=== PATIENT | male | born 1960 | race Caucasian/White ===

== ENCOUNTER → 2016-07-30 | Day surgery (SDC) | payer BC ==
[~2016-07-30] MED LIST: ACETAMINOPHEN TAB 325 MG TAB PO PRN; ALPRAZolam 0.25 MG TAB PO PRN; ALPRAZolam 0.5 MG TAB PO PRN; ASPIRIN 325 MG TAB PO STA; ATORVASTATIN 80 MG TAB PO STA; HEPARIN SODIUM 1,000 UNIT/ML VIAL ONE; HYDROmorphone 2 MG/ML 1 ML SYRINGE IV ONE; HYDROmorphone 2 MG/ML 1 ML SYRINGE ONE; IOHEXOL 350 MG/ML 125ML BOTTLE INJ ONE; LIDOCAINE 2% INJ 20 MG/ML (20 ML MDV) ONE; LIDOCAINE 2% INJ 20 MG/ML SQ ONE; MIDAZOLAM 2 MG/2 ML VIAL IV ONE; MIDAZOLAM 2 MG/2 ML VIAL ONE; NITROGLYCERIN SL TABS 0.4 MG TAB SUBLINGUAL PRN; RX INFO: IV CONTRAST WAS GIVEN 1 EACH MISC MISCELLANE PRN; SODIUM CHLORIDE 0.9% 1,000 ML IV ONE; SODIUM CHLORIDE 0.9% 1,000 ML IV SCH; SODIUM CHLORIDE 0.9% 1,000 ML in EMPTY BAG 1 BAG IV ONE; VERAPAMIL 2.5 MG/ML 2 ML AMP ONE; diphenhydrAMINE 50 MG/ML 1 ML VIAL IVP ONE; diphenhydrAMINE 50 MG/ML 1 ML VIAL ONE
[2016-07-30 08:09] VITALS: RESP 16; TEMP 98.6
[2016-07-30 08:21] LABS: Glucose,Whole Blood 160 mg/dL (75-99)
[2016-07-30 08:37] LABS: Basophils # (A) 0.1 k/uL (0-0.2); Basophils % (A) 1 %; CH 31.4; CHCM 33.9; Eosinophils # (A) 0.5 k/uL (0-0.7); Eosinophils % (A) 4 %; HCT 44.9 % (39.0-53.0); HDW 2.56; HGB 14.9 gm/dL (13.0-17.5); Luc # (Auto) 0.33; Luc % (Auto) 3; Lymphocytes # (A) 3.5 k/uL (1.0-4.8); Lymphocytes % (A) 29 %; MCH 30.9 pg (25.0-35.0); MCHC 33.2 g/dL (31.0-37.0); MCV 93.2 fL (80.0-100.0); Mean Platelet Volume 6.6; Monocytes # (A) 0.9 k/uL (0-1.0); Monocytes % (A) 7 %; Neutrophils # (A) 6.8 k/uL (1.3-7.7); Neutrophils % (A) 56 %; RBC 4.82 m/uL (4.30-5.90); RDW 13.6 % (11.5-15.5); WBC 12.1 k/uL (3.8-10.6); WBC (Perox) 12.15
[2016-07-30 08:51] LABS: Anion Gap 9 mmol/L; Blood Urea Nitrogen 16 mg/dL (9-20); Calcium 9.3 mg/dL (8.4-10.2); Carbon Dioxide 26 mmol/L (22-30); Chloride 108 mmol/L (98-107); Glucose 163 mg/dL (74-99); Non-African American GFR(MDRD) >60 (>60 ml/min/1.73 sqM); Potassium 4.4 mmol/L (3.5-5.1); Sodium 143 mmol/L (137-145)
[2016-07-30] MEDS: VERAPAMIL SYRINGE (5 MG/10 ML) INTRAARTER ONE ×2 (09:18→09:29)
[2016-07-30 10:13] LABS: Glucose,Whole Blood 168 mg/dL (75-99)
[2016-07-30 14:02] VITALS: BP 141/80; PULSE 74
--- NOTE | 2016-07-30 22:46 | CC ---
DATE OF SERVICE: 07/30/2016 Performing physician: Yobany Brownlee M.D. store sales manager. PROCEDURE PERFORMED: 1. Selective right and left coronary angiogram. 2. Left heart catheterization. INDICATION: This is a pleasant 55-year-old gentleman with known diabetes, hypertension, dyslipidemia who was going to have shoulder surgery and underwent stress test, showed ischemia inferiorly. He was brought today to undergo a heart catheterization. Approach: Right radial artery. COMPLICATIONS: None. Level of sedation: Moderate with sedation length of about 30 minutes. PROCEDURE DESCRIPTION: After obtaining an informed consent, the patient was brought to the cardiac shift lab technician. Right radial artery was cannulated using micropuncture technique. The micropuncture wire passed easily, then I placed 6 Kinyarwanda sheath in the right radial artery. Subsequently, I gave the patient 2 mg of verapamil IA and 3000 units of heparin IV. After that, I did selective right and left coronary angiogram using JR4 and JL 3.5 catheters. The procedure was completed without any complication. SELECTIVE CORONARY ANGIOGRAM: 1. The right coronary artery is a large-caliber vessel and it is a dominant vessel. The RCA is angiographically normal. It bifurcates distally into PDA and PLV branches; both are angiographically normal. 2. The left main is angiographically normal. It bifurcates into the left circumflex and left anterior descending artery. 3. The left circumflex is a large-caliber vessel and it is a nondominant vessel. The proximal left circumflex is angiographically normally. The mid circumflex is angiographically normal and gives rise to the first and second obtuse marginal branches; both are angiographically normal and the left circumflex continues after that ended in the AV groove. 4. Left anterior descending artery: The proximal LAD is angiographically normal and gives rise to the large first diagonal branch, which seems to be angiographically normal. The mid LAD and distal LAD are angiographically normal. HEMODYNAMICS: The left ventricular end-diastolic pressure appeared to be 18 mmHg and no gradient was identified across the aortic valve. CONCLUSION: 1. Normal coronary angiogram. 2. Normal left ventricular end-diastolic pressure. POSTPROCEDURE MANAGEMENT: 1. Medical treatment. 2. Follow up with the patient.
--- NOTE | 2016-07-30 22:48 | LTR ---
July 30, 2016 RE: Nathaniel Alberto Dear Rajinder: Mr. Nathaniel Rodriguez underwent a heart catheterization and that showed normal coronary angiogram. I want to thank you for allowing me to participate in his care. Please do not hesitate to call if you have any question or concerns. Sincerely, REG MATTHEWS MD
== END ==
LOC: CATHCVL 07:44
PROVIDERS: ATTEND Internal Medicine Interventional Cardiology
DX: R94.39 Abnormal result of other cardiovascular function study (principal); I25.110 Atherosclerotic heart disease of native coronary artery with unstable angina pectoris; E78.00 Pure hypercholesterolemia, unspecified; M25.512 Pain in left shoulder; I45.10 Unspecified right bundle-branch block; E11.65 Type 2 diabetes mellitus with hyperglycemia; E78.5 Hyperlipidemia, unspecified; Z68.37 Body mass index [BMI] 37.0-37.9, adult; E66.9 Obesity, unspecified; I10 Essential (primary) hypertension; F17.210 Nicotine dependence, cigarettes, uncomplicated; Z82.49 Family history of ischemic heart disease and other diseases of the circulatory system; Z79.84 Long term (current) use of oral hypoglycemic drugs; Z79.4 Long term (current) use of insulin; Z79.899 Other long term (current) drug therapy; Z88.0 Allergy status to penicillin
CPT/HCPCS: 93454; 80048; 85025; 99152; C1894; J2001; J2250; J1170; J1200; J1644; Q9967

== ENCOUNTER 2018-04-17 11:56 | Emergency (ER) | payer BC ==
[2018-04-17 12:03] VITALS: RESP 18
--- NOTE | 2018-04-17 12:19 | ED ---
General Adult HPI - General Chief complaint: Abdominal Pain Stated complaint: abd pain Time Seen by Provider: 04/17/18 12:05 Source: patient Mode of arrival: ambulatory Limitations: no limitations - History of Present Illness Initial comments: Dictation was produced using [place] dictation software. please excuse any grammatical, word or spelling errors. Chief Complaint: 57-year-old male presents with chief complaint of left-sided abdominal pain. History of Present Illness: Patient's 57-year-old male. He presents with left- sided abdominal pain. Patient states he was recently started on doxycycline. He is approximately understood a doxycycline. He received antibiotics from [facility] treating sinusitis. Patient states she's been having watery diarrhea cramping intermittently that is localized to his epigastric and left side of his abdomen. He states that he's been having watery diarrhea without any blood or mucus. He has nausea but no vomiting. Patient denies any fever, chills or night sweats. No history of abdominal surgery. Denies any burning sensation or postprandial symptoms. The ROS documented in this emergency department record has been reviewed and confirmed by me. Those systems with pertinent positive or negative responses have been documented in the HPI. All other systems are other negative and/or noncontributory. PHYSICAL EXAM: General Impression: Alert and oriented x3, not in acute distress HEENT: Normocephalic atraumatic, extra-ocular movements intact, pupils equal and reactive to light bilaterally, mucous membranes moist. Cardiovascular: Heart regular rate and rhythm, S1&S2 audible, no murmurs, rubs or gallops Chest: Lungs clear to auscultation bilaterally, no rhonchi, no wheeze, no rales Abdomen: Bowel sounds present, abdomen soft, mild tenderness to the entire left abdomen, non-distended, no organomegaly Musculoskeletal: Pulses present and equal in all extremities, no peripheral edema Motor: Power 5/5 bilaterally, no focal deficits noted Neurological: CN II-XII grossly intact, no focal motor or sensory deficits noted Skin: Intact with no visualized rashes Psych: Normal affect and mood ED course: 57-year-old male with chief complaint of nausea, diarrhea after starting doxycycline. All signs upon arrival shows heart rate 105, rest of vital signs within acceptable limits.Laboratory evaluation obtained. CBC shows mild leukocytosis of 12.1 likely secondary to stress. Metabolic panel is unremarkable. Glucose 200. Urinalysis negative. Cardiac enzymes negative. Abdominal x-ray shows air-fluid levels likely secondary to diarrhea. Patient tolerating by mouth at bedside. He appears well. Patient's doxycycline is switched to Levaquin to treat sinusitis. symptoms consistent with medication reaction. EKG interpretation: Ventricular rate 99, normal sinus rhythm, right bundle branch block, TN interval 164, QRS 120, QTC 495. No TN prolongation, no QTC prolongation, no ST or T-wave changes noted. Overall, this EKG is unremarkable - Related Data Home Medications Medication Instructions Recorded Confirmed Citalopram Hydrobromide 20 mg PO 07/30/16 [Citalopram HBr] Insulin Glargine [Lantus] 30 SQ HS 07/30/16 Losartan [Cozaar] 100 mg PO DAILY 07/30/16 07/30/16 Lovastatin [Mevacor] 40 mg PO HS 07/30/16 07/30/16 glipiZIDE [-] 10 mg PO 07/30/16 Previous Rx's Medication Instructions Recorded Levofloxacin [Levaquin] 500 mg PO BID 7 Days #14 tab 04/17/18 Loperamide HCl [Loperamide] 2 mg PO TID #12 capsule 04/17/18 Allergies Allergy/AdvReac Type Severity Reaction Status Date / Time lisinopril Allergy Anaphylaxis Verified 04/17/18 11:58 Penicillins Allergy Rash/Hives Verified 04/17/18 11:58 Review of Systems ROS Statement: Those systems with pertinent positive or pertinent negative responses have been documented in the HPI. ROS Other: All systems not noted in ROS Statement are negative. Past Medical History Past Medical History: Diabetes Mellitus, Hypertension History of Any Multi-Drug Resistant Organisms: None Reported Additional Past Surgical History / Comment(s): carpal tunnel Past Psychological History: No Psychological Hx Reported Smoking Status: Current every day smoker Past Alcohol Use History: Rare Past Drug Use History: None Reported General Exam Limitations: no limitations Course Vital Signs 04/17/18 11:58 Temperature 98.4 F Pulse Rate 105 H Respiratory 18 Rate Blood Pressure 137/85 O2 Sat by Pulse 97 Oximetry Medical Decision Making - Lab Data Result diagrams: 04/17/18 12:46 04/17/18 12:46 Lab Results 04/17/18 04/17/18 04/17/18 Range/Units 12:46 12:46 12:46 WBC 12.1 H (3.8-10.6) k/uL RBC 5.28 (4.30-5.90) m/uL Hgb 16.1 (13.0-17.5) gm/dL Hct 48.8 (39.0-53.0) % MCV 92.5 (80.0-100.0) fL MCH 30.5 (25.0-35.0) pg MCHC 32.9 (31.0-37.0) g/dL RDW 13.7 (11.5-15.5) % Plt Count 231 (150-450) k/uL Neutrophils % 65 % Lymphocytes % 22 % Monocytes % 7 % Eosinophils % 2 % Basophils % 1 % Neutrophils # 7.9 H (1.3-7.7) k/uL Lymphocytes # 2.7 (1.0-4.8) k/uL Monocytes # 0.9 (0-1.0) k/uL Eosinophils # 0.3 (0-0.7) k/uL Basophils # 0.1 (0-0.2) k/uL Sodium 139 (137-145) mmol/L Potassium 4.4 (3.5-5.1) mmol/L Chloride 107 (98-107) mmol/L Carbon Dioxide 25 (22-30) mmol/L Anion Gap 7 mmol/L BUN 16 (9-20) mg/dL Creatinine 0.63 L (0.66-1.25) mg/dL Est GFR (CKD-EPI)AfAm >90 (>60 ml/min/1.73 sqM) Est GFR (CKD-EPI)NonAf >90 (>60 ml/min/1.73 sqM) Glucose 200 H (74-99) mg/dL Calcium 9.3 (8.4-10.2) mg/dL Total Bilirubin 0.5 (0.2-1.3) mg/dL AST 32 (17-59) U/L ALT 45 (21-72) U/L Alkaline Phosphatase 96 (38-126) U/L Total Creatine Kinase 133 (55-170) U/L CK-MB (CK-2) 1.3 (0.0-2.4) ng/mL CK-MB (CK-2) Rel Index 1.0 Troponin I <0.012 (0.000-0.034) ng/mL Total Protein 7.3 (6.3-8.2) g/dL Albumin 3.9 (3.5-5.0) g/dL Lipase 125 (23-300) U/L Urine Color Urine Appearance (Clear) Urine pH (5.0-8.0) Ur Specific [place] (1.001-1.035) Urine Protein (Negative) Urine Glucose (UA) (Negative) Urine Ketones (Negative) Urine Blood (Negative) Urine Nitrite (Negative) Urine Bilirubin (Negative) Urine Urobilinogen (<2.0) mg/dL Ur Leukocyte Esterase (Negative) Urine WBC (0-5) /hpf Ur Squamous Epith Cells (0-4) /hpf Urine Mucus (None) /hpf 04/17/18 Range/Units 12:46 WBC (3.8-10.6) k/uL RBC (4.30-5.90) m/uL Hgb (13.0-17.5) gm/dL Hct (39.0-53.0) % MCV (80.0-100.0) fL MCH (25.0-35.0) pg MCHC (31.0-37.0) g/dL RDW (11.5-15.5) % Plt Count (150-450) k/uL Neutrophils % % Lymphocytes % % Monocytes % % Eosinophils % % Basophils % % Neutrophils # (1.3-7.7) k/uL Lymphocytes # (1.0-4.8) k/uL Monocytes # (0-1.0) k/uL Eosinophils # (0-0.7) k/uL Basophils # (0-0.2) k/uL Sodium (137-145) mmol/L Potassium (3.5-5.1) mmol/L Chloride (98-107) mmol/L Carbon Dioxide (22-30) mmol/L Anion Gap mmol/L BUN (9-20) mg/dL Creatinine (0.66-1.25) mg/dL Est GFR (CKD-EPI)AfAm (>60 ml/min/1.73 sqM) Est GFR (CKD-EPI)NonAf (>60 ml/min/1.73 sqM) Glucose (74-99) mg/dL Calcium (8.4-10.2) mg/dL Total Bilirubin (0.2-1.3) mg/dL AST (17-59) U/L ALT (21-72) U/L Alkaline Phosphatase (38-126) U/L Total Creatine Kinase (55-170) U/L CK-MB (CK-2) (0.0-2.4) ng/mL CK-MB (CK-2) Rel Index Troponin I (0.000-0.034) ng/mL Total Protein (6.3-8.2) g/dL Albumin (3.5-5.0) g/dL Lipase (23-300) U/L Urine Color Yellow Urine Appearance Clear (Clear) Urine pH 5.5 (5.0-8.0) Ur Specific [place] 1.030 (1.001-1.035) Urine Protein 2+ H (Negative) Urine Glucose (UA) Trace H (Negative) Urine Ketones Trace H (Negative) Urine Blood Negative (Negative) Urine Nitrite Negative (Negative) Urine Bilirubin Negative (Negative) Urine Urobilinogen 2.0 (<2.0) mg/dL Ur Leukocyte Esterase Negative (Negative) Urine WBC 2 (0-5) /hpf Ur Squamous Epith Cells <1 (0-4) /hpf Urine Mucus Moderate H (None) /hpf Disposition Clinical Impression: Diarrhea Disposition: HOME SELF-CARE Condition: Good Instructions (If sedation given, give patient instructions): Loperamide (By mouth) Prescriptions: Levofloxacin [Levaquin] 500 mg PO BID 7 Days #14 tab Loperamide HCl [Loperamide] 2 mg PO TID #12 capsule Is patient prescribed a controlled substance at d/c from ED?: No Referrals: Nav Adams DO [Primary Care Provider] - 1-2 days Time of Disposition: 13:40
[2018-04-17] MEDS ORDERED: SODIUM CHLORIDE 0.9% 500 ML IV STA (12:20)
[2018-04-17 13:00] LABS: Basophils # (A) 0.1 k/uL (0-0.2); Basophils % (A) 1 %; Eosinophils # (A) 0.3 k/uL (0-0.7); Eosinophils % (A) 2 %; HCT 48.8 % (39.0-53.0); HGB 16.1 gm/dL (13.0-17.5); Lymphocytes # (A) 2.7 k/uL (1.0-4.8); Lymphocytes % (A) 22 %; MCH 30.5 pg (25.0-35.0); MCHC 32.9 g/dL (31.0-37.0); MCV 92.5 fL (80.0-100.0); Mean Platelet Volume 6.2; Monocytes # (A) 0.9 k/uL (0-1.0); Monocytes % (A) 7 %; Neutrophils # (A) 7.9 k/uL (1.3-7.7); Neutrophils % (A) 65 %; Platelet Count 231 k/uL (150-450); RBC 5.28 m/uL (4.30-5.90); RDW 13.7 % (11.5-15.5); WBC 12.1 k/uL (3.8-10.6)
[2018-04-17 13:02] LABS: Appearance,Urine Clear (Clear); Bilirubin,Urine Negative (Negative); Blood,Urine Negative (Negative); Color,Urine Yellow; Glucose,Urine (UA) Trace (Negative); Ketones,Urine Trace (Negative); Leukocyte Esterase,Urine Negative (Negative); Mucus,Urine Moderate /hpf; Nitrite,Urine Negative (Negative); PH, Urine 5.5 (5.0-8.0); Protein,Urine 2+ (Negative); Squamous Epithelial Cell,Urine <1 /hpf (0-4); WBC,Urine 2 /hpf (0-5)
--- NOTE | 2018-04-17 13:10 | XR ---
EXAMINATION TYPE: XR KUB DATE OF EXAM: 04/17/2018 COMPARISON: NONE HISTORY: 57-year-old male with abdominal pain TECHNIQUE: 2 views FINDINGS: Scattered small air-fluid levels. No dilated bowel loops. Air-fluid level seen to involve central sma ll bowel and splenic flexure. No significant stool burden. No suspicious calcifications seen. No free intraperitoneal air identified. IMPRESSION: Scattered small air-fluid levels appear to be within both small bowel and colon. Correlate for ileus or arthritis. Overall nonobstructive bowel gas pattern. No free air.
[2018-04-17 13:11] LABS: ALT 45 U/L (21-72); AST 32 U/L (17-59); Albumin 3.9 g/dL (3.5-5.0); Alkaline Phosphatase 96 U/L (38-126); Anion Gap 7 mmol/L; Blood Urea Nitrogen 16 mg/dL (9-20); Calcium 9.3 mg/dL (8.4-10.2); Carbon Dioxide 25 mmol/L (22-30); Chloride 107 mmol/L (98-107); Glucose 200 mg/dL (74-99); Lipase 125 U/L (23-300); Potassium 4.4 mmol/L (3.5-5.1); Sodium 139 mmol/L (137-145); Total Bilirubin 0.5 mg/dL (0.2-1.3); Total Protein 7.3 g/dL (6.3-8.2)
[2018-04-17 13:22] LABS: Creatine Kinase 133 U/L (55-170)
[2018-04-17 13:35] LABS: Creatine Kinase MB 1.3 ng/mL (0.0-2.4); Troponin I <0.012 ng/mL (0.000-0.034)
[2018-04-17 14:07] VITALS: BP 134/79; PULSE 92; TEMP 97.6
== END 2018-04-17 14:07 | disposition home or self-care (01) ==
LOC: EC 11:56
DX: R19.7 Diarrhea, unspecified (principal); R11.0 Nausea; D72.829 Elevated white blood cell count, unspecified; E11.65 Type 2 diabetes mellitus with hyperglycemia; I10 Essential (primary) hypertension; F17.200 Nicotine dependence, unspecified, uncomplicated; Z79.4 Long term (current) use of insulin; Z79.899 Other long term (current) drug therapy; Z88.8 Allergy status to other drugs, medicaments and biological substances; Z88.5 Allergy status to narcotic agent
CPT/HCPCS: 36415; 74018; 80053; 81001; 82550; 82553; 83690; 84484; 85025; 93005; 96360; 99284

== ENCOUNTER 2018-07-07 08:32 | Day surgery (SDC) | payer BC ==
[2018-07-04 09:30] VITALS: BMI 33.7
[~2018-07-07 08:32] MED LIST changes: -ACETAMINOPHEN TAB 325 MG TAB PO PRN; -ALPRAZolam 0.25 MG TAB PO PRN; -ALPRAZolam 0.5 MG TAB PO PRN; -ASPIRIN 325 MG TAB PO STA; -ATORVASTATIN 80 MG TAB PO STA; -HEPARIN SODIUM 1,000 UNIT/ML VIAL ONE; -HYDROmorphone 2 MG/ML 1 ML SYRINGE IV ONE; -HYDROmorphone 2 MG/ML 1 ML SYRINGE ONE; -IOHEXOL 350 MG/ML 125ML BOTTLE INJ ONE; +LACTATED RINGERS 1,000 ML IV SCH; +LIDOCAINE 1% 20 ML VIAL (10MG/ML) FOR IV START INTRADERMA PRN; -LIDOCAINE 2% INJ 20 MG/ML (20 ML MDV) ONE; -LIDOCAINE 2% INJ 20 MG/ML SQ ONE; -MIDAZOLAM 2 MG/2 ML VIAL IV ONE; -MIDAZOLAM 2 MG/2 ML VIAL ONE; -NITROGLYCERIN SL TABS 0.4 MG TAB SUBLINGUAL PRN; -RX INFO: IV CONTRAST WAS GIVEN 1 EACH MISC MISCELLANE PRN; -SODIUM CHLORIDE 0.9% 1,000 ML IV ONE; -SODIUM CHLORIDE 0.9% 1,000 ML IV SCH; -SODIUM CHLORIDE 0.9% 1,000 ML in EMPTY BAG 1 BAG IV ONE; -VERAPAMIL 2.5 MG/ML 2 ML AMP ONE; -diphenhydrAMINE 50 MG/ML 1 ML VIAL IVP ONE; -diphenhydrAMINE 50 MG/ML 1 ML VIAL ONE
[2018-07-07 09:06] VITALS: TEMP 99.2
[2018-07-07] MEDS ORDERED: LIDOCAINE 1% 20 ML VIAL (10MG/ML) FOR IV START INTRADERMA ONE (09:08)
[2018-07-07 09:10] LABS: Glucose,Whole Blood 178 mg/dL (75-99)
[2018-07-07] MEDS ORDERED: PROPOFOL 10 MG/ML 20 ML VIAL IV ONE (09:10)
--- NOTE | 2018-07-07 10:04 | P.PCN ---
Date of Procedure: 07/07/18 Procedure(s) Performed: Procedure: Colonoscopy and polypectomy. Preoperative diagnosis: Screening for neoplasia, patient has history of polyps. Postoperative diagnosis: 1. Sigmoid diverticulosis with no evidence of acute diverticulitis or strictures. 2. Few small polyps snared but no large polyps or cancer. Preparation: HalfLytely prep. Sedation: Was provided by anesthesia. Brief clinical history: The patient is a 57-year-old male who is scheduled for this evaluation for screening for neoplasia because of history of polyps in addition to age as the risk factor. His last colonoscopy was in 2015. The patient has no abdominal complaints, bleeding or anemia. Procedure: With the patient on his left lateral decubitus position and after informed consent and adequate sedation, the perianal area was inspected and it did not show any fissures or fistulas. There were no masses felt on digital rec edward examination. The Olympus CFH 190L video colonoscope was then inserted in the rectum in the usual fashion and advanced to the cecum. There were 2 small polyps in the proximal descending colon which were snared and retrieved by suction. A small polyp was seen in the rectum close to the rectosigmoid junction which was snared and retrieved by suction as well. Multiple diverticular orifices were seen scattered in the sigmoid with no evidence of acute diverticulitis or strictures. The mucosa appeared healthy. I retroflexed the endoscope in the rectum before the endoscope was withdrawn. Low-grade residual noted with no evidence of bleeding. The patient tolerated the procedure well. Plan: The patient was reassured. Discussed dietary measures. He will follow up with you as planned and I recommended repeat exam in 5 years.
[2018-07-07 10:28] VITALS: BP 154/97; PULSE 67; RESP 18
== END 2018-07-07 11:00 | disposition home or self-care (01) ==
LOC: ORWHC2ENDO 08:32
DX: Z12.11 Encounter for screening for malignant neoplasm of colon (principal); D12.4 Benign neoplasm of descending colon; D12.8 Benign neoplasm of rectum; K57.30 Diverticulosis of large intestine without perforation or abscess without bleeding; Z86.010 Personal history of colon polyps; E11.9 Type 2 diabetes mellitus without complications; I10 Essential (primary) hypertension; G47.33 Obstructive sleep apnea (adult) (pediatric); F41.9 Anxiety disorder, unspecified; F17.210 Nicotine dependence, cigarettes, uncomplicated; Z88.0 Allergy status to penicillin; Z88.8 Allergy status to other drugs, medicaments and biological substances; Z79.4 Long term (current) use of insulin; Z79.899 Other long term (current) drug therapy
CPT/HCPCS: 88305; 45385; J2704

== ENCOUNTER 2020-03-14 11:47 | Emergency (ER) | payer BC ==
[2020-03-14 11:57] VITALS: BP 156/85; PULSE 87; RESP 18; TEMP 97.6
[2020-03-14] MEDS ORDERED: ONDANSETRON 4 MG/2 ML VIAL IVP STA (12:17)
[2020-03-14] MEDS ORDERED: MORPHINE SULFATE 4 MG/ML SYRINGE IV STA (12:17)
[2020-03-14] MEDS ORDERED: SODIUM CHLORIDE 0.9% 1,000 ML IV STA (12:17)
--- NOTE | 2020-03-14 12:32 | ED ---
General Adult HPI - General Chief complaint: Abdominal Pain Stated complaint: Abd Pain Time Seen by Provider: 03/14/20 12:14 Source: patient, RN notes reviewed Mode of arrival: ambulatory Limitations: no limitations - History of Present Illness Initial comments: Patient is a 59-year-old male presented to the emergency room today with chief complaint of right-sided abdominal pain and back pain. Patient does admit that he woke up feeling a little achy. He states that a few hours later he began having some discomfort in the right side of the back that seems to go straight through to the front. She describes it as sharp pain. Currently rates it an 8/10. Patient states never had similar pains in the past. He denies any other complaints or symptoms currently. Patient denies any recent fever, chills, shortness of breath, chest pain, headaches or visual changes, or any other complaints. - Related Data Home Medications Medication Instructions Recorded Confirmed Losartan [Cozaar] 100 mg PO DAILY 07/30/16 03/14/20 Lovastatin [Mevacor] 40 mg PO HS 07/30/16 03/14/20 Dulaglutide [Trulicity] 1.5 mg SQ WE 04/17/18 03/14/20 metFORMIN HCL [Glucophage] 1,000 mg PO BID 04/17/18 03/14/20 ALPRAZolam [Xanax] 0.25 mg PO TID PRN 03/14/20 03/14/20 Insulin Glargine,Hum.rec.anlog 40 unit SQ HS 03/14/20 03/14/20 [Lantus Solostar] Lovastatin [Mevacor] 40 mg PO HS 03/14/20 03/14/20 fluvoxaMINE MALEATE [Fluvoxamine 100 mg PO BID 03/14/20 03/14/20 Maleate] glipiZIDE XL [Glucotrol Xl] 10 mg PO DAILY 03/14/20 03/14/20 Previous Rx's Medication Instructions Recorded HYDROcodone/APAP 5-325MG [[place] 5] 1 each PO Q6HR PRN #12 tab 03/14/20 Ibuprofen [Motrin] 800 mg PO Q6HR #30 tab 03/14/20 Ondansetron [Zofran] 4 mg PO Q8HR PRN #15 tab 03/14/20 Tamsulosin [Flomax] 0.4 mg PO DAILY #10 cap 03/14/20 Allergies Allergy/AdvReac Type Severity Reaction Status Date / Time lisinopril Allergy Anaphylaxis Verified 03/14/20 13:26 Penicillins Allergy Rash/Hives Verified 03/14/20 13:26 Review of Systems ROS Statement: Those systems with pertinent positive or pertinent negative responses have been documented in the HPI. ROS Other: All systems not noted in ROS Statement are negative. Past Medical History Past Medical History: Diabetes Mellitus, Hypertension, Sleep Apnea/CPAP/BIPAP History of Any Multi-Drug Resistant Organisms: None Reported Past Surgical History: Heart Catheterization Additional Past Surgical History / Comment(s): carpal tunnel, COLONOSCOPY , RIGHT AND LEFT SHOULDER MANIPULATION Past Anesthesia/Blood Transfusion Reactions: No Reported Reaction Past Psychological History: Anxiety Smoking Status: Current every day smoker Past Alcohol Use History: Rare Past Drug Use History: None Reported - Past Family History Mother Family Medical History: Deep Vein Thrombosis (DVT) Brother(s) Family Medical History: Cancer General Exam - General Exam Comments Initial Comments: General: The patient is awake and alert, in no distress, and does not appear acutely ill. Eye: extra-ocular movements are intact. No nystagmus. There is normal conjunctiva bilaterally. No signs of icterus. Ears, nose, mouth and throat: There are moist mucous membranes and no oral lesions. Neck: The neck is supple, there is no tenderness or JVD. Cardiovascular: There is a regular rate and rhythm. No murmur, rub or gallop is appreciated. Respiratory: Lungs are clear to auscultation, respirations are non-labored, breath sounds are equal. No wheezes, stridor, rales, or rhonchi. Gastrointestinal: Admits soft on palpation. Patient does have tenderness in the right lower quadrant. Mild tenderness to the right flank. No rebound, guarding. Musculoskeletal: Normal ROM, no tenderness. Strength 5/5. Sensation intact. Neurological: A&O x 3. CN II-XII intact, There are no obvious motor or sensory deficits. Coordination appears grossly intact. Speech is normal. Skin: Skin is warm and dry and no rashes or lesions are noted. Psychiatric: Cooperative, appropriate mood & affect, normal judgment. Limitations: no limitations Course Vital Signs 03/14/20 11:54 Temperature 97.6 F Pulse Rate 87 Respiratory 18 Rate Blood Pressure 156/85 O2 Sat by Pulse 98 Oximetry Medical Decision Making - Medical Decision Making Patient's CT of the end pelvis is reviewed and does show 2 mm stone in the proximal right ureter. Patient's labs been reviewed. Urinalysis does show red cells no sign of infection. Patient given pain medication here in emergency room. Will be discharged home on Flomax, pain medication, Zofran. Advised foll ow-up with urology over the next 2 days returning if any symptoms increase or worsen or for any other concerns. Patient states understanding and is in agreement. - Lab Data Result diagrams: 03/14/20 12:25 03/14/20 12:25 Lab Results 03/14/20 03/14/20 03/14/20 Range/Units 12:25 12:25 12:25 WBC 12.5 H (3.8-10.6) k/uL RBC 5.21 (4.30-5.90) m/uL Hgb 16.3 (13.0-17.5) gm/dL Hct 48.1 (39.0-53.0) % MCV 92.2 (80.0-100.0) fL MCH 31.3 (25.0-35.0) pg MCHC 33.9 (31.0-37.0) g/dL RDW 12.8 (11.5-15.5) % Plt Count 224 (150-450) k/uL MPV 7.1 Neutrophils % 56 % Lymphocytes % 31 % Monocytes % 5 % Eosinophils % 5 % Basophils % 1 % Neutrophils # 6.9 (1.3-7.7) k/uL Lymphocytes # 3.8 (1.0-4.8) k/uL Monocytes # 0.7 (0-1.0) k/uL Eosinophils # 0.6 (0-0.7) k/uL Basophils # 0.1 (0-0.2) k/uL Sodium 138 (137-145) mmol/L Potassium 4.2 (3.5-5.1) mmol/L Chloride 102 (98-107) mmol/L Carbon Dioxide 26 (22-30) mmol/L Anion Gap 10 mmol/L BUN 15 (9-20) mg/dL Creatinine 0.72 (0.66-1.25) mg/dL Est GFR (CKD-EPI)AfAm >90 (>60 ml/min/1.73 sqM) Est GFR (CKD-EPI)NonAf >90 (>60 ml/min/1.73 sqM) Glucose 401 H (74-99) mg/dL Calcium 9.5 (8.4-10.2) mg/dL Total Bilirubin 0.4 (0.2-1.3) mg/dL AST 37 (17-59) U/L ALT 48 (4-49) U/L Alkaline Phosphatase 96 (38-126) U/L Total Protein 7.8 (6.3-8.2) g/dL Albumin 4.3 (3.5-5.0) g/dL Amylase 69 (30-110) U/L Lipase 146 (23-300) U/L Urine Color Yellow Urine Appearance Clear (Clear) Urine pH 5.5 (5.0-8.0) Ur Specific [place] 1.034 (1.001-1.035) Urine Protein 1+ H (Negative) Urine Glucose (UA) 4+ H (Negative) Urine Ketones Negative (Negative) Urine Blood Large H (Negative) Urine Nitrite Negative (Negative) Urine Bilirubin Negative (Negative) Urine Urobilinogen <2.0 (<2.0) mg/dL Ur Leukocyte Esterase Negative (Negative) Urine RBC >182 H (0-5) /hpf Urine WBC 1 (0-5) /hpf Disposition Clinical Impression: Kidney stone Disposition: HOME SELF-CARE Condition: Good Instructions (If sedation given, give patient instructions): Kidney Stones (ED) Additional Instructions: Please use medication as discussed. Please follow-up with family doctor/urology in the next 2 days. Please return to emergency room if the symptoms increase or worsen or for any other concerns. Prescriptions: Tamsulosin [Flomax] 0.4 mg PO DAILY #10 cap Ibuprofen [Motrin] 800 mg PO Q6HR #30 tab HYDROcodone/APAP 5-325MG [[place] 5] 1 each PO Q6HR PRN #12 tab PRN Reason: Pain Ondansetron [Zofran] 4 mg PO Q8HR PRN #15 tab PRN Reason: Nausea Is patient prescribed a controlled substance at d/c from ED?: No Referrals: Nav Adams DO [Primary Care Provider] - 1-2 days Adin Schumacher MD [STAFF PHYSICIAN] - 1-2 days Time of Disposition: 14:47
[2020-03-14 12:45] LABS: Basophils # (A) 0.1 k/uL (0-0.2); Basophils % (A) 1 %; Eosinophils # (A) 0.6 k/uL (0-0.7); Eosinophils % (A) 5 %; HCT 48.1 % (39.0-53.0); HGB 16.3 gm/dL (13.0-17.5); Lymphocytes # (A) 3.8 k/uL (1.0-4.8); Lymphocytes % (A) 31 %; MCH 31.3 pg (25.0-35.0); MCHC 33.9 g/dL (31.0-37.0); MCV 92.2 fL (80.0-100.0); Mean Platelet Volume 7.1; Monocytes # (A) 0.7 k/uL (0-1.0); Monocytes % (A) 5 %; Neutrophils # (A) 6.9 k/uL (1.3-7.7); Neutrophils % (A) 56 %; Platelet Count 224 k/uL (150-450); RBC 5.21 m/uL (4.30-5.90); RDW 12.8 % (11.5-15.5); WBC 12.5 k/uL (3.8-10.6)
[2020-03-14 12:56] LABS: Appearance,Urine Clear (Clear); Bilirubin,Urine Negative (Negative); Blood,Urine Large (Negative); Color,Urine Yellow; Glucose,Urine (UA) 4+ (Negative); Ketones,Urine Negative (Negative); Leukocyte Esterase,Urine Negative (Negative); Nitrite,Urine Negative (Negative); PH, Urine 5.5 (5.0-8.0); Protein,Urine 1+ (Negative); RBC,Urine >182 /hpf (0-5); Specific Gravity,Urine 1.034 (1.001-1.035); Urobilinogen,Urine <2.0 mg/dL (<2.0); WBC,Urine 1 /hpf (0-5)
[2020-03-14 13:15] LABS: ALT 48 U/L (4-49); AST 37 U/L (17-59); African American GFR (CKD) >90 (>60 ml/min/1.73 sqM); Albumin 4.3 g/dL (3.5-5.0); Alkaline Phosphatase 96 U/L (38-126); Amylase 69 U/L (30-110); Anion Gap 10 mmol/L; Blood Urea Nitrogen 15 mg/dL (9-20); Calcium 9.5 mg/dL (8.4-10.2); Carbon Dioxide 26 mmol/L (22-30); Chloride 102 mmol/L (98-107); Glucose 401 mg/dL (74-99); Lipase 146 U/L (23-300); Non-African American GFR(CKD) >90 (>60 ml/min/1.73 sqM); Potassium 4.2 mmol/L (3.5-5.1); Sodium 138 mmol/L (137-145); Total Bilirubin 0.4 mg/dL (0.2-1.3); Total Protein 7.8 g/dL (6.3-8.2)
[2020-03-14] MEDS ORDERED: HYDROmorphone 0.5 MG/0.5 ML SYRINGE IVP STA ×2 (13:37→14:39)
--- NOTE | 2020-03-14 14:33 | CT ---
EXAMINATION TYPE: CT abdomen pelvis w con DATE OF EXAM: 03/14/2020 COMPARISON: None. HISTORY: Abd pain in particular right lower quadrant pain with history of diverticular disease CT DLP: 1781.1 mGycm, Automated Exposure Control for Dose Reduction was Utilized. CONTRAST: CT scan of the abdomen and pelvis is performed without oral but with IV Contrast, patient injected wi th 100 mL of Isovue 300. FINDINGS: LUNG BASES: No significant abnormality is appreciated. LIVER/GB: Visualized liver is heterogeneously hypodense suggesting diffuse fatty infiltration. PANCREAS: No significant abnormality is seen. SPLEEN: No significant abnormality is seen. ADRENALS: No significant abnormality is seen. KIDNEYS: Symmetric cortical medullary uptake but delayed excretion from right kidney. There is 2 to 3 mm nonobstructing lower pole left renal calculus coronal image 62. Measurement uptake and excretion left kidney is seen without hydronephrosis. No right-sided renal cortical calculi. There is 2 mm calc ulus in the proximal right ureter coronal image 56 causing mild right-sided hydronephrosis. No distal hydroureter or second calculus. There is exophytic 3.8 cm low dense lesion anteriorly from the upper to midpole level right kidney axial image 39, Hounsfield units average 28. Suspect proteinaceous cys t. Advise nonemergent ultrasound confirmation to exclude solid mass which is unlikely in lesion with Hounsfield units less than 30. BOWEL: Redundant sigmoid colon. Scattered diverticula throughout the sigmoid colon. [id number] wall thickening in the right pelvis mid sigmoid colon without surrounding inflammatory change. PROSTATE: Enlarged prostate gland consistent with BPH. Adjacent scattered bilateral pelvic phlebolith s. LYMPH NODES: No greater than 1cm abdominal or pelvic lymph nodes are appreciated. OSSEOUS STRUCTURES: Moderate multilevel spurring in the thoracic spine. OTHER: No significant additional abnormality is seen. IMPRESSION: There is 2 mm calculus in the proximal right ureter causing mild hydronephrosis and delay ed excretion.
[2020-03-14] MEDS ORDERED: KETOROLAC 15 MG/ML 1 ML VIAL IVP STA (14:39)
[2020-03-14 14:58] LABS: Glucose,Whole Blood 332 mg/dL (75-99)
[2020-03-14] MEDS ORDERED: INSULIN ASPART (NovoLOG) 100 UNIT/ML VIAL SQ ONE (15:01)
== END 2020-03-14 15:38 | disposition home or self-care (01) ==
LOC: EC 11:47
DX: N13.2 Hydronephrosis with renal and ureteral calculous obstruction (principal); E11.9 Type 2 diabetes mellitus without complications; I10 Essential (primary) hypertension; G47.30 Sleep apnea, unspecified; F17.200 Nicotine dependence, unspecified, uncomplicated; F41.9 Anxiety disorder, unspecified; Z79.899 Other long term (current) drug therapy; Z79.4 Long term (current) use of insulin; Z88.8 Allergy status to other drugs, medicaments and biological substances; Z88.0 Allergy status to penicillin; Z99.89 Dependence on other enabling machines and devices; Z95.5 Presence of coronary angioplasty implant and graft
CPT/HCPCS: 99284; 96374; 96375 ×3; 96376; 96361; 36415; 80053; 82150; 83690; 85025; 81001; 74177; J2270; J2405; J1885; J1170; Q9967

== ENCOUNTER → 2020-12-26 | Outpatient (CLI) | payer BC ==
--- NOTE | 2020-12-26 09:32 | NM ---
EXAMINATION TYPE: NM hepatobiliary w EF DATE OF EXAM: 12/26/2020 COMPARISON: CT 03/14/2020 HISTORY: R 14.0 TECHNIQUE: After the intravenous administration of 4.9 mCi Tc 99m Mebrofenin hepatobiliary scintigrap hy is performed. Immediate images post injection. FINDINGS: There is satisfactory initial accumulation of tracer by the liver. The gallbladder is visualized wit hin 4 minutes. The small bowel activity is noted within 8 minutes. At one hour 8 ounces of oral ens ure plus is given to mimic CCK and gallbladder ejection fraction is calculated at 8 %, below the lowe r limit of the normal range. Therefore there is no scintigraphic evidence of cystic or common bile d uct obstruction to suggest acute cholecystitis or gallbladder dyskinesia. IMPRESSION: Abnormal low gallbladder ejection fraction.
== END | disposition home or self-care (01) ==
LOC: RADNMMAIN 06:48
PROVIDERS: ATTEND Family Medicine
DX: K82.8 Other specified diseases of gallbladder (principal)
CPT/HCPCS: 78226; A9537

== ENCOUNTER → 2021-01-16 | Outpatient (CLI) | payer BC ==
--- NOTE | 2021-01-16 13:19 | US ---
EXAMINATION TYPE: US abdomen comp/pelvis limited DATE OF EXAM: 01/16/2021 COMPARISON: Correlation CT 03/14/2020 CLINICAL HISTORY: 60-year-old male R14.0 ABDOMINAL DISTENSION. Patient states he feels gaseous. TECHNIQUE: Multiple sonographic images of the abdomen and bladder are obtained. FINDINGS: EXAM MEASUREMENTS: Liver Length: 16.2 cm Gallbladder Wall: 0.2 cm CBD: 0.5 cm Spleen: 10.0 cm Right Kidney: 12.8 x 6.4 x 7.6 cm Left Kidney: 12.2 x 5.1 x 7.3 cm Pancreas: Suboptimal visualization of the pancreatic tail due to shadowing from bowel gas. Liver: Grossly heterogenous and course in appearance with increased echogenicity. No focal lesion id entified. Gallbladder: wnl as visualized CBD: wnl Spleen: wnl Kidney: No hydronephrosis. Upper IVC: wnl Abd Aorta: No AAA visualized Bladder: Under distention limits its evaluation. Bilateral Jets not seen IMPRESSION: 1. Very heterogeneous liver parenchyma suggests underlying hepatocellular disease or fatty infiltrati on. Further evaluation recommended. 2. No gallstones or biliary ductal dilatation. 3. Underdistention of the bladder limits its evaluation.
== END | disposition home or self-care (01) ==
LOC: RADUSWWP 08:46
PROVIDERS: ATTEND Family Medicine
DX: K76.89 Other specified diseases of liver (principal)
CPT/HCPCS: 76700; 76857

== ENCOUNTER 2021-06-30 09:21 | Day surgery (SDC) | payer BC ==
[2021-06-28 13:23] VITALS: BMI 34.4
[~2021-06-30 09:21] MED LIST changes: -LIDOCAINE 1% 20 ML VIAL (10MG/ML) FOR IV START INTRADERMA PRN
[2021-06-30 09:53] VITALS: BP 170/87; RESP 16; TEMP 97.5
[2021-06-30 10:01] LABS: Glucose,Whole Blood 112 mg/dL (75-99)
[2021-06-30] MEDS ORDERED: PROPOFOL 10 MG/ML 20 ML VIAL IV ONE (11:00)
[2021-06-30] MEDS ORDERED: LIDOCAINE 2% INJ 20 MG/ML (2 ML VIAL) ONE (11:00)
--- NOTE | 2021-06-30 11:30 | P.PCN ---
Date of Procedure: 06/30/21 Procedure(s) Performed: BRIEF HISTORY: Patient is a 60-year-old pleasant white male scheduled for an elective colonoscopy as a part of evaluation of prior history of colon polyps. Last colonoscopy was 3 years ago. PROCEDURE PERFORMED: Colonoscopy. PREOPERATIVE DIAGNOSIS: History of colon polyps. IV sedation per Anesthesia. PROCEDURE: After informed consent was obtained, the patient, was brought into the endoscopy unit. IV sedation was administered by Anesthesia under continuous monitoring. Digital rectal examination was normal. Initially the Olympus CF-160 flexible video colonoscope was then inserted in the rectum, gradually advanced into the cecum without any difficulty. Careful examination was performed as the scope was gradually being withdrawn. Ileocecal valve and the appendiceal orifice were visualized and appeared normal. Prep was poor and several areas of the colon. Thorough irrigation was performed. Mucosa of the cecum, ascending colon, transverse colon, descending colon, sigmoid colon, and rectum appeared normal. At her sigmoid diverticulosis seen. Retroflexion was performed in the rectum and in grade 2 ternal hemorrhoid were seen. The patient tolerated the procedure well. IMPRESSION: Normal-appearing colon from rectum to cecum with no evidence of colorectal calvin plasia Poor prep in several areas of the colon Scattered sigmoid diverticulosis Grade 2 internal hemorrhoids RECOMMENDATIONS: Findings of this examination were discussed with the patient as well as his family. He was advised to have a repeat colonoscopy in 5 years from now because of the prior history of colon polyps
[2021-06-30 11:39] VITALS: PULSE 90
== END 2021-06-30 12:06 | disposition home or self-care (01) ==
LOC: ORWHC2ENDO 09:21
PROVIDERS: ATTEND Internal Medicine Gastroenterology
DX: K57.30 Diverticulosis of large intestine without perforation or abscess without bleeding (principal); K64.1 Second degree hemorrhoids; I10 Essential (primary) hypertension; E78.5 Hyperlipidemia, unspecified; G47.33 Obstructive sleep apnea (adult) (pediatric); E11.9 Type 2 diabetes mellitus without complications; K21.9 Gastro-esophageal reflux disease without esophagitis; Z79.84 Long term (current) use of oral hypoglycemic drugs; Z79.4 Long term (current) use of insulin; Z79.899 Other long term (current) drug therapy; Z88.0 Allergy status to penicillin; Z88.8 Allergy status to other drugs, medicaments and biological substances; Z86.010 Personal history of colon polyps
CPT/HCPCS: 45378; J2704; J2001

== ENCOUNTER 2023-03-27 13:22 | Inpatient (IN) | payer BC ==
--- NOTE | 2023-03-27 13:53 | ED ---
Arrhythmia/Palpitations HPI - General Chief Complaint: Arrhythmia/Palpitations Stated Complaint: AFIB Time Seen by Provider: 03/27/23 13:35 Source: patient Mode of arrival: ambulatory - History of Present Illness Initial Comments: 62-year-old male presents to the emergency department from his doctor's office. States he went in there for a normal routine follow-up visit. He has been having some palpitations which started this morning. Primary care found the patient to be in a flutter. He has no history of this. He is supposed to go on Saturday to have an echo of his heart because of an EKG finding. He admits to mild shortness of breath. Mild chest pain. No history of coronary disease. Denies any thyroid issues. No other alleviating, precipitating or modifying factors - Related Data Home Medications Medication Instructions Recorded Confirmed Dulaglutide [Trulicity] 1.5 mg SQ WE 04/17/18 03/31/23 metFORMIN HCL [Glucophage] 1,000 mg PO BID 04/17/18 03/31/23 Insulin Glargine,Hum.rec.anlog 60 unit SQ HS 03/14/20 03/31/23 [Lantus Solostar Pen] Lovastatin [Mevacor] 40 mg PO HS 03/14/20 03/31/23 ARIPiprazole [Abilify] 2 mg PO DAILY 06/28/21 03/31/23 ALPRAZolam [Xanax] 1 mg PO BID PRN 03/27/23 03/31/23 Empagliflozin [Jardiance] 25 mg PO DAILY 03/27/23 03/31/23 Insulin Aspart [NovoLOG Flexpen] See Protocol SQ ACHS PRN 03/27/23 03/31/23 Pioglitazone [Actos] 30 mg PO DAILY 03/27/23 03/31/23 Protriptyline HCl [Vivactil] 10 mg PO BID 03/27/23 03/31/23 Previous Rx's Medication Instructions Recorded Apixaban [Eliquis] 5 mg PO BID #90 tab 03/29/23 Losartan [Cozaar] 50 mg PO DAILY 30 Days #30 tab 04/01/23 Metoprolol Tartrate [Lopressor] 100 mg PO BID 30 Days #60 tablet 04/01/23 Allergies Allergy/AdvReac Type Severity Reaction Status Date / Time adhesive tape Allergy Rash/Hives Verified 03/31/23 13:03 lisinopril Allergy Anaphylaxis Verified 03/27/23 15:11 Penicillins Allergy Rash/Hives Verified 03/27/23 15:11 Review of Systems ROS Statement: Those systems with pertinent positive or pertinent negative responses have been documented in the HPI. ROS Other: All systems not noted in ROS Statement are negative. Past Medical History Past Medical History: Diabetes Mellitus, GERD/Reflux, Hyperlipidemia, Hypertension, Sleep Apnea/CPAP/BIPAP Additional Past Medical History / Comment(s): SLEEP APNEA-NO CPAP History of Any Multi-Drug Resistant Organisms: None Reported Past Surgical History: Heart Catheterization Additional Past Surgical History / Comment(s): carpal tunnel, COLONOSCOPY , RI GHT AND LEFT SHOULDER MANIPULATION , Past Anesthesia/Blood Transfusion Reactions: No Reported Reaction Past Psychological History: Anxiety Smoking Status: Current every day smoker - Past Family History Mother Family Medical History: Deep Vein Thrombosis (DVT) Brother(s) Family Medical History: Cancer Additional Family Medical History / Comment(s): 2 BROTHERS WITH CANCER General Exam General appearance: alert, in no apparent distress Head exam: Present: atraumatic, normocephalic, normal inspection Eye exam: Present: normal appearance, PERRL, EOMI. Absent: scleral icterus, conjunctival injection, periorbital swelling ENT exam: Present: normal exam, mucous membranes moist Neck exam: Present: normal inspection. Absent: tenderness, meningismus, lymphadenopathy Respiratory exam: Present: normal lung sounds bilaterally. Absent: respiratory distress, wheezes, rales, rhonchi, stridor Cardiovascular Exam: Present: normal rhythm, tachycardia, normal heart sounds. Absent: systolic murmur, diastolic murmur, rubs, gallop, clicks GI/Abdominal exam: Present: soft, normal bowel sounds. Absent: distended, tenderness, guarding, rebound, rigid Extremities exam: Present: normal inspection, full ROM, normal capillary refill. Absent: tenderness, pedal edema, joint swelling, calf tenderness Back exam: Present: normal inspection Neurological exam: Present: alert, oriented X3, CN II-XII intact Psychiatric exam: Present: normal affect, normal mood Skin exam: Present: warm, dry, intact, normal color. Absent: rash Course Vital Signs 03/27/23 03/27/23 03/27/23 13:31 13:32 13:37 Temperature 97.9 F Pulse Rate 147 H 146 H Pulse Rate [ 147 H Paste Worker ] Respiratory 18 18 Rate Blood Pressure 146/101 O2 Sat by Pulse 93 L 98 Oximetry 03/27/23 03/27/23 03/27/23 13:45 14:00 14:15 Temperature Pulse Rate 144 H 146 H 147 H Pulse Rate [ Paste Worker ] Respiratory 18 16 16 Rate Blood Pressure 147/93 154/87 139/94 O2 Sat by Pulse 98 97 99 Oximetry 03/27/23 03/27/23 03/27/23 14:19 14:30 14:45 Temperature Pulse Rate 146 H 146 H 146 H Pulse Rate [ Paste Worker ] Respiratory 18 18 16 Rate Blood Pressure 139/92 132/89 123/84 O2 Sat by Pulse 98 99 97 Oximetry 03/27/23 03/27/23 03/27/23 15:00 15:15 15:30 Temperature Pulse Rate 137 H 140 H 133 H Pulse Rate [ Paste Worker ] Respiratory 18 18 16 Rate Blood Pressure 127/92 134/97 119/90 O2 Sat by Pulse Oximetry 03/27/23 03/27/23 03/27/23 15:45 16:00 16:15 Temperature Pulse Rate 129 H 140 H 118 H Pulse Rate [ Paste Worker ] Respiratory 18 16 16 Rate Blood Pressure 131/86 107/79 120/81 O2 Sat by Pulse 97 Oximetry 03/27/23 03/27/23 03/27/23 16:30 16:45 17:00 Temperature Pulse Rate 112 H 128 H 122 H Pulse Rate [ Paste Worker ] Respiratory 16 18 16 Rate Blood Pressure 122/90 104/73 127/87 O2 Sat by Pulse 97 97 98 Oximetry 03/27/23 03/27/23 03/27/23 17:15 17:30 17:45 Temperature Pulse Rate 129 H 137 H 118 H Pulse Rate [ Paste Worker ] Respiratory 18 16 18 Rate Blood Pressure 135/66 109/83 120/76 O2 Sat by Pulse 98 96 96 Oximetry 03/27/23 03/27/23 03/27/23 18:00 18:15 19:28 Temperature Pulse Rate 124 H 149 H 103 H Pulse Rate [ Paste Worker ] Respiratory 18 Rate Blood Pressure 116/77 125/87 127/77 O2 Sat by Pulse 90 L Oximetry 03/27/23 03/27/23 03/27/23 20:00 21:00 22:00 Temperature Pulse Rate 94 95 91 Pulse Rate [ Paste Worker ] Respiratory 18 19 19 Rate Blood Pressure 117/86 129/68 105/69 O2 Sat by Pulse 93 L 93 L 92 L Oximetry 03/27/23 03/28/23 03/28/23 23:00 00:00 01:00 Temperature 97.6 F Pulse Rate 101 H 96 94 Pulse Rate [ Paste Worker ] Respiratory 18 18 17 Rate Blood Pressure 108/75 143/94 131/79 O2 Sat by Pulse 92 L 97 95 Oximetry 03/28/23 03/28/23 03/28/23 02:30 04:30 06:40 Temperature 97.6 F Pulse Rate 90 92 87 Pulse Rate [ Paste Worker ] Respiratory 18 17 18 Rate Blood Pressure 130/98 132/87 144/93 O2 Sat by Pulse 95 96 97 Oximetry 03/28/23 03/28/23 10:10 13:21 Temperature Pulse Rate 95 90 Pulse Rate [ Paste Worker ] Respiratory 18 18 Rate Blood Pressure 145/91 146/87 O2 Sat by Pulse 98 Oximetry - Reevaluation(s) Reevaluation #1: Family requesting sound 03/27/23 16:51 Medical Decision Making - Medical Decision Making Was pt. sent in by a medical professional or institution (, PA, DAY CARE ASSISTANT, urgent care, hospital, or intermediate...) When possible be specific @ -Primary care office Did you speak to anyone other than the patient for history (EMS, parent, family, police, friend...)? What history was obtained from this source @ -No Did you review nursing and triage notes (agree or disagree)? Why? @ -I reviewed and agree with nursing and triage notes Were old charts reviewed (outside hosp., previous admission, EMS record, old EKG, old radiological studies, urgent care reports/EKG's, intermediate records)? Report findings @ -No old charts were reviewed Differential Diagnosis (chest pain, altered mental status, abdominal pain women, abdominal pain men, vaginal bleeding, weakness, fever, dyspnea, syncope, headache, dizziness, GI bleed, back pain, seizure, CVA, palpatations, mental h ealth, musculoskeletal)? @ -Differential Palpitations Ventricular arrhythmias, atrial arrhythmias, myocardial infarction, anemia, thyrotoxicosis, electrolyte imbalance, hypokalemia, pulmonary embolism, pulmonary disease, drugs, alcohol, anxiety, stress.... This is not meant to be an all-inclusive list. EKG interpreted by me (3pts min.). @ -Yes and demonstrates atrial fluttertachycardia with a rate of 150. QRS 124. QTc of 398. Right bundle branch block. No acute ST segment elevations Repeat EKG done at 7 PM continues to demonstrate a flutter with a rate of 115. QRS 132. QTc of 419. No acute ST segment elevations or depressions X-rays interpreted by me (1pt min.). @ -Yes and demonstrates no acute process CT interpreted by me (1pt min.). @ -None done U/S interpreted by me (1pt. min.). @ -None done What testing was considered but not performed or refused? (CT, X-rays, U/S, la bs)? Why? @ -None What meds were considered but not given or refused? Why? @ -None Did you discuss the management of the patient with other professionals (professionals i.e. , PA, DAY CARE ASSISTANT, lab, RT, psych nurse, social worker assistant, porcelain enameler, teacher, security flex utility officer, caser in)? Give summary @ -Spoke with Dr. Huff for admission Was smoking cessation discussed for >3mins.? @ -No Was critical care preformed (if so, how long)? @ -Yes, 40 minutes for new onset A-fib management Were there social determinants of health that impacted care today? How? (Homelessness, low income, unemployed, alcoholism, drug addiction, transportation, low edu. Level, literacy, decrease access to med. care, [facility], rehab)? @ -No Was there de-escalation of care discussed even if they declined (Discuss DNR or withdrawal of care, Hospice)? DNR status @ -No What co-morbidities impacted this encounter? (DM, HTN, Smoking, COPD, CAD, Cancer, CVA, ARF, Chemo, Hep., AIDS, mental health diagnosis, sleep apnea, morbid obesity)? @ -None Was patient admitted / discharged? Hospital course, mention meds given and route, prescriptions, significant lab abnormalities, going to OR and other pertinent info. @ -[hospi upon arrival patient was placed into room 17. Thorough history and physical exam was performed. Patient placed on continuous pulse ox and cardiac monitoring. Twelve-lead EKG is obtained which demonstrates onset a flutter. Laboratory studies are conducted. Chest x-ray was performed. Patient is initiated on Cardizem and heparin. His heart rate does improve. Patient will be admitted to Dr. huff who accepted the admission Undiagnosed new problem with uncertain prognosis? @ -yes Drug Therapy requiring intensive monitoring for toxicity (Heparin, Nitro, Insulin, Cardizem)? @ -Heparin, Cardizem Were any procedures done? @ -No Diagnosis/symptom? @ -New onset a flutter Acute, or Chronic, or Acute on Chronic? @ -Acute Uncomplicated (without systemic symptoms) or Complicated (systemic symptoms)? @ -Complicated Side effects of treatment? @ -No Exacerbation, Progression, or Severe Exacerbation? @ -No Poses a threat to life or bodily function? How? (Chest pain, [place], [place], pneumonia, PE, COPD, DKA, ARF, appy, cholecystitis, CVA, Diverticulitis, Homicidal, Suicidal, threat to staff... and all critical care pts) @ -Yes patient has rapid heart rate - Lab Data Result diagrams: 03/28/23 06:30 03/28/23 06:30 Lab Results 03/27/23 03/27/23 03/27/23 Range/Units 13:56 13:56 13:56 WBC 11.4 H (3.8-10.6) k/uL RBC 5.38 (4.30-5.90) m/uL Hgb 16.3 (13.0-17.5) gm/dL Hct 49.8 (39.0-53.0) % MCV 92.6 (80.0-100.0) fL MCH 30.2 (25.0-35.0) pg MCHC 32.6 (31.0-37.0) g/dL RDW 14.0 (11.5-15.5) % Plt Count 253 (150-450) k/uL MPV 7.3 Neutrophils % 59 % Lymphocytes % 26 % Monocytes % 7 % Eosinophils % 5 % Basophils % 1 % Neutrophils # 6.7 (1.3-7.7) k/uL Lymphocytes # 3.0 (1.0-4.8) k/uL Monocytes # 0.8 (0-1.0) k/uL Eosinophils # 0.5 (0-0.7) k/uL Basophils # 0.1 (0-0.2) k/uL PT 10.7 (10.0-12.5) sec INR 1.0 (<1.2) APTT 23.6 (22.0-30.0) sec D-Dimer 0.58 (<0.60) mg/L FEU Sodium 141 (137-145) mmol/L Potassium 4.6 (3.5-5.1) mmol/L Chloride 111 H (98-107) mmol/L Carbon Dioxide 22 (22-30) mmol/L Anion Gap 8 mmol/L BUN 16 (9-20) mg/dL Creatinine 0.84 (0.66-1.25) mg/dL Est GFR (CKD-EPI)AfAm >90 (>60 ml/min/1.73 sqM) Est GFR (CKD-EPI)NonAf >90 (>60 ml/min/1.73 sqM) Glucose 194 H (74-99) mg/dL Calcium 9.4 (8.4-10.2) mg/dL Magnesium 1.7 (1.6-2.3) mg/dL Total Bilirubin 0.6 (0.2-1.3) mg/dL AST 26 (17-59) U/L ALT 24 (4-49) U/L Alkaline Phosphatase 94 (38-126) U/L Troponin I (0.000-0.034) ng/mL Total Protein 7.9 (6.3-8.2) g/dL Albumin 4.1 (3.5-5.0) g/dL TSH 2.340 (0.465-4.680) mIU/L 03/27/23 Range/Units 13:56 WBC (3.8-10.6) k/uL RBC (4.30-5.90) m/uL Hgb (13.0-17.5) gm/dL Hct (39.0-53.0) % MCV (80.0-100.0) fL MCH (25.0-35.0) pg MCHC (31.0-37.0) g/dL RDW (11.5-15.5) % Plt Count (150-450) k/uL MPV Neutrophils % % Lymphocytes % % Monocytes % % Eosinophils % % Basophils % % Neutrophils # (1.3-7.7) k/uL Lymphocytes # (1.0-4.8) k/uL Monocytes # (0-1.0) k/uL Eosinophils # (0-0.7) k/uL Basophils # (0-0.2) k/uL PT (10.0-12.5) sec INR (<1.2) APTT (22.0-30.0) sec D-Dimer (<0.60) mg/L FEU Sodium (137-145) mmol/L Potassium (3.5-5.1) mmol/L Chloride (98-107) mmol/L Carbon Dioxide (22-30) mmol/L Anion Gap mmol/L BUN (9-20) mg/dL Creatinine (0.66-1.25) mg/dL Est GFR (CKD-EPI)AfAm (>60 ml/min/1.73 sqM) Est GFR (CKD-EPI)NonAf (>60 ml/min/1.73 sqM) Glucose (74-99) mg/dL Calcium (8.4-10.2) mg/dL Magnesium (1.6-2.3) mg/dL Total Bilirubin (0.2-1.3) mg/dL AST (17-59) U/L ALT (4-49) U/L Alkaline Phosphatase (38-126) U/L Troponin I <0.012 (0.000-0.034) ng/mL Total Protein (6.3-8.2) g/dL Albumin (3.5-5.0) g/dL TSH (0.465-4.680) mIU/L Disposition Clinical Impression: Atrial flutter, Palpitations Disposition: ADMITTED IP TO THIS HOSP Condition: Stable Is patient prescribed a controlled substance at d/c from ED?: No Time of Disposition: 16:51 Decision to Admit Reason: Admit from EC Decision Date: 03/27/23 Decision Time: 16:51
[2023-03-27] MEDS: SODIUM CHLORIDE 0.9% 500 ML 500 ML IV ONE (13:59)
[2023-03-27 14:03] LABS: Basophils # (A) 0.1 k/uL (0-0.2); Basophils % (A) 1 %; Eosinophils # (A) 0.5 k/uL (0-0.7); Eosinophils % (A) 5 %; HCT 49.8 % (39.0-53.0); HGB 16.3 gm/dL (13.0-17.5); Lymphocytes % (A) 26 %; MCH 30.2 pg (25.0-35.0); MCHC 32.6 g/dL (31.0-37.0); MCV 92.6 fL (80.0-100.0); Mean Platelet Volume 7.3; Monocytes # (A) 0.8 k/uL (0-1.0); Monocytes % (A) 7 %; Neutrophils # (A) 6.7 k/uL (1.3-7.7); Neutrophils % (A) 59 %; Platelet Count 253 k/uL (150-450); RBC 5.38 m/uL (4.30-5.90); WBC 11.4 k/uL (3.8-10.6)
[2023-03-27 14:18] LABS: ALT 24 U/L (4-49); AST 26 U/L (17-59); African American GFR (CKD) >90 (>60 ml/min/1.73 sqM); Albumin 4.1 g/dL (3.5-5.0); Alkaline Phosphatase 94 U/L (38-126); Anion Gap 8 mmol/L; Blood Urea Nitrogen 16 mg/dL (9-20); Calcium 9.4 mg/dL (8.4-10.2); Carbon Dioxide 22 mmol/L (22-30); Chloride 111 mmol/L (98-107); Glucose 194 mg/dL (74-99); Magnesium 1.7 mg/dL (1.6-2.3); Non-African American GFR(CKD) >90 (>60 ml/min/1.73 sqM); Potassium 4.6 mmol/L (3.5-5.1); Sodium 141 mmol/L (137-145); Total Bilirubin 0.6 mg/dL (0.2-1.3); Total Protein 7.9 g/dL (6.3-8.2)
[2023-03-27 14:22] LABS: Partial Thromboplastin Time 23.6 sec (22.0-30.0); Prothrombin Time 10.7 sec (10.0-12.5)
--- NOTE | 2023-03-27 14:32 | XR ---
EXAMINATION TYPE: XR chest 2V DATE OF EXAM: 03/27/2023 COMPARISON: NONE HISTORY: Shortness of breath TECHNIQUE: Frontal and lateral views of the chest are obtained. FINDINGS: Scattered senescent parenchymal changes noted. Hyperinflation compatible with COPD. Mild increased density right medial lung base could reflect developing infiltrate. Correlate clinical ly. Heart size is stable. Mediastinal structures are stable and grossly unremarkable. No evidence for hilar prominence. Degenerative changes dorsal spine. IMPRESSION: 1. Mild increased density right medial lung base could reflect developing infiltrate. Correlate clini tera.
[2023-03-27] MEDS: DILTIAZEM DRIP BOLUS FROM BAG 1 MG SOLN IV ONE ×2 (14:50→16:03)
[2023-03-27] MEDS: DILTIAZEM 125 MG in SODIUM CHLORIDE 0.9% 100 ML IV SCH (14:50)
[2023-03-27] MEDS: ACETAMINOPHEN TAB 500 MG TAB PO STA (15:00)
[2023-03-27] MEDS ORDERED: NALOXONE 0.4 MG/ML 1 ML VIAL IV PRN (16:54)
[2023-03-27] MEDS: MAGNESIUM SULFATE-D5W PMX 1 GM in DEXTROSE/WATER 1 100ML.BAG IVPB SCH (17:53)
[2023-03-27] MEDS: HEPARIN SOD,PORK IN 0.45% NACL 25,000 UNIT in 0.45% NACL 1 250ML.BAG IV SCH (17:58)
[2023-03-27] MEDS: HEPARIN SODIUM 1,000 UN/ML (10ML VL) IV ONE (17:59)
[2023-03-27] MEDS ORDERED: CALCIUM CARBONATE 500 MG CHEWABLE PO PRN (18:09)
[2023-03-27] MEDS ORDERED: MELATONIN 3 MG TABLET PO PRN (18:09)
[2023-03-27] MEDS ORDERED: ONDANSETRON 4 MG/2 ML VIAL IVP PRN (18:09)
[2023-03-27] MEDS: METOPROLOL TARTRATE 12.5 MG TAB PO STA (18:19)
[2023-03-27] MEDS ORDERED: DEXTROSE 50% SYRINGE 50 ML IVP PRN ×2 (18:21)
--- NOTE | 2023-03-27 18:30 | P.HPIM ---
History of Present Illness H&P Date: 03/27/23 Patient is a 62-year-old male with insulin-dependent diabetes mellitus type 2, hypertension, dyslipidemia, and GERD who presented from his primary care physician's office after being found to have tachycardia. On arrival to the ER his vital signs showed a heart rate of 147 and a blood pressure of 146/101. Laboratory analysis included CBC, PT/PTT, D-dimer, CMP, troponin, and TSH which were remarkable for white blood cell count of 11.4, glucose of 194. Troponin and TSH were normal. Magnesium was marginally low at 1.7. Initial EKG showed atrial flutter with rapid ventricular response. Chest x-ray demonstrated right midlung density. He was started on a Cardizem drip which was uptitrated to 10 mg. Arrangements were made for admission. Patient seen and examined at bedside. He was going to his family provider today due to to elevating blood pressures at home. He had been on a water pill previously but then started on Jardiance and was having increased urination and was recently taken off of his water pill. He also reports that last month he had knee arthroscopic surgery for a meniscal repair on his right knee. He states that today he could feel a butterfly or fluttering sensation in his chest. He does have a little bit of shortness of breath and chest discomfort th at started earlier today. Other than that he was asymptomatic. He states that recently when at physical therapy he had an episode of sweating and overall not feeling well. He checked his blood sugar and it was normal. He has otherwise been in his typical state of health. He denies any recent cough, cold, fever, flu, nausea, vomiting, or diarrhea. He sees Dr. Garcia for cardiology and was due to have an echocardiogram early next week. Vital signs reviewed General: nontoxic, no distress, appears at stated age, obese Derm: warm, dry Eyes: EOMI, no lid lag, anicteric sclera, pupils equal round reactive to light ENT: Nose and ears atraumatic Cardiovascular: S1S2 irreg, no murmur, trace edema right ankle Lungs: clear to auscultation bilateral, no rhonchi, no rales, no wheeze, no accessory muscle use Abdominal: soft, nontender to palpation, no guarding Ext: no gross muscle atrophy, no contractures Neuro: CN II-XII grossly intact, No focal neuro deficits Psych: Alert, oriented, appropriate affect Assessment/Plan: Atrial flutter with rapid ventricular response -Continue with Cardizem drip at 10 mg/h -Heparin drip -Add metoprolol 12.5 mg twice daily -Consult cardiology -Telemetry -Echocardiogram in a.m. Insulin-dependent diabetes mellitus -Hold metformin in case patient needs procedure with contrast dye -Levemir 50 units tonight -Farxiga 10 mg daily -Hold Actos in case patient needs n.p.o. status -Sliding scale insulin -Patient states last A1c was 7.2 Hypomagnesemia - Magnesium sulfate 2 grams IVPB - repeat Mg in AM Hypertension, accelerated on arrival -Continue to follow blood pressures. May decrease with use of metoprolol and Cardizem. Therefore we will hold losartan at this time. Dyslipidemia -Continue with lovastatin on discharge. Patients PCP is Dr. Adams, family has requested us to admit this patient. Imaging: As per HPI Data Review: As per HPI The patient is admitted with an anticipated greater than 2 midnight stay for evaluation of atrial flutter with rapid ventricular response Surrogate decision-maker: DVT prophylaxis: Heparin drip Anticipated discharge date: 24 to [address]: Home This dictation was prepared using [employer] voice recognition software. Though every attempt is made to correct errors during dictation some may still exist. Past Medical History Past Medical History: Diabetes Mellitus, GERD/Reflux, Hyperlipidemia, Hypertension, Sleep Apnea/CPAP/BIPAP Additional Past Medical History / Comment(s): SLEEP APNEA-NO CPAP, diabetic gastroparesis History of Any Multi-Drug Resistant Organisms: None Reported Past Surgical History: Heart Catheterization Additional Past Surgical History / Comment(s): carpal tunnel, COLONOSCOPY , RIGHT AND LEFT SHOULDER MANIPULATION , Past Anesthesia/Blood Transfusion Reactions: No Reported Reaction Past Psychological History: Anxiety Smoking Status: Former smoker Past Alcohol Use History: None Reported Past Drug Use History: None Reported - Past Family History Mother Family Medical History: Deep Vein Thrombosis (DVT) Brother(s) Family Medical History: Cancer Additional Family Medical History / Comment(s): 2 BROTHERS WITH CANCER Medications and Allergies Home Medications Medication Instructions Recorded Confirmed Type Dulaglutide [Trulicity] 1.5 mg SQ WE 04/17/18 03/27/23 History metFORMIN HCL [Glucophage] 1,000 mg PO BID 04/17/18 03/27/23 History Insulin Glargine,Hum.rec.anlog 60 unit SQ HS 03/14/20 03/27/23 History [Lantus Solostar] Lovastatin [Mevacor] 40 mg PO HS 03/14/20 03/27/23 History ARIPiprazole [Abilify] 2 mg PO DAILY 06/28/21 03/27/23 History ALPRAZolam [Xanax] 1 mg PO BID PRN 03/27/23 03/27/23 History Empagliflozin [Jardiance] 25 mg PO DAILY 03/27/23 03/27/23 History Insulin Aspart [NovoLOG Flexpen] See Protocol SQ ACHS PRN 03/27/23 03/27/23 History Losartan Potassium 100 mg PO DAILY 03/27/23 03/27/23 History Pioglitazone [Actos] 30 mg PO DAILY 03/27/23 03/27/23 History Protriptyline HCl [Vivactil] 10 mg PO BID 03/27/23 03/27/23 History Allergies Allergy/AdvReac Type Severity Reaction Status Date / Time lisinopril Allergy Anaphylaxis Verified 03/27/23 15:11 Penicillins Allergy Rash/Hives Verified 03/27/23 15:11 Physical Exam Osteopathic Statement: *. No significant issues noted on an osteopathic structural exam other than those noted in the History and Physical/Consult. Vitals: Vital Signs Temp Pulse Pulse Resp BP Pulse Ox 03/27/23 18:15 149 H 125/87 03/27/23 18:00 124 H 116/77 03/27/23 17:45 118 H 18 120/76 96 03/27/23 17:30 137 H 16 109/83 96 03/27/23 17:15 129 H 18 135/66 98 03/27/23 17:00 122 H 16 127/87 98 03/27/23 16:45 128 H 18 104/73 97 03/27/23 16:30 112 H 16 122/90 97 03/27/23 16:15 118 H 16 120/81 03/27/23 16:00 140 H 16 107/79 97 03/27/23 15:45 129 H 18 131/86 03/27/23 15:30 133 H 16 119/90 03/27/23 15:15 140 H 18 134/97 03/27/23 15:00 137 H 18 127/92 03/27/23 14:45 146 H 16 123/84 97 03/27/23 14:30 146 H 18 132/89 99 03/27/23 14:19 146 H 18 139/92 98 03/27/23 14:15 147 H 16 139/94 99 03/27/23 14:00 146 H 16 154/87 97 03/27/23 13:45 144 H 18 147/93 98 03/27/23 13:37 147 H 03/27/23 13:32 146 H 18 98 03/27/23 13:31 97.9 F 147 H 18 146/101 93 L Intake and Output 03/27/23 03/27/23 03/27/23 06:59 14:59 22:59 Intake Total 6 Balance 6 Intake: Intake, IV Titration 6 Amount Diltiazem 125 mg In 6 Sodium Chloride 0.9% 100 ml @ 5 MG/HR 5 mls/hr IV .Q24H [facility] Rx#:[id number] Other: Weight 122.47 kg Results CBC & Chem 7: 03/27/23 13:56 03/27/23 13:56 Labs: Abnormal Lab Results - Last 24 Hours (Table) 03/27/23 03/27/23 Range/Units 13:56 13:56 WBC 11.4 H (3.8-10.6) k/uL Chloride 111 H (98-107) mmol/L Glucose 194 H (74-99) mg/dL
[2023-03-27 19:44] LABS: Glucose,Whole Blood 197 mg/dL (70-110)
[2023-03-27] MEDS ORDERED: INSULIN DETEMIR (LEVEMIR) 100 UNIT/ML SYR SQ SCH (21:00)
[2023-03-27] MEDS ORDERED: metFORMIN 500 MG TAB PO SCH (21:00)
[2023-03-27] MEDS: ATORVASTATIN 10 MG TAB PO SCH (21:35)
[2023-03-27] MEDS: INSULIN ASPART (NovoLOG) 100 UNIT/ML VIAL SQ SCH (21:36)
[2023-03-27] MEDS: PROTRIPTYLINE HCL 5 MG PO SCH (21:37)
[2023-03-27] MEDS: INSULIN DETEMIR (LEVEMIR) 100 UNIT/ML SYR SQ SCH (23:23)
[2023-03-27] MEDS: ALPRAZolam 1 MG TAB PO PRN (23:30)
[2023-03-28] MEDS: ACETAMINOPHEN TAB 325 MG TAB PO PRN (06:37)
[2023-03-28 07:29] LABS: African American GFR (CKD) >90 (>60 ml/min/1.73 sqM); Anion Gap 8 mmol/L; Blood Urea Nitrogen 13 mg/dL (9-20); Calcium 8.9 mg/dL (8.4-10.2); Carbon Dioxide 22 mmol/L (22-30); Chloride 110 mmol/L (98-107); Glucose 102 mg/dL (74-99); Magnesium 1.8 mg/dL (1.6-2.3); Non-African American GFR(CKD) >90 (>60 ml/min/1.73 sqM); Potassium 3.9 mmol/L (3.5-5.1); Sodium 140 mmol/L (137-145)
[2023-03-28 07:37] LABS: Basophils # (A) 0.1 k/uL (0-0.2); Basophils % (A) 1 %; Eosinophils # (A) 0.5 k/uL (0-0.7); Eosinophils % (A) 5 %; HCT 47.5 % (39.0-53.0); HGB 15.8 gm/dL (13.0-17.5); Lymphocytes # (A) 2.9 k/uL (1.0-4.8); Lymphocytes % (A) 30 %; MCH 31.1 pg (25.0-35.0); MCHC 33.2 g/dL (31.0-37.0); MCV 93.6 fL (80.0-100.0); Mean Platelet Volume 7.6; Monocytes # (A) 0.7 k/uL (0-1.0); Monocytes % (A) 7 %; Neutrophils # (A) 5.4 k/uL (1.3-7.7); Neutrophils % (A) 55 %; Platelet Count 243 k/uL (150-450); RBC 5.08 m/uL (4.30-5.90); RDW 13.9 % (11.5-15.5)
[2023-03-28 07:39] LABS: WBC 9.8 k/uL (3.8-10.6)
[2023-03-28 07:43] LABS: INR 1.1 (<1.2); Prothrombin Time 11.7 sec (10.0-12.5)
[2023-03-28] MEDS: METOPROLOL TARTRATE 12.5 MG TAB PO SCH (08:22)
[2023-03-28] MEDS: HEPARIN SODIUM 1,000 UN/ML (10ML VL) IV PRN (08:28)
[2023-03-28] MEDS: ARIPiprazole 2 MG TAB PO SCH (08:57)
[2023-03-28] MEDS: DAPAGLIFLOZIN PROPANEDIOL 10 MG TABLET PO SCH (08:58)
[2023-03-28] MEDS ORDERED: PIOGLITAZONE 30 MG TAB PO SCH (09:00)
--- NOTE | 2023-03-28 11:53 | CA ---
Transthoracic Echo Report Name: Nathaniel Alberto Age: 62 Gender: M : 1960 Exam Date: 03/28/2023 10:20 Exam Location: [facility] Ht (in): 72 Wt (lb): 270 Ordering Physician: Gabriella Friedman DO Attending/Referring Phys: Suresh Garcia MD ([id number]) Shank Rander Isaak Pascual RD Procedure CPT: Indications: a fib Cardiac Hx: Technical Quality: Technically difficult study Contrast 1: Definity Total Dose (mL): 2 Contrast 2: Total Dose (mL): MEASUREMENTS (Male / Female) Normal Values 2D ECHO LV Diastolic Diameter PLAX 5.0 cm 4.2 - 5.9 / 3.9 - 5.3 cm LV Systolic Diameter PLAX 3.6 cm IVS Diastolic Thickness 1.1 cm 0.6 - 1.0 / 0.6 - 0.9 cm LVPW Diastolic Thickness 1.1 cm 0.6 - 1.0 / 0.6 - 0.9 cm LV Relative Wall Thickness 0.4 RV Internal Dim ED PLAX 2.7 cm LVOT Diameter 1.9 cm Aortic Root Diameter 2.9 cm LA Systolic Diameter LX 1.8 cm 3.0 - 4.0 / 2.7 - 3.8 cm LV Diastolic Volume MOD BP 41.1 cm??? 67 - 155 / 56 - 104 cm??? LV Systolic Volume MOD BP 16.5 cm??? 22 - 58 / 19 - 49 cm??? LV Ejection Fraction MOD BP 59.8 % >= 55 % LV Cardiac Index MOD BP 938.9 cm???/min???m??? LV Diastolic Volume MOD 4C 51.0 cm??? LV Systolic Volume MOD 4C 21.1 cm??? LV Ejection Fraction MOD 4C 58.6 % LV Cardiac Index MOD 4C 1142.1 cm???/min???m??? LV Diastolic Length 4C 7.7 cm LV Systolic Length 4C 7.3 cm LV Diastolic Volume MOD 2C 33.0 cm??? LV Systolic Volume MOD 2C 12.7 cm??? LV Ejection Fraction MOD 2C 61.5 % LV Cardiac Index MOD 2C 776.0 cm???/min???m??? LV Diastolic Length 2C 7.7 cm LV Systolic Length 2C 7.1 cm LA Volume 41.8 cm??? 18 - 58 / 22 - 52 cm??? LA Volume Index 16.5 cm???/m??? 16 - 28 cm???/m??? DOPPLER AV Peak Velocity 171.3 cm/s AV Peak Gradient 11.7 mmHg AV Mean Velocity 128.3 cm/s AV Mean Gradient 7.3 mmHg AV Velocity Time Integral 31.1 cm LVOT Peak Velocity 101.4 cm/s LVOT Peak Gradient 4.1 mmHg LVOT Velocity Time Integral 18.7 cm LVOT Stroke Volume 51.2 cm??? LVOT Stroke Volume Index 21.2 ml/m??? LVOT Cardiac Index 1957.0 cm???/min???m??? AV Area Cont Eq vti 1.6 cm??? AV Area Cont Eq pk 1.6 cm??? MV Peak Velocity 115.0 cm/s MV Peak Gradient 5.3 mmHg MV Mean Velocity 46.1 cm/s MV Mean Gradient 1.2 mmHg MV Velocity Time Integral 28.4 cm PV Peak Velocity 77.5 cm/s PV Peak Gradient 2.4 mmHg FINDINGS Left Ventricle Normal LV size and wall thickness. Left ventricular ejection fraction is estimated at 55-60 %. Right Ventricle Normal right ventricular size. Right Atrium Normal right atrial size. Left Atrium Normal left atrial size. Mitral Valve Structurally normal mitral valve. No mitral stenosis. Mild mitral regurgitation. Aortic Valve Aortic valve not well visualized. No aortic stenosis. No aortic regurgitation. Tricuspid Valve Tricuspid valve not well visualized. No tricuspid regurgitation. Pulmonic Valve Pulmonic valve not well visualized. No pulmonic regurgitation. Pericardium Normal pericardium. Aorta Normal size aortic root. CONCLUSIONS Technically difficult study. Poor quality study with limited views LVEF estimated at 55%. No obvious regional wall motion abnormality, however the sensitivity is limited Mild MR Dilated IVC less than 50% respiratory collapse Previewed by: Dr Suresh Garcia (Electronically Signed) Final Date: 28 March 2023 11:53
[2023-03-28] MEDS: HYDROcodone/APAP 5-325MG 1 EACH TAB PO PRN (11:58)
--- NOTE | 2023-03-28 14:35 | P.PN ---
Subjective Progress Note Date: 03/28/23 Hospital Course: 62-year-old male with history of insulin-dependent diabetes, hypertension, dyslipidemia, GERD presenting with tachycardia. On arrival to the ER his vital signs showed a heart rate of 147 and a blood pressure of 146/101. Laboratory analysis included CBC, PT/PTT, D-dimer, CMP, troponin, and TSH which were remarkable for white blood cell count of 11.4, glucose of 194. Troponin and TSH were normal. Magnesium was marginally low at 1.7. Initial EKG showed atrial flutter with rapid ventricular response. Chest x-ray demonstrated right midlung density. He was started on a Cardizem drip which was uptitrated to 10 mg. Arrangements were made for admission. Cardiology consulted. Subjective: Patient seen and examined at bedside. Denies any respiratory complaints. Denies any palpitations. Still has some lightheadedness when getting out of the bed. However denies any chest pain, nausea, vomiting, urinary or bowel complaints. Pertinent positives and negatives as discussed above, a complete review of systems was performed and all other systems are negative. Vitals Signs Reviewed. General: Nontoxic, no distress, appears at stated age Derm: Warm, dry Head: Atraumatic, normocephalic, symmetric Eyes: EOMI, no lid lag, anicteric sclera Mouth: No lip lesion, mucus membranes moist Cardiovascular: S1S2 irregular, no murmur Lungs: CTA bilateral, no rhonchi, no rales, no accessory muscle use Abdominal: Soft, nontender to palpation, no guarding, no appreciable organomegal y Ext: No gross muscle atrophy, no edema, no contractures Neuro: CN II-XI grossly intact, no focal neuro deficits Psych: Alert, oriented, appropriate affect Data Reviewed Today: Pertinent Labs: WBC 9.8, hemoglobin 15.8, potassium 3.9, creatinine 0.77, magnesium 1.8, A1c 7.2 Imaging: EKG independently interpreted from this morning, shows atrial fibrillation, rate controlled, right bundle branch block. Echocardiogram report reviewed, shows LVEF of 55% Assessment and Plan: Atrial flutter/fibrillation with rapid ventricular response, now rate controlled -Continue with Cardizem drip at 10 mg/h -Heparin drip, monitor APTT, monitor for bleeding -Patient was started on metoprolol 12.5 twice daily -Cardiology consulted, pending recommendations -Telemetry Insulin-dependent diabetes mellitus, A1c 7.2 -Hold metformin and Actos -Levemir 50 units nightly -Farxiga 10 mg daily -Sliding scale insulin, monitor for hypoglycemia Hypomagnesemia, resolved Hypertension -Restarted losartan 100 mg daily Dyslipidemia -Continue with lovastatin on discharge. Psychiatric disorder, continue home medications DVT ppx: Heparin drip Code status: Full code Anticipated discharge place: Pending clinical course Anticipated discharge time: Pending clinical course Objective - Vital Signs Vital signs: Vital Signs Temp 97.6 F 03/28/23 04:30 Pulse 90 03/28/23 13:21 Resp 18 03/28/23 13:21 BP 146/87 03/28/23 13:21 Pulse Ox 98 03/28/23 10:10 FiO2 Intake & Output 03/27/23 03/28/23 03/28/23 18:59 06:59 18:59 Intake Total 6 116.5 241.087 Balance 6 116.5 241.087 Weight 122.47 kg Intake: Intake, IV Titration 6 116.5 241.087 Amount Diltiazem 125 mg In 6 116.5 96.5 Sodium Chloride 0.9% 100 ml @ 5 MG/HR 5 mls/hr IV .Q24H [facility] Rx#:[id number] Heparin Sod,Pork in 0.45% 144.587 NaCl 25,000 unit In 0.45 % NaCl 1 250ml.bag @ 8.17 UNITS/KG/HR 10.006 mls/ hr IV .Q24H [facility] Rx#: [id number] - Labs CBC & Chem 7: 03/28/23 06:30 03/28/23 06:30 Labs: Abnormal Lab Results - Last 24 Hours (Table) 03/27/23 03/27/23 03/28/23 Range/Units 19:42 20:08 06:30 APTT 30.7 H (22.0-30.0) sec Chloride (98-107) mmol/L Glucose (74-99) mg/dL POC Glucose (mg/dL) 197 H (70-110) mg/dL Hemoglobin A1c 7.2 H (<=6.0) % 03/28/23 Range/Units 06:30 APTT (22.0-30.0) sec Chloride 110 H (98-107) mmol/L Glucose 102 H (74-99) mg/dL POC Glucose (mg/dL) (70-110) mg/dL Hemoglobin A1c (<=6.0) %
--- NOTE | 2023-03-28 14:42 | P.CRDCN ---
History of Present Illness Consult date: 03/28/23 Consult reason: atrial fibrillation, shortness of breath Chief complaint: dizziness, palpitations, sob History of present illness: History of present illness: Patient is a pleasant 62-year-old male with significant past medical history of diabetes type 2, hypertension, hyperlipidemia, obstructive sleep apnea unable to tolerate CPAP in the past, and GERD who presented to the emergency department after being found to be in A-fib at his PCP office. He does follow with Dr. Garcia in the office. He reports that he was at his PCPs office for blood pressure management when he was noted to have a fast heart rate, EKG done showed atrial fibrillation and he was referred to the emergency room. He did report feeling a fluttering sensation and some slight chest pain. He also had some shortness of breath and dizziness. He was started on a Cardizem drip as well as a heparin drip. He remains in A-fib however heart rates are better controlled in the 90s this morning. Echocardiogram today shows EF 55-60%, poor quality with limited views, mild mitral regurgitation. EKG shows atrial fibrillation with right bundle branch block, 90 bpm. Troponin was negative x 3, TSH normal, A1c 7.7, creatinine 0.77. He denies any history of VA, stroke, stents, or blood clots. He did have a prior heart cath in 2017 that showed normal coronary arteries. He did have recent knee surgery in January 2023 for which he had cardiac clearance by Dr. Garcia. He is still feeling shortness of breath and dizziness with very slight chest pain today. He denies any history of stroke, VA, blood clots. REVIEW OF SYSTEMS: No fever or chills. No cough or expectoration. No diaphoresis. Patient denies headache, blurred vision, double vision. Patient denies any stomach discomfort. No nausea, vomiting. No hematochezia. No hematemesis. Denies any black stools or blood in his stools. Denies dysuria or hematuria. No muscle weakness or numbness. No chest pain or pressure. Reports shortness of breath, palpitations, dizziness. PHYSICAL EXAMINATION: This is a 62-year-old male in no apparent distress at the time of my examination. HEENT: Head is atraumatic, normocephalic. Pupils are equal, round. Sclerae anicteric. Conjunctivae are clear. Mucous membranes of the mouth are moist. Neck is supple. There is no jugular venous distention. No carotid bruit is heard. CHEST EXAMINATION: Lungs are clear to auscultation. No chest wall tenderness is noted on palpation or with deep breathing. HEART EXAMINATION: Heart irregularly irregular. S1, S2 heard. No murmurs, gallops or rub. ABDOMEN: Soft, nontender. Bowel sounds are heard. EXTREMITIES: 2+ peripheral pulses with no evidence of peripheral edema and no calf tenderness noted. NEUROLOGIC EXAMINATION: Patient is awake, alert and oriented x3. IMPRESSION AND PLAN: New onset atrial fibrillation, paroxysmal Hypertension Hyperlipidemia Diabetes type 2 Dyspnea Dizziness PLAN: Echocardiogram shows preserved EF, TSH is normal. Heart rates are better controlled however he remains in A-fib and appears to be fairly symptomatic with shortness of breath and dizziness. [id number] score is 2 (HTN and DM), recommend anticoagulation for stroke prevention. Continue heparin drip for now and plan to transition to NOAC tomorrow. Patient did eat lunch today. Discussed option for cardioversion tomorrow morning, patient is agreeable. Will start flecainide 50 mg twice daily and transition to Cardizem 60 mg 3 times daily. N.p.o. after midnight for cardioversion. Will follow. I am dictating on behalf of Dr. John Bhandari's history/physical and assessment/plan. Past Medical History Past Medical History: Diabetes Mellitus, GERD/Reflux, Hyperlipidemia, Hypertension, Sleep Apnea/CPAP/BIPAP Additional Past Medical History / Comment(s): SLEEP APNEA-NO CPAP, diabetic gastroparesis History of Any Multi-Drug Resistant Organisms: None Reported Past Surgical History: Heart Catheterization Additional Past Surgical History / Comment(s): carpal tunnel, COLONOSCOPY , RIGHT AND LEFT SHOULDER MANIPULATION , Past Anesthesia/Blood Transfusion Reactions: No Reported Reaction Past Psychological History: Anxiety Smoking Status: Former smoker Past Alcohol Use History: None Reported Past Drug Use History: None Reported - Past Family History Mother Family Medical History: Deep Vein Thrombosis (DVT) Brother(s) Family Medical History: Cancer Additional Family Medical History / Comment(s): 2 BROTHERS WITH CANCER Medications and Allergies Home Medications Medication Instructions Recorded Confirmed Type Dulaglutide [Trulicity] 1.5 mg SQ WE 04/17/18 03/27/23 History metFORMIN HCL [Glucophage] 1,000 mg PO BID 04/17/18 03/27/23 History Insulin Glargine,Hum.rec.anlog 60 unit SQ HS 03/14/20 03/27/23 History [Lantus Solostar] Lovastatin [Mevacor] 40 mg PO HS 03/14/20 03/27/23 History ARIPiprazole [Abilify] 2 mg PO DAILY 06/28/21 03/27/23 History ALPRAZolam [Xanax] 1 mg PO BID PRN 03/27/23 03/27/23 History Empagliflozin [Jardiance] 25 mg PO DAILY 03/27/23 03/27/23 History Insulin Aspart [NovoLOG Flexpen] See Protocol SQ ACHS PRN 03/27/23 03/27/23 History Losartan Potassium 100 mg PO DAILY 03/27/23 03/27/23 History Pioglitazone [Actos] 30 mg PO DAILY 03/27/23 03/27/23 History Protriptyline HCl [Vivactil] 10 mg PO BID 03/27/23 03/27/23 History Allergies Allergy/AdvReac Type Severity Reaction Status Date / Time lisinopril Allergy Anaphylaxis Verified 03/27/23 15:11 Penicillins Allergy Rash/Hives Verified 03/27/23 15:11 Physical Exam Vitals: Vital Signs Temp Pulse Resp BP Pulse Ox 03/28/23 13:21 90 18 146/87 03/28/23 10:10 95 18 145/91 98 03/28/23 06:40 87 18 144/93 97 03/28/23 04:30 97.6 F 92 17 132/87 96 03/28/23 02:30 90 18 130/98 95 03/28/23 01:00 94 17 131/79 95 03/28/23 00:00 97.6 F 96 18 143/94 97 03/27/23 23:00 101 H 18 108/75 92 L 03/27/23 22:00 91 19 105/69 92 L 03/27/23 21:00 95 19 129/68 93 L 03/27/23 20:00 94 18 117/86 93 L 03/27/23 19:28 103 H 18 127/77 90 L 03/27/23 18:15 149 H 125/87 03/27/23 18:00 124 H 116/77 03/27/23 17:45 118 H 18 120/76 96 03/27/23 17:30 137 H 16 109/83 96 03/27/23 17:15 129 H 18 135/66 98 03/27/23 17:00 122 H 16 127/87 98 03/27/23 16:45 128 H 18 104/73 97 03/27/23 16:30 112 H 16 122/90 97 03/27/23 16:15 118 H 16 120/81 03/27/23 16:00 140 H 16 107/79 97 03/27/23 15:45 129 H 18 131/86 03/27/23 15:30 133 H 16 119/90 03/27/23 15:15 140 H 18 134/97 03/27/23 15:00 137 H 18 127/92 03/27/23 14:45 146 H 16 123/84 97 03/27/23 14:30 146 H 18 132/89 99 03/27/23 14:19 146 H 18 139/92 98 03/27/23 14:15 147 H 16 139/94 99 03/27/23 14:00 146 H 16 154/87 97 Intake and Output 03/27/23 03/28/23 03/28/23 22:59 06:59 14:59 Intake Total 6 116.5 241.087 Balance 6 116.5 241.087 Intake: Intake, IV Titration 6 116.5 241.087 Amount Diltiazem 125 mg In 6 116.5 96.5 Sodium Chloride 0.9% 100 ml @ 5 MG/HR 5 mls/hr IV .Q24H [facility] Rx#:[id number] Heparin Sod,Pork in 0.45% 144.587 NaCl 25,000 unit In 0.45 % NaCl 1 250ml.bag @ 8.17 UNITS/KG/HR 10.006 mls/ hr IV .Q24H [facility] Rx#: [id number] Results 03/28/23 06:30 03/28/23 06:30 Cardiac Enzymes 03/27/23 03/27/23 03/27/23 Range/Units 13:56 13:56 19:27 AST 26 (17-59) U/L Troponin I <0.012 <0.012 (0.000-0.034) ng/mL 03/27/23 Range/Units 20:08 AST (17-59) U/L Troponin I <0.012 (0.000-0.034) ng/mL Coagulation 03/27/23 03/27/23 03/28/23 Range/Units 13:56 20:08 06:30 PT 10.7 11.7 (10.0-12.5) sec APTT 23.6 30.7 H (22.0-30.0) sec 03/28/23 Range/Units 06:30 PT (10.0-12.5) sec APTT 28.6 (22.0-30.0) sec CBC 03/27/23 03/28/23 Range/Units 13:56 06:30 WBC 11.4 H 9.8 (3.8-10.6) k/uL RBC 5.38 5.08 (4.30-5.90) m/uL Hgb 16.3 15.8 (13.0-17.5) gm/dL Hct 49.8 47.5 (39.0-53.0) % Plt Count 253 243 (150-450) k/uL Comprehensive Metabolic Panel 03/27/23 03/28/23 Range/Units 13:56 06:30 Sodium 141 140 (137-145) mmol/L Potassium 4.6 3.9 (3.5-5.1) mmol/L Chloride 111 H 110 H (98-107) mmol/L Carbon Dioxide 22 22 (22-30) mmol/L BUN 16 13 (9-20) mg/dL Creatinine 0.84 0.77 (0.66-1.25) mg/dL Glucose 194 H 102 H (74-99) mg/dL Calcium 9.4 8.9 (8.4-10.2) mg/dL AST 26 (17-59) U/L ALT 24 (4-49) U/L Alkaline Phosphatase 94 (38-126) U/L Total Protein 7.9 (6.3-8.2) g/dL Albumin 4.1 (3.5-5.0) g/dL Current Medications Generic Name Dose Route Start Last Admin Trade Name Freq PRN Reason Stop Dose Admin Acetaminophen 650 mg 03/27/23 18:09 03/28/23 06:37 Acetaminophen Tab 325 Mg Tab PO 650 mg Q6HR PRN Administration Mild Pain or Fever > 100.5 Hydrocodone Bitart/Acetaminophen 1 each 03/27/23 18:09 03/28/23 11:58 Hydrocodone/Apap 5-325mg 1 Each Tab PO 1 each Q4HR PRN Administration Moderate Pain (Scale 4 to 6) Alprazolam 1 mg 03/27/23 16:57 03/27/23 23:30 Alprazolam 1 Mg Tab PO 1 mg BID PRN Administration Anxiety Aripiprazole 2 mg 03/28/23 09:00 03/28/23 08:57 Aripiprazole 2 Mg Tab PO 2 mg DAILY [facility] Administration Atorvastatin Calcium 10 mg 03/27/23 21:00 03/27/23 21:35 Atorvastatin 10 Mg Tab PO 10 mg HS [facility] Administration Calcium Carbonate/Glycine 1,000 mg 03/27/23 18:09 Calcium Carbonate 500 Mg Chewable PO Q4HR PRN Dyspepsia Dapagliflozin 10 mg 03/28/23 09:00 03/28/23 08:58 Dapagliflozin Propanediol 10 Mg Tablet PO 10 mg DAILY [facility] Administration Dextrose/Water 25 ml 03/27/23 18:21 Dextrose 50% Syringe 50 Ml IVP PER PROTOCOL PRN Hypoglycemia Protocol Dextrose/Water 50 ml 03/27/23 18:21 Dextrose 50% Syringe 50 Ml IVP PER PROTOCOL PRN Hypoglycemia Protocol Heparin Sodium (Porcine) 0 unit 03/27/23 17:07 03/28/23 08:28 Heparin Sodium 1,000 Un/Ml (10ml Vl) IV 4,000 unit PER PROTOCOL PRN Administration Low PTT Protocol Diltiazem HCl 125 mg/ Sodium 125 mls @ 10 mls/hr 03/27/23 14:45 03/28/23 13:20 Chloride IV 10 mg/hr .[id number] [facility] 10 mls/hr Administration 10 MG/HR Heparin Sodium/Sodium Chloride 250 mls @ 10.006 mls/hr 03/27/23 17:15 03/28/23 08:25 25,000 unit/ Sodium Chloride IV 11.17 units/kg/hr .Q24H [facility] 13.68 mls/hr Titration Protocol 8.17 UNITS/KG/HR Insulin Aspart 0 unit 03/27/23 21:00 03/28/23 11:54 Insulin Aspart (Novolog) 100 Unit/Ml Vial SQ Not Given ACHS [facility] Protocol Insulin Detemir 50 unit 03/27/23 21:00 03/27/23 23:23 Insulin Detemir (Levemir) 100 Unit/Ml Syr SQ 50 unit HS [facility] Administration Melatonin 3 mg 03/27/23 18:09 Melatonin 3 Mg Tablet PO HS PRN Insomnia Metoprolol Tartrate 12.5 mg 03/28/23 09:00 03/28/23 08:22 Metoprolol Tartrate 12.5 Mg Tab PO 12.5 mg BID [facility] Administration Naloxone HCl 0.2 mg 03/27/23 16:54 Naloxone 0.4 Mg/Ml 1 Ml Vial IV Q2M PRN Opioid Reversal Protriptyline Hcl [ 10 mg 03/27/23 21:00 03/28/23 08:22 Vivactil] 5 Mg PO 10 mg Tablet BID [facility] Administration Ondansetron HCl 4 mg 03/27/23 18:09 Ondansetron 4 Mg/2 Ml Vial IVP Q8HR PRN Nausea And Vomiting Intake and Output 03/27/23 03/28/23 03/28/23 22:59 06:59 14:59 Intake Total 6 116.5 241.087 Balance 6 116.5 241.087 Intake: Intake, IV Titration 6 116.5 241.087 Amount Diltiazem 125 mg In 6 116.5 96.5 Sodium Chloride 0.9% 100 ml @ 5 MG/HR 5 mls/hr IV .Q24H [facility] Rx#:[id number] Heparin Sod,Pork in 0.45% 144.587 NaCl 25,000 unit In 0.45 % NaCl 1 250ml.bag @ 8.17 UNITS/KG/HR 10.006 mls/ hr IV .Q24H [facility] Rx#: [id number] 03/28/23 06:30 03/28/23 06:30
[2023-03-28] MEDS: DILTIAZEM ORAL 60 MG TAB PO SCH (16:17)
[2023-03-28] MEDS: FLECAINIDE 50 MG TAB PO SCH (16:17)
[2023-03-28 16:38] LABS: Glucose,Whole Blood 108 mg/dL (70-110)
[2023-03-28 20:09] LABS: Glucose,Whole Blood 98 mg/dL (70-110)
[2023-03-29 06:12] LABS: Glucose,Whole Blood 89 mg/dL (70-110)
[2023-03-29] MEDS: PROTRIPTYLINE HCL 5 MG PO SCH (08:46)
[2023-03-29] MEDS: LOSARTAN 50 MG TAB PO SCH (08:52)
[2023-03-29 08:59] LABS: Glucose,Whole Blood 77 mg/dL (70-110)
[2023-03-29 11:19] LABS: Glucose,Whole Blood 82 mg/dL (70-110)
--- NOTE | 2023-03-29 12:24 | P.PN ---
Subjective Progress Note Date: 03/29/23 Hospital Course: 62-year-old male with history of insulin-dependent diabetes, hypertension, dyslipidemia, GERD presenting with tachycardia. On arrival to the ER his vital signs showed a heart rate of 147 and a blood pressure of 146/101. Laboratory analysis included CBC, PT/PTT, D-dimer, CMP, troponin, and TSH which were remarkable for white blood cell count of 11.4, glucose of 194. Troponin and TSH were normal. Magnesium was marginally low at 1.7. Initial EKG showed atrial flutter with rapid ventricular response. Chest x-ray demonstrated right midlung density. He was started on a Cardizem drip which was uptitrated to 10 mg. Arrangements were made for admission. Cardiology consulted. Subjective: Patient seen and examined at bedside. Denies any respiratory complaints. Denies any palpitations. Still has some lightheadedness. However denies any chest pain, nausea, vomiting, urinary or bowel complaints. Pertinent positives and negatives as discussed above, a complete review of sy stems was performed and all other systems are negative. Vitals Signs Reviewed. General: Nontoxic, no distress, appears at stated age Derm: Warm, dry Head: Atraumatic, normocephalic, symmetric Eyes: EOMI, no lid lag, anicteric sclera Mouth: No lip lesion, mucus membranes moist Cardiovascular: S1S2 irregular, no murmur Lungs: CTA bilateral, no rhonchi, no rales, no accessory muscle use Abdominal: Soft, nontender to palpation, no guarding, no appreciable organomegaly Ext: No gross muscle atrophy, no edema, no contractures Neuro: CN II-XI grossly intact, no focal neuro deficits Psych: Alert, oriented, appropriate affect Data Reviewed Today: Pertinent Labs: APTT 48.3, glucose range between 77-89 Imaging: Echocardiogram report reviewed, shows LVEF of 55%. Assessment and Plan: Atrial flutter/fibrillation with rapid ventricular response, now rate controlled -Patient now on oral Cardizem 60 mg 3 times daily, flecainide 50 mg twice daily -Heparin drip, monitor APTT, monitor for bleeding, will likely convert to Eliquis subsequently after cardioversion -Cardiology consulted, patient likely to get CASSIDY with cardioversion today -Telemetry continue Insulin-dependent diabetes mellitus, A1c 7.2 -Hold metformin and Actos -Levemir 50 units nightly -Farxiga 10 mg daily -Sliding scale insulin, monitor for hypoglycemia Hypomagnesemia, resolved Hypertension -Continue losartan 100 mg daily Dyslipidemia -Continu atorvastatin 10 Psychiatric disorder, continue home medications DVT ppx: Heparin drip Code status: Full code Anticipated discharge place: Pending clinical course Anticipated discharge time: Pending clinical course Objective - Vital Signs Vital signs: Vital Signs Temp 97.9 F 03/29/23 12:13 Pulse 99 03/29/23 12:13 Resp 18 03/29/23 12:13 BP 161/92 03/29/23 12:13 Pulse Ox 93 L 03/29/23 12:13 FiO2 Intake & Output 03/28/23 03/29/23 03/29/23 18:59 06:59 18:59 Intake Total 463.967 215.591 30 Balance 463.967 215.591 30 Weight 122.47 kg Intake: IV 30 Invasive Line 1 10 Invasive Line 2 10 Invasive Line 3 10 Intake, IV Titration 345.967 215.591 Amount Diltiazem 125 mg In 96.5 Sodium Chloride 0.9% 100 ml @ 5 MG/HR 5 mls/hr IV .Q24H [facility] Rx#:[id number] Heparin Sod,Pork in 0.45% 249.467 215.591 NaCl 25,000 unit In 0.45 % NaCl 1 250ml.bag @ 8.17 UNITS/KG/HR 10.006 mls/ hr IV .Q24H [facility] Rx#: [id number] Oral 118 Other: Voiding Method Toilet - Labs CBC & Chem 7: 03/28/23 06:30 03/28/23 06:30 Labs: Abnormal Lab Results - Last 24 Hours (Table) 03/28/23 03/29/23 03/29/23 Range/Units 15:10 01:01 09:10 APTT 39.6 H 46.4 H 48.3 H (22.0-30.0) sec
[2023-03-29 12:41] VITALS: TEMP 97.9
[2023-03-29] MEDS: LACTATED RINGERS 1,000 ML IV ONE (13:08)
[2023-03-29] MEDS ORDERED: PROPOFOL 10 MG/ML 20 ML VIAL IV ONE (13:11)
[2023-03-29] MEDS ORDERED: LIDOCAINE 1% INJ 10MG/ML (20 ML MDV) ONE (13:11)
[2023-03-29 14:08] LABS: Glucose,Whole Blood 74 mg/dL (70-110)
[2023-03-29] MEDS: APIXABAN 5 MG TAB PO SCH (14:26)
[2023-03-29] MEDS: FUROSEMIDE 10 MG/ML 4 ML VIAL IV STA (14:26)
--- NOTE | 2023-03-29 15:03 | P.PN ---
Subjective Progress Note Date: 03/29/23 Consult reason: atrial fibrillation, shortness of breath Chief complaint: dizziness, palpitations, sob History of present illness: History of present illness: Patient is a pleasant 62-year-old male with significant past medical history of diabetes type 2, hypertension, hyperlipidemia, obstructive sleep apnea unable to tolerate CPAP in the past, and GERD who presented to the emergency department after being found to be in A-fib at his PCP office. He does follow with Dr. Garcia in the office. He reports that he was at his PCPs office for blood pressure management when he was noted to have a fast heart rate, EKG done showed atrial fibrillation and he was referred to the emergency room. He did report feeling a fluttering sensation and some slight chest pain. He also had some shortness of breath and dizziness. He was started on a Cardizem drip as well as a heparin drip. He remains in A-fib however heart rates are better controlled in the 90s this morning. Echocardiogram today shows EF 55-60%, poor quality with limited views, mild mitral regurgitation. EKG shows atrial fibrillation with right bundle branch block, 90 bpm. Troponin was negative x 3, TSH normal, A1c 7.7, creatinine 0.77. He denies any history of MS, stroke, stents, or blood clots. He did have a prior heart cath in 2016 that showed normal coronary arteries. He did have recent knee surgery in January 2023 for which he had cardiac clearance by Dr. Garcia. He is still feeling shortness of breath and dizziness with very slight chest pain today. He denies any history of stroke, MS, blood clots. 2/2 Patient states that he feels worse today from yesterday. He has been started on flecainide and Cardizem CD and also maintained on Eliquis. Heart rate is in the 80s, blood pressure 143/75, pulse ox 91% on room air. *Patient underwent CASSIDY and cardioversion successfully with Dr. Garcia today. He has started the patient on Eliquis, Cardizem and Lasix for 4 days. PHYSICAL EXAMINATION: This is a 62-year-old male in no apparent distress at the time of my examination. HEENT: Head is atraumatic, normocephalic. Pupils are equal, round. Sclerae anicteric. Conjunctivae are clear. Mucous membranes of the mouth are moist. Neck is supple. There is no jugular venous distention. No carotid bruit is heard. CHEST EXAMINATION: Lungs are clear to auscultation. No chest wall tenderness is noted on palpation or with deep breathing. HEART EXAMINATION: Heart irregularly irregular. S1, S2 heard. No murmurs, gallops or rub. ABDOMEN: Soft, nontender. Bowel sounds are heard. EXTREMITIES: 2+ peripheral pulses with no evidence of peripheral edema and no calf tenderness noted. NEUROLOGIC EXAMINATION: Patient is awake, alert and oriented x3. IMPRESSION AND PLAN: New onset atrial fibrillation, paroxysmal, status post cardioversion Hypertension Hyperlipidemia Diabetes type 2 Dyspnea Dizziness PLAN: Patient to be maintained on Eliquis 5 mg twice daily, Cardizem CD 120 mg daily, Lasix 40 mg daily for 4 days Discontinue Flecainide. Plan for outpatient sleep referral Patient to follow-up with Dr. Garcia in 1 to 2 weeks. Patient is cleared for discharge. I am dictating on behalf of Dr. John Bhandari's history/physical and assessment/plan. Objective - Vital Signs Vital signs: Vital Signs Temp 97.6 F 03/29/23 07:31 Pulse 88 03/29/23 07:31 Resp 18 03/29/23 07:31 BP 124/75 03/29/23 07:31 Pulse Ox 95 03/29/23 07:31 FiO2 Intake & Output 03/28/23 03/29/23 03/29/23 18:59 06:59 18:59 Intake Total 463.967 215.591 30 Balance 463.967 215.591 30 Weight 122.47 kg Intake: IV 30 Invasive Line 1 10 Invasive Line 2 10 Invasive Line 3 10 Intake, IV Titration 345.967 215.591 Amount Diltiazem 125 mg In 96.5 Sodium Chloride 0.9% 100 ml @ 5 MG/HR 5 mls/hr IV .Q24H [facility] Rx#:[id number] Heparin Sod,Pork in 0.45% 249.467 215.591 NaCl 25,000 unit In 0.45 % NaCl 1 250ml.bag @ 8.17 UNITS/KG/HR 10.006 mls/ hr IV .Q24H [facility] Rx#: [id number] Oral 118 Other: Voiding Method Toilet - Labs CBC & Chem 7: 03/28/23 06:30 03/28/23 06:30 Labs: Abnormal Lab Results - Last 24 Hours (Table) 03/28/23 03/29/23 03/29/23 Range/Units 15:10 01:01 09:10 APTT 39.6 H 46.4 H 48.3 H (22.0-30.0) sec
[2023-03-29 16:04] LABS: Glucose,Whole Blood 177 mg/dL (70-110)
--- NOTE | 2023-03-29 16:11 | P.DS ---
Providers Date of admission: 03/27/23 16:55 Expected date of discharge: 03/29/23 Attending physician: Gabriella Friedman DO Consults: 03/27/23 16:54 Consult Physician Urgent Consulting Provider: [facility] Consult Reason/Comments: new onset aflutter Do you want consulting provider notified?: Yes Primary care physician: [facility] Course: Discharge Diagnosis: New onset paroxysmal atrial fibrillation Insulin-dependent diabetes mellitus, A1c 7.2 Hypomagnesemia Hypertension Dyslipidemia Hospital Course: 62-year-old male with history of insulin-dependent diabetes, hypertension, dyslipidemia, GERD presenting with tachycardia. On arrival to the ER his vital signs showed a heart rate of 147 and a blood pressure of 146/101. Laboratory analysis included CBC, PT/PTT, D-dimer, CMP, troponin, and TSH which were remarkable for white blood cell count of 11.4, glucose of 194. Troponin and TSH were normal. Magnesium was marginally low at 1.7. Initial EKG showed atrial flutter with rapid ventricular response. Chest x-ray demonstrated right midlung density. He was started on a Cardizem drip which was uptitrated to 10 mg. Arrangements were made for admission. Cardiology consulted. He was subsequently started on flecainide and oral Cardizem. IV Cardizem was discontinued. Echocardiogram showed LVEF 55%, mild MR, dilated IVC rate was controlled. He underwent successful CASSIDY with cardioversion. Transitioned from heparin drip to Eliquis, patient to follow-up with cardiology outpatient. Also recommending sleep study referral. Patient seen and examined at bedside. Vital signs reviewed and stable. General: Nontoxic, no distress, appears at stated age Derm: Warm, dry Head: Atraumatic, normocephalic, symmetric Eyes: EOMI, no lid lag, anicteric sclera Mouth: No lip lesion, mucus membranes moist Cardiovascular: S1S2 reg, no murmur Lungs: CTA bilateral, no rhonchi, no rales, no accessory muscle use Abdominal: Soft, nontender to palpation, no guarding, no appreciable organomegaly Ext: No gross muscle atrophy, no edema, no contractures Neuro: CN II-XI grossly intact, no focal neuro deficits Psych: Alert, oriented, appropriate affect A total of 33 minutes of time were spent preparing this complex discharge summary. Patient was discharged on 03/29/2023 at 1607. Patient Condition at Discharge: Stable Plan - Discharge Summary Discharge Rx Participant: Yes New Discharge Prescriptions: New Diltiazem Oral [Cardizem*] 60 mg PO TID #120 tab Apixaban [Eliquis] 5 mg PO BID #90 tab Furosemide [Lasix] 40 mg PO DAILY #4 tablet Continue Dulaglutide [Trulicity] 1.5 mg SQ WE metFORMIN HCL [Glucophage] 1,000 mg PO BID Lovastatin [Mevacor] 40 mg PO HS Insulin Glargine,Hum.rec.anlog [Lantus Solostar Pen] 60 unit SQ HS ARIPiprazole [Abilify] 2 mg PO DAILY Protriptyline HCl [Vivactil] 10 mg PO BID Pioglitazone [Actos] 30 mg PO DAILY Losartan Potassium 100 mg PO DAILY ALPRAZolam [Xanax] 1 mg PO BID PRN PRN Reason: Anxiety Insulin Aspart [NovoLOG Flexpen] See Protocol SQ ACHS PRN PRN Reason: HIGH BLOOD SUGAR Empagliflozin [Jardiance] 25 mg PO DAILY Discharge Medication List Dulaglutide [Trulicity] 1.5 mg SQ WE 04/17/18 [History] metFORMIN HCL [Glucophage] 1,000 mg PO BID 04/17/18 [History] Insulin Glargine,Hum.rec.anlog [Lantus Solostar Pen] 60 unit SQ HS 03/14/20 [History] Lovastatin [Mevacor] 40 mg PO HS 03/14/20 [History] ARIPiprazole [Abilify] 2 mg PO DAILY 06/28/21 [History] ALPRAZolam [Xanax] 1 mg PO BID PRN 03/27/23 [History] Empagliflozin [Jardiance] 25 mg PO DAILY 03/27/23 [History] Insulin Aspart [NovoLOG Flexpen] See Protocol SQ ACHS PRN 03/27/23 [History] Losartan Potassium 100 mg PO DAILY 03/27/23 [History] Pioglitazone [Actos] 30 mg PO DAILY 03/27/23 [History] Protriptyline HCl [Vivactil] 10 mg PO BID 03/27/23 [History] Apixaban [Eliquis] 5 mg PO BID #90 tab 03/29/23 [Rx] Diltiazem Oral [Cardizem*] 60 mg PO TID #120 tab 03/29/23 [Rx] Furosemide [Lasix] 40 mg PO DAILY #4 tablet 03/29/23 [Rx] Follow up Appointment(s)/Referral(s): Suresh Garcia MD [Medical Doctor] - 1 Week Nav Adams DO [Primary Care Provider] - 1-2 days Patient Instructions/Handouts: Atrial Flutter (DC) Activity/Diet/Wound Care/Special Instructions: Please see PCP and also cardiology. You will also need a sleep study. Discharge Disposition: HOME SELF-CARE
[2023-03-29 16:32] VITALS: BP 148/88; PULSE 96; RESP 14
--- NOTE | 2023-03-29 19:32 | P.TEE ---
Date of Procedure: 03/29/23 Description of Procedure(s): Procedure performed: 1. Transesophageal Echocardiogram. 2. Synchronized Cardioversion. 3. Bubble study Indications: Persistent atrial fibrillation Patient was following up with his primary care physician when he noticed that he was in a regular pause. His ECG showed atrial fibrillation with RVR 40s she was sent to the hospital. Patient has been noticing on and off palpitation and chest pressure-like sensation which we attribute to his persistent A-fib. Consent: I have discussed the risks, benefits and alternative therapies for the above-mentioned procedure. The patient has indicated understanding and acceptance of the risks of the procedure. Signed consent was obtained and was placed in the paper chart. Moderate conscious sedation: Moderate conscious sedation was administered by anesthesia, see separate report. Procedural Steps: Timeout was performed in usual fashion. Patient's heart rate, blood pressure, oxygen saturation and ECG were monitored. After achieving appropriate moderate conscious sedation, CASSIDY CASSIDY probe was advanced without difficulty and without any immediate complications to the esophagus. CASSIDY study was performed with color flow doppler, pulsed wave doppler and continuous wave doppler. Agitated saline bubbles were injected to assess for any intra-atrial shunt. The probe was then removed. SYNCHRONIZED CARDIOVERSION After making sure that there is no evidence of intracardiac thrombus, pacer pads were placed and secured on patients chest and back. Synchronized cardioversion was perfromed using [150] J. [1] attempt. Sinus rhythm was confirmed with a 12 lead EKG. Patient tolerated the procedure well. Patient was transferred to the post procedure area in stable and satisfactory condition. Complications: none Blood loss: none FINDINGS Left Atrium: Normal Left atrial size. No evidence of mass or thrombus seen Left Atrial Appendage: No evidence of thrombus or mass seen in RUBY Inter atrial septum: Intact inter-atrial septum. No evidence of atrial septal defect or patent foramen ovale on color doppler. Left Ventricle: Normal global LV size and systolic function Right Atrium: Mild RA dilatation Right Ventricle: Normal global RV size and systolic function Aortic Valve: Structurally normal Trileaflet, no significant calcification. No significant stenosis or regurgitation on color doppler assessment. Mitral Valve: Struturally normal. Trace functional mitral regurgitation Pulmonic Valve: Significant stenosis or regurgitation on color Doppler. Tricuspid Valve: Mild TR Ascending aorta, Aortic root and Aortic arch: Mild intimal thickening. No evidence of large atheroma or bulky calcification Descending aorta: Mild intimal thickening. No evidence of large atheroma or bulky calcification CONCLUSION: No evidence of thrombus in left atrium or left atrial appendage Evidence of right to left intracardiac shunting on bubble study Trace mitral regurgitation, mild tricuspid regurgitation Mild RA dilatation No other significant valvular dysfunction Successful cardioversion, 1 attempt, 200 J. Postop ECG shows normal sinus rh [facility] Plan Okay to be discharged from cardiovascular standpoint. Continue Eliquis 5 mg twice daily without interruption. Continue Cardizem 120 mg daily to go home with. Start Lasix 40 mg p.o. daily for next 4 days Outpatient follow-up in next [address] Garcia Findings were discussed with family and plan was explained to them. Suresh Garcia MD, RPVI, FACC Thank you for allowing [facility] to participate in this patient's care. Feel free to reach out in case of any followup questions. Please cc report to Dr. Nav Adams, DO
== END 2023-03-29 17:42 | disposition home or self-care (01) | DRG 310 ==
LOC: EC 13:22 → 3SCARD 16:55
PROVIDERS: ADMIT Internal Medicine; ATTEND Internal Medicine
PROC: 5A2204Z Restoration of Cardiac Rhythm, Single (ICD-10-PCS; principal; 2023-03-29 07:30)
PROC: B24BZZ4 Ultrasonography of Heart with Aorta, Transesophageal (ICD-10-PCS; principal; 2023-03-29 07:30)
DX: I48.0 Paroxysmal atrial fibrillation (principal); E11.43 Type 2 diabetes mellitus with diabetic autonomic (poly)neuropathy; K31.84 Gastroparesis; Z79.4 Long term (current) use of insulin; I34.0 Nonrheumatic mitral (valve) insufficiency; Z79.84 Long term (current) use of oral hypoglycemic drugs; E83.42 Hypomagnesemia; I45.10 Unspecified right bundle-branch block; I10 Essential (primary) hypertension; E78.5 Hyperlipidemia, unspecified; F41.9 Anxiety disorder, unspecified; I48.92 Unspecified atrial flutter; F17.200 Nicotine dependence, unspecified, uncomplicated; K21.9 Gastro-esophageal reflux disease without esophagitis; Z79.899 Other long term (current) drug therapy; G47.33 Obstructive sleep apnea (adult) (pediatric); Z88.0 Allergy status to penicillin; Z88.8 Allergy status to other drugs, medicaments and biological substances
CPT/HCPCS: 36415; 71046; 80048; 80053; 83036; 83735; 84443; 84484; 85025; 85379; 85610; 85730; 92960; 93005; 93306; 93312; 93320; 93325; 96361; 96365; 96366; 96368; 96376; 99291

== ENCOUNTER 2023-03-31 12:56 | Inpatient (IN) | payer BC ==
[2023-03-31] MEDS ORDERED: DILTIAZEM DRIP BOLUS FROM BAG 1 MG SOLN IV ONE (13:25)
[2023-03-31] MEDS ORDERED: ASPIRIN 81 MG PO STA (13:25)
[2023-03-31] MEDS ORDERED: SODIUM CHLORIDE 0.9% 1,000 ML IV STA (13:25)
[2023-03-31] MEDS ORDERED: DILTIAZEM 125 MG in SODIUM CHLORIDE 0.9% 100 ML IV SCH (13:30)
--- NOTE | 2023-03-31 13:51 | ED ---
General Adult HPI - General Chief complaint: Chest Pain Stated complaint: chest pains Time Seen by Provider: 03/31/23 13:14 Source: patient, family, RN notes reviewed, old records reviewed Mode of arrival: ambulatory Limitations: no limitations - History of Present Illness Initial comments: Patient is a 62-year-old male who presents emergency department complaining of tightness in his chest as well as some mild shortness of breath. Similar complaints when he was recently diagnosed with A-fib last week. Patient had cardioversion at that time to normal sinus rhythm. Was discharged home on oral Cardizem as well as Eliquis. Presents today as he was concerned that he went back in atrial fibrillation. His daughter is an ICU nurse at our facility who was able to check his heart rate and determined that he was in A-fib and was sent back to the ER for evaluation. He denies any other new complaints. Has been compliant with medications. Denies any coughing other than a mild irritative cough which has been present since he had a CASSIDY done last week. Has no other acute complaints at this time. They are requesting readmission under [facility]. Heart rates were 140 bpm at home per daughter. - Related Data Home Medications Medication Instructions Recorded Confirmed Dulaglutide [Trulicity] 1.5 mg SQ WE 04/17/18 03/31/23 metFORMIN HCL [Glucophage] 1,000 mg PO BID 04/17/18 03/31/23 Insulin Glargine,Hum.rec.anlog 60 unit SQ HS 03/14/20 03/31/23 [Lantus Solostar Pen] Lovastatin [Mevacor] 40 mg PO HS 03/14/20 03/31/23 ARIPiprazole [Abilify] 2 mg PO DAILY 06/28/21 03/31/23 ALPRAZolam [Xanax] 1 mg PO BID PRN 03/27/23 03/31/23 Empagliflozin [Jardiance] 25 mg PO DAILY 03/27/23 03/31/23 Insulin Aspart [NovoLOG Flexpen] See Protocol SQ ACHS PRN 03/27/23 03/31/23 Losartan Potassium 100 mg PO DAILY 03/27/23 03/31/23 Pioglitazone [Actos] 30 mg PO DAILY 03/27/23 03/31/23 Protriptyline HCl [Vivactil] 10 mg PO BID 03/27/23 03/31/23 Previous Rx's Medication Instructions Recorded Apixaban [Eliquis] 5 mg PO BID #90 tab 03/29/23 Diltiazem Oral [Cardizem*] 60 mg PO TID #120 tab 03/29/23 Furosemide [Lasix] 40 mg PO DAILY #4 tablet 03/29/23 Allergies Allergy/AdvReac Type Severity Reaction Status Date / Time adhesive tape Allergy Rash/Hives Verified 03/31/23 13:03 lisinopril Allergy Anaphylaxis Verified 03/27/23 15:11 Penicillins Allergy Rash/Hives Verified 03/27/23 15:11 Review of Systems ROS Statement: Those systems with pertinent positive or pertinent negative responses have been documented in the HPI. Review of Systems: CONST: Denies fever EYES: Denies blurry vision ENT: Denies nasal congestion C/V: Endorses chest tightness RESP: Endorses mild dyspnea GI: Denies abdominal pain : Denies dysuria SKIN: Denies rash. MSK: Denies joint pain. NEURO: Denies headache ROS Other: All systems not noted in ROS Statement are negative. Past Medical History Past Medical History: Diabetes Mellitus, Hyperlipidemia, Hypertension, Sleep Apnea/CPAP/BIPAP Additional Past Medical History / Comment(s): SLEEP APNEA-NO CPAP, diabetic gastroparesis History of Any Multi-Drug Resistant Organisms: None Reported Past Surgical History: Heart Catheterization Additional Past Surgical History / Comment(s): //carpal tunnel, COLONOSCOPY , RIGHT AND LEFT SHOULDER MANIPULATION , 02/20/23 right knee surgery Past Anesthesia/Blood Transfusion Reactions: No Reported Reaction Past Psychological History: Anxiety Smoking Status: Former smoker Past Alcohol Use History: None Reported Past Drug Use History: None Reported - Past Family History Mother Family Medical History: Deep Vein Thrombosis (DVT) Brother(s) Family Medical History: Cancer Additional Family Medical History / Comment(s): 2 BROTHERS WITH CANCER General Exam - General Exam Comments Initial Comments: General: Appears in no acute distress. HEAD: Normal with no signs of head trauma. EYES: PERRLA, EOMI, conjunctiva normal, no discharge. ENT: Hearing grossly intact, normal oropharynx. RESPIRATORY: Clear breath sounds bilaterally. No wheezes, rales, or rhonchi. C/V: Irregular rate and rhythm. S1 and S2 auscultated, peripheral pulses 2+ and intact throughout ABD: Abd is soft, nontender, nondistended EXT: Normal range of motion, no obvious deformity SKIN: No rashes or lesions observed on exposed skin. NEURO: Alert and oriented x 4. Limitations: no limitations Course Vital Signs 03/31/23 03/31/23 03/31/23 12:59 13:16 14:00 Temperature 97.8 F Pulse Rate 96 123 H 123 H Respiratory 18 18 18 Rate Blood Pressure 134/82 127/95 O2 Sat by Pulse 96 93 L 93 L Oximetry 03/31/23 03/31/23 03/31/23 14:30 15:00 15:30 Temperature Pulse Rate 109 H 122 H 96 Respiratory 19 18 20 Rate Blood Pressure 130/80 144/87 137/75 O2 Sat by Pulse 92 L 97 94 L Oximetry 03/31/23 03/31/23 03/31/23 16:00 16:30 17:00 Temperature Pulse Rate 108 H 88 Respiratory 24 20 Rate Blood Pressure 127/83 138/76 134/80 O2 Sat by Pulse 93 L Oximetry 03/31/23 17:30 Temperature Pulse Rate 99 Respiratory 22 Rate Blood Pressure 128/69 O2 Sat by Pulse 93 L Oximetry Medical Decision Making - Medical Decision Making Was pt. sent in by a medical professional or institution (, PA, ELECTRIC TRUCK DRIVER, urgent care, hospital, or residential...) When possible be specific @ -No Did you speak to anyone other than the patient for history (EMS, parent, family, police, friend...)? What history was obtained from this source @ -No Did you review nursing and triage notes (agree or disagree)? Why? @ -I reviewed and agree with nursing and triage notes Were old charts reviewed (outside hosp., previous admission, EMS record, old EKG, old radiological studies, urgent care reports/EKG's, residential records)? Report findings @ -Old charts reviewed Differential Diagnosis (chest pain, altered mental status, abdominal pain women, abdominal pain men, vaginal bleeding, weakness, fever, dyspnea, syncope, headache, dizziness, GI bleed, back pain, seizure, CVA, palpatations, mental health, musculoskeletal)? @ -Differential Chest Pain: Stable Angina, Unstable Angina, STEMI, NSTEMI Aortic Dissection, Pneumothorax, Musculoskeletal, Esophageal Spasm GERD, Cholecystitis, Pancreatitis, Zoster, this is not meant to be an all-inclusive list. EKG interpreted by me (3pts min.). @ -As above X-rays interpreted by me (1pt min.). @ -Chest x-ray reveals no obvious acute cardiopulmonary process. CT interpreted by me (1pt min.). @ -None done U/S interpreted by me (1pt. min.). @ -None done What testing was considered but not performed or refused? (CT, X-rays, U/S, labs)? Why? @ -None What meds were considered but not given or refused? Why? @ -Considered heparin drip but patient is already on Eliquis twice daily and has been compliant since discharge. Will continue at this time. Did you discuss the management of the patient with other professionals (professionals i.e. , PA, ELECTRIC TRUCK DRIVER, lab, RT, psych nurse, social services technician, embedder, teacher, senior major gifts officer, community case manager)? Give summary @ -Discussed with Dr. Bhandari of cardiology who was rounding and agreed to evaluate patient. Also spoke with Dr. De La Rosa the accepting physician who accepted the admission. Family and patient requested patient be admitted to [facility]. Was smoking cessation discussed for >3mins.? @ -No Was critical care preformed (if so, how long)? @ -yes, 36 minutes Were there social determinants of health that impacted care today? How? (Home lessness, low income, unemployed, alcoholism, drug addiction, transportation, low edu. Level, literacy, decrease access to med. care, [facility], rehab)? @ -No Was there de-escalation of care discussed even if they declined (Discuss DNR or withdrawal of care, Hospice)? DNR status @ -No What co-morbidities impacted this encounter? (DM, HTN, Smoking, COPD, CAD, Cancer, CVA, ARF, Chemo, Hep., AIDS, mental health diagnosis, sleep apnea, morbid obesity)? @ -None Was patient admitted / discharged? Hospital course, mention meds given and route, prescriptions, significant lab abnormalities, going to OR and other pertinent info. @ -Based on patient's presentation and physical exam, was recently cardioverted out of atrial fibrillation due to but still being symptomatic despite being rate controlled. Returns today back in atrial fibrillation and back with symptoms. Has been on Cardizem and Eliquis since discharge. Will obtain cardiac workup, as well as EKG and chest x-ray. He is already on a blood thinner so we do not need to initiate heparin drip. He will be given 324 mg of aspirin as well as be started on a Cardizem drip with a bolus. He was in agreement this plan. EKG shows atrial flutter/fibrillation with RVR.Chest x-ray unremarkable. Laboratory studies also relatively unremarkable and within acceptable limits. Troponin is undetectable. Cardiology was consulted and Dr. Bhandari was rounding in the emergency department. I notified him of the patient's presence as well as the consult. He agreed to evaluate the patient while he was down here. After discussion, cardiology will make adjustments to medications including adding amiodarone to the Cardizem drip. It appears the plan is for cardioversion tomorrow. Patient will be admitted. We will continue on IV amiodarone as well as Cardizem. Home meds will be reordered. Patient and family were in agreement this plan. I spoke with the admitting team, Dr. De La Rosa who was in agreement with the plan and accepted the admission. Family and patient were also in agreement this plan. Family and patient requested patient be admitted to [facility]. Undiagnosed new problem with uncertain prognosis? @ -No Drug Therapy requiring intensive monitoring for toxicity (Heparin, Nitro, Insulin, Cardizem)? @ -Cardizem Were any procedures done? @ -No Diagnosis/symptom? @ -Atrial flutter/fibrillation with RVR Acute, or Chronic, or Acute on Chronic? @ -Acute Uncomplicated (without systemic symptoms) or Complicated (systemic symptoms)? @ -Complicated Side effects of treatment? @ -No Exacerbation, Progression, or Severe Exacerbation? @ -No Poses a threat to life or bodily function? How? (Chest pain, [place], [place], pneumonia, PE, COPD, DKA, ARF, appy, cholecystitis, CVA, Diverticulitis, Homicidal, Suicidal, threat to staff... and all critical care pts) @ -Yes - Lab Data Result diagrams: 03/31/23 13:28 03/31/23 13:28 Lab Results 03/31/23 03/31/23 03/31/23 Range/Units 13:28 13:28 13:28 WBC 11.9 H (3.8-10.6) k/uL RBC 5.52 (4.30-5.90) m/uL Hgb 17.0 (13.0-17.5) gm/dL Hct 50.7 (39.0-53.0) % MCV 91.9 (80.0-100.0) fL MCH 30.9 (25.0-35.0) pg MCHC 33.6 (31.0-37.0) g/dL RDW 13.7 (11.5-15.5) % Plt Count 262 (150-450) k/uL MPV 7.2 Neutrophils % 66 % Lymphocytes % 20 % Monocytes % 7 % Eosinophils % 4 % Basophils % 1 % Neutrophils # 7.9 H (1.3-7.7) k/uL Lymphocytes # 2.4 (1.0-4.8) k/uL Monocytes # 0.8 (0-1.0) k/uL Eosinophils # 0.5 (0-0.7) k/uL Basophils # 0.1 (0-0.2) k/uL PT 11.1 (10.0-12.5) sec INR 1.0 (<1.2) APTT 25.1 (22.0-30.0) sec Sodium (137-145) mmol/L Potassium (3.5-5.1) mmol/L Chloride (98-107) mmol/L Carbon Dioxide (22-30) mmol/L Anion Gap mmol/L BUN (9-20) mg/dL Creatinine (0.66-1.25) mg/dL Est GFR (CKD-EPI)AfAm (>60 ml/min/1.73 sqM) Est GFR (CKD-EPI)NonAf (>60 ml/min/1.73 sqM) Glucose (74-99) mg/dL Calcium (8.4-10.2) mg/dL Magnesium (1.6-2.3) mg/dL Total Bilirubin (0.2-1.3) mg/dL AST (17-59) U/L ALT (4-49) U/L Alkaline Phosphatase (38-126) U/L Troponin I (0.000-0.034) ng/mL Total Protein (6.3-8.2) g/dL Albumin (3.5-5.0) g/dL TSH (0.465-4.680) mIU/L Urine Color Colorless Urine Appearance Clear (Clear) Urine pH 6.0 (5.0-8.0) Ur Specific [place] 1.028 (1.001-1.035) Urine Protein Negative (Negative) Urine Glucose (UA) 4+ H (Negative) Urine Ketones Negative (Negative) Urine Blood Negative (Negative) Urine Nitrite Negative (Negative) Urine Bilirubin Negative (Negative) Urine Urobilinogen <2.0 (<2.0) mg/dL Ur Leukocyte Esterase Negative (Negative) 03/31/23 03/31/23 Range/Units 13:28 13:28 WBC (3.8-10.6) k/uL RBC (4.30-5.90) m/uL Hgb (13.0-17.5) gm/dL Hct (39.0-53.0) % MCV (80.0-100.0) fL MCH (25.0-35.0) pg MCHC (31.0-37.0) g/dL RDW (11.5-15.5) % Plt Count (150-450) k/uL MPV Neutrophils % % Lymphocytes % % Monocytes % % Eosinophils % % Basophils % % Neutrophils # (1.3-7.7) k/uL Lymphocytes # (1.0-4.8) k/uL Monocytes # (0-1.0) k/uL Eosinophils # (0-0.7) k/uL Basophils # (0-0.2) k/uL PT (10.0-12.5) sec INR (<1.2) APTT (22.0-30.0) sec Sodium 140 (137-145) mmol/L Potassium 4.3 (3.5-5.1) mmol/L Chloride 108 H (98-107) mmol/L Carbon Dioxide 23 (22-30) mmol/L Anion Gap 9 mmol/L BUN 19 (9-20) mg/dL Creatinine 0.81 (0.66-1.25) mg/dL Est GFR (CKD-EPI)AfAm >90 (>60 ml/min/1.73 sqM) Est GFR (CKD-EPI)NonAf >90 (>60 ml/min/1.73 sqM) Glucose 134 H (74-99) mg/dL Calcium 9.6 (8.4-10.2) mg/dL Magnesium 1.7 (1.6-2.3) mg/dL Total Bilirubin 0.6 (0.2-1.3) mg/dL AST 30 (17-59) U/L ALT 28 (4-49) U/L Alkaline Phosphatase 86 (38-126) U/L Troponin I <0.012 (0.000-0.034) ng/mL Total Protein 8.2 (6.3-8.2) g/dL Albumin 4.4 (3.5-5.0) g/dL TSH 2.110 (0.465-4.680) mIU/L Urine Color Urine Appearance (Clear) Urine pH (5.0-8.0) Ur Specific [place] (1.001-1.035) Urine Protein (Negative) Urine Glucose (UA) (Negative) Urine Ketones (Negative) Urine Blood (Negative) Urine Nitrite (Negative) Urine Bilirubin (Negative) Urine Urobilinogen (<2.0) mg/dL Ur Leukocyte Esterase (Negative) - EKG Data -: EKG Interpreted by Me EKG Comments: 12-lead Electrocardiogram Interpretation Note EKG was reviewed and interpreted by myself. 12-lead ECG performed at 1308 is interpreted by me as revealing atrial flutter/fibrillation at a rate of 124 beats per minute. Indeterminate axis. Right bundle branch block. QRS duration is 130 ms, QTc is 385 ms there were no ST or T wave abnormalities to suggest myocardial ischemia or injury. R wave progression across the precordium was satisfactory. By my interpretation this EKG is non-diagnostic for acute ischemia. Critical Care Time Critical Care Time: Yes Total Critical Care Time: 36 Disposition Clinical Impression: Atrial fibrillation with RVR Disposition: ADMITTED IP TO THIS HOSP Condition: Stable Time of Disposition: 14:38
[2023-03-31 13:58] LABS: Basophils # (A) 0.1 k/uL (0-0.2); Basophils % (A) 1 %; Eosinophils # (A) 0.5 k/uL (0-0.7); Eosinophils % (A) 4 %; HCT 50.7 % (39.0-53.0); Lymphocytes # (A) 2.4 k/uL (1.0-4.8); Lymphocytes % (A) 20 %; MCH 30.9 pg (25.0-35.0); MCHC 33.6 g/dL (31.0-37.0); MCV 91.9 fL (80.0-100.0); Mean Platelet Volume 7.2; Monocytes # (A) 0.8 k/uL (0-1.0); Monocytes % (A) 7 %; Neutrophils # (A) 7.9 k/uL (1.3-7.7); Neutrophils % (A) 66 %; Platelet Count 262 k/uL (150-450); RBC 5.52 m/uL (4.30-5.90); RDW 13.7 % (11.5-15.5); WBC 11.9 k/uL (3.8-10.6)
[2023-03-31 14:08] LABS: Partial Thromboplastin Time 25.1 sec (22.0-30.0); Prothrombin Time 11.1 sec (10.0-12.5)
[2023-03-31 14:11] LABS: ALT 28 U/L (4-49); AST 30 U/L (17-59); African American GFR (CKD) >90 (>60 ml/min/1.73 sqM); Albumin 4.4 g/dL (3.5-5.0); Alkaline Phosphatase 86 U/L (38-126); Anion Gap 9 mmol/L; Blood Urea Nitrogen 19 mg/dL (9-20); Calcium 9.6 mg/dL (8.4-10.2); Carbon Dioxide 23 mmol/L (22-30); Chloride 108 mmol/L (98-107); Glucose 134 mg/dL (74-99); Magnesium 1.7 mg/dL (1.6-2.3); Non-African American GFR(CKD) >90 (>60 ml/min/1.73 sqM); Potassium 4.3 mmol/L (3.5-5.1); Sodium 140 mmol/L (137-145); Total Bilirubin 0.6 mg/dL (0.2-1.3); Total Protein 8.2 g/dL (6.3-8.2)
[2023-03-31] MEDS ORDERED: DEXTROSE 5% IN WATER 100 ML with AMIODARONE 150 MG IV ONE (14:43)
[2023-03-31] MEDS ORDERED: AMIODARONE 360 MG in DEXTROSE 5% IN WATER 200 ML IV ONE ×2 (14:44)
--- NOTE | 2023-03-31 14:48 | XR ---
EXAMINATION TYPE: XR chest 2V DATE OF EXAM: 03/31/2023 COMPARISON: 03/27/2023 HISTORY: Dysrhythmia TECHNIQUE: Frontal and lateral views of the chest are obtained. FINDINGS: There is no focal air space opacity, pleural effusion, or pneumothorax seen. The cardiac silhouette size is within normal limits. The osseous structures are intact. IMPRESSION: No acute cardiopulmonary process.
[2023-03-31] MEDS ORDERED: NALOXONE 0.4 MG/ML 1 ML VIAL IV PRN (14:49)
[2023-03-31] MEDS ORDERED: ONDANSETRON 4 MG/2 ML VIAL IVP PRN (14:49)
[2023-03-31 16:38] LABS: Appearance,Urine Clear (Clear); Bilirubin,Urine Negative (Negative); Blood,Urine Negative (Negative); Color,Urine Colorless; Glucose,Urine (UA) 4+ (Negative); Ketones,Urine Negative (Negative); Leukocyte Esterase,Urine Negative (Negative); Nitrite,Urine Negative (Negative); Protein,Urine Negative (Negative); Specific Gravity,Urine 1.028 (1.001-1.035); Urobilinogen,Urine <2.0 mg/dL (<2.0)
[2023-03-31] MEDS ORDERED: ALPRAZolam 1 MG TAB PO PRN (17:03)
[2023-03-31] MEDS ORDERED: DEXTROSE 50% SYRINGE 50 ML IVP PRN ×2 (17:05)
--- NOTE | 2023-03-31 17:31 | P.HPIM ---
History of Present Illness H&P Date: 03/31/23 62-year-old male with PMH of diabetes mellitus, mood disorder, dyslipidemia, hypertension, atrial fibrillation presents to the ED. He was recently admitted from 03/27-03/29 for atrial fibrillation with RVR. He underwent cardioversion at that time with Dr. Garcia on 03/29. Discharged on Cardizem and Eliquis. He reports waking up this morning feeling palpitations, lightheadedness, chest pressure. He also reports dyspnea with exertion. Checked his heart rate with his pulse ox which was in the 150s. He took his Cardizem and came to the ED. In the ED, he underwent extensive valuation. Tachycardic with heart rate in the 120s. CBC show WBC count of 11.9. Coagulation panel within normal limits. CMP chloride 108, glucose 134. Magnesium 1.7. TSH 2.11. Troponin less than 0.012 x 2. EKG showed atrial flutter with rapid ventricular rate of 124, RBBB Chest x-ray no acute process. Patient was started on Cardizem and amiodarone drip and admitted for cardiology evaluation. Plan is for cardioversion tomorrow. General: Non toxic, no distress, appears at stated age Derm: Warm, dry Head: Atraumatic, normocephalic, symmetric Eyes: EOMI, no lid lag, anicteric sclera Mouth: No lip lesion, mucus membranes moist Cardiovascular: Irregularly irregular, no murmur Lungs: Clear to auscultation bilateral, no rhonchi, no rales, no accessory muscle use Ext: No gross muscle atrophy, no edema, no contractures Neuro: no focal neuro deficits Psych: Alert, oriented, appropriate affect Based on my assessment of this patient, this patient meets a high complexity level of care. Patient has a diagnosis of atrial fibrillation with RVR which poses a threat to life or bodily function. Atrial fibrillation with RVR: Cardizem drip at 5 mg/hr. Amiodarone drip at 0.5 mg/min. Eliquis 5 mg PO BID for AC. Telemetry monitoring. Cardiology plans on cardioversion tomorrow morning. Leukocytosis: Likely reactive. No signs of active infection. Morbid obesity: Structured weight loss program. Chronic additions: Diabetes mellitus, mood disorder, dyslipidemia, hypertension CODE STATUS: FULL CODE. DVT Prophylaxis: Eliquis. GI Prophylaxis: Designated medical POA if patient is not able to make medical decisions for themselves: Danielle I have reviewed the following pricing consultant notes: I have reviewed the results of the following tests: As above. I have ordered the following tests: I have discussed the care of this patient with the following independent historian: I have independently interpreted the following test below: EKG. CXR. I have discussed the management of this patient with the following physician: Discussed with the ED provider in detail. Past Medical History Past Medical History: Diabetes Mellitus, Hyperlipidemia, Hypertension, Sleep Apnea/CPAP/BIPAP Additional Past Medical History / Comment(s): SLEEP APNEA-NO CPAP, diabetic gastroparesis History of Any Multi-Drug Resistant Organisms: None Reported Past Surgical History: Heart Catheterization Additional Past Surgical History / Comment(s): //carpal tunnel, COLONOSCOPY , RIGHT AND LEFT SHOULDER MANIPULATION , 02/20/23 right knee surgery Past Anesthesia/Blood Transfusion Reactions: No Reported Reaction Past Psychological History: Anxiety Smoking Status: Former smoker Past Alcohol Use History: None Reported Past Drug Use History: None Reported - Past Family History Mother Family Medical History: Deep Vein Thrombosis (DVT) Brother(s) Family Medical History: Cancer Additional Family Medical History / Comment(s): 2 BROTHERS WITH CANCER Medications and Allergies Home Medications Medication Instructions Recorded Confirmed Type Dulaglutide [Trulicity] 1.5 mg SQ WE 04/17/18 03/31/23 History metFORMIN HCL [Glucophage] 1,000 mg PO BID 04/17/18 03/31/23 History Insulin Glargine,Hum.rec.anlog 60 unit SQ HS 03/14/20 03/31/23 History [Lantus Solostar Pen] Lovastatin [Mevacor] 40 mg PO HS 03/14/20 03/31/23 History ARIPiprazole [Abilify] 2 mg PO DAILY 06/28/21 03/31/23 History ALPRAZolam [Xanax] 1 mg PO BID PRN 03/27/23 03/31/23 History Empagliflozin [Jardiance] 25 mg PO DAILY 03/27/23 03/31/23 History Insulin Aspart [NovoLOG Flexpen] See Protocol SQ ACHS PRN 03/27/23 03/31/23 History Losartan Potassium 100 mg PO DAILY 03/27/23 03/31/23 History Pioglitazone [Actos] 30 mg PO DAILY 03/27/23 03/31/23 History Protriptyline HCl [Vivactil] 10 mg PO BID 03/27/23 03/31/23 History Apixaban [Eliquis] 5 mg PO BID #90 tab 03/29/23 03/31/23 Rx Diltiazem Oral [Cardizem*] 60 mg PO TID #120 tab 03/29/23 03/31/23 Rx Furosemide [Lasix] 40 mg PO DAILY #4 tablet 03/29/23 03/31/23 Rx Allergies Allergy/AdvReac Type Severity Reaction Status Date / Time adhesive tape Allergy Rash/Hives Verified 03/31/23 13:03 lisinopril Allergy Anaphylaxis Verified 03/27/23 15:11 Penicillins Allergy Rash/Hives Verified 03/27/23 15:11 Physical Exam Vitals: Vital Signs Temp Pulse Resp BP Pulse Ox 03/31/23 16:30 108 H 24 138/76 03/31/23 16:00 127/83 03/31/23 15:30 96 20 137/75 94 L 03/31/23 15:00 122 H 18 144/87 97 03/31/23 14:30 109 H 19 130/80 92 L 03/31/23 14:00 123 H 18 127/95 93 L 03/31/23 13:16 123 H 18 93 L 03/31/23 12:59 97.8 F 96 18 134/82 96 Intake and Output 03/31/23 03/31/23 03/31/23 06:59 14:59 22:59 Other: Weight 117.934 kg Results CBC & Chem 7: 03/31/23 13:28 03/31/23 13:28 Labs: Abnormal Lab Results - Last 24 Hours (Table) 03/31/23 03/31/23 03/31/23 Range/Units 13:28 13:28 13:28 WBC 11.9 H (3.8-10.6) k/uL Neutrophils # 7.9 H (1.3-7.7) k/uL Chloride 108 H (98-107) mmol/L Glucose 134 H (74-99) mg/dL Urine Glucose (UA) 4+ H (Negative)
--- NOTE | 2023-03-31 19:03 | P.CRDCN ---
History of Present Illness Consult date: 03/31/23 Consult reason: atrial fibrillation Chief complaint: sob, dizziness History of present illness: History of present illness: This is a pleasant 62 year old male with significant past medical history of diabetes type 2, hypertensions, hyperlipidemia, DONNA, and newly diagnosed a-fib. He follows with Dr. Garcia. He was seen 3 days ago with new onset a-fib with RVR. He was symptomatic with dizziness, dyspnea, and chest pressure. He underwent CASSIDY and cardioversion 03/29/23. He was started on eliquis and cardizem. ECHO showed preserved EF. TSH was normal. He presented back to the ED today with complaints of worsening shortness of breath, chest pressure, and dizziness. EKG showed a- flutter with RVR 124 bpm. He is currently on cardizem drip at 5. He has not missed any doses of the Eliquis. REVIEW OF SYSTEMS: No fever or chills. No cough or expectoration. No diaphoresis. Patient denies headache, dizziness, blurred vision, double vision. Patient denies any stomach discomfort. No nausea, vomiting. No hematochezia. No hematemesis. Denies any black stools or blood in his stools. Denies dysuria or hematuria. No muscle weakness or numbness. Reports chest pain and shortness of breath. PHYSICAL EXAMINATION: This is a 62-year-old male in no apparent distress at the time of my examination. HEENT: Head is atraumatic, normocephalic. Pupils are equal, round. Sclerae anicteric. Conjunctivae are clear. Mucous membranes of the mouth are moist. Neck is supple. There is no jugular venous distention. No carotid bruit is heard. CHEST EXAMINATION: Lungs are clear. No chest wall tenderness is noted on palpation or with deep breathing. HEART EXAMINATION: Heart irregular rate and rhythm, tachycardic. S1, S2 heard. No murmurs, gallops or rub. ABDOMEN: Soft, nontender. Bowel sounds are heard. EXTREMITIES: 2+ peripheral pulses with no evidence of peripheral edema and no calf tenderness noted. NEUROLOGIC EXAMINATION: Patient is awake, alert and oriented x3. IMPRESSION AND PLAN: A-fib with RVR Hypertension Hyperlipidemia Diabetes type 2 PLAN: We will add amiodarone drip to attempt rhythm control as he remains very symptomatic with a-fib. Recommend repeat cardioversion tomorrow. [id number], continue anticoagulation. He has not missed any doses of Eliquis. Discussed may need to consider a-fib ablation for cps team lead management as an outpatient. Continue eliquis. NPO after midnight. We will follow. I am dictating on behalf of Dr. John Bhandari's history/physical and assessment/plan. Past Medical History Past Medical History: Diabetes Mellitus, Hyperlipidemia, Hypertension, Sleep Apnea/CPAP/BIPAP Additional Past Medical History / Comment(s): SLEEP APNEA-NO CPAP, diabetic gastroparesis History of Any Multi-Drug Resistant Organisms: None Reported Past Surgical History: Heart Catheterization Additional Past Surgical History / Comment(s): //carpal tunnel, COLONOSCOPY , RIGHT AND LEFT SHOULDER MANIPULATION , 02/20/23 right knee surgery Past Anesthesia/Blood Transfusion Reactions: No Reported Reaction Past Psychological History: Anxiety Smoking Status: Former smoker Past Alcohol Use History: None Reported Past Drug Use History: None Reported - Past Family History Mother Family Medical History: Deep Vein Thrombosis (DVT) Brother(s) Family Medical History: Cancer Additional Family Medical History / Comment(s): 2 BROTHERS WITH CANCER Medications and Allergies Home Medications Medication Instructions Recorded Confirmed Type Dulaglutide [Trulicity] 1.5 mg SQ WE 04/17/18 03/31/23 History metFORMIN HCL [Glucophage] 1,000 mg PO BID 04/17/18 03/31/23 History Insulin Glargine,Hum.rec.anlog 60 unit SQ HS 03/14/20 03/31/23 History [Lantus Solostar Pen] Lovastatin [Mevacor] 40 mg PO HS 03/14/20 03/31/23 History ARIPiprazole [Abilify] 2 mg PO DAILY 06/28/21 03/31/23 History ALPRAZolam [Xanax] 1 mg PO BID PRN 03/27/23 03/31/23 History Empagliflozin [Jardiance] 25 mg PO DAILY 03/27/23 03/31/23 History Insulin Aspart [NovoLOG Flexpen] See Protocol SQ ACHS PRN 03/27/23 03/31/23 History Losartan Potassium 100 mg PO DAILY 03/27/23 03/31/23 History Pioglitazone [Actos] 30 mg PO DAILY 03/27/23 03/31/23 History Protriptyline HCl [Vivactil] 10 mg PO BID 03/27/23 03/31/23 History Apixaban [Eliquis] 5 mg PO BID #90 tab 03/29/23 03/31/23 Rx Diltiazem Oral [Cardizem*] 60 mg PO TID #120 tab 03/29/23 03/31/23 Rx Furosemide [Lasix] 40 mg PO DAILY #4 tablet 03/29/23 03/31/23 Rx Allergies Allergy/AdvReac Type Severity Reaction Status Date / Time adhesive tape Allergy Rash/Hives Verified 03/31/23 13:03 lisinopril Allergy Anaphylaxis Verified 03/27/23 15:11 Penicillins Allergy Rash/Hives Verified 03/27/23 15:11 Physical Exam Vitals: Vital Signs Temp Pulse Resp BP Pulse Ox 03/31/23 16:30 108 H 24 138/76 03/31/23 16:00 127/83 03/31/23 15:30 96 20 137/75 94 L 03/31/23 15:00 122 H 18 144/87 97 03/31/23 14:30 109 H 19 130/80 92 L 03/31/23 14:00 123 H 18 127/95 93 L 03/31/23 13:16 123 H 18 93 L 03/31/23 12:59 97.8 F 96 18 134/82 96 Intake and Output 03/31/23 03/31/23 03/31/23 06:59 14:59 22:59 Other: Weight 117.934 kg Results 03/31/23 13:28 03/31/23 13:28 Cardiac Enzymes 03/31/23 03/31/23 03/31/23 Range/Units 13:28 13:28 16:02 AST 30 (17-59) U/L Troponin I <0.012 <0.012 (0.000-0.034) ng/mL Coagulation 03/31/23 Range/Units 13:28 PT 11.1 (10.0-12.5) sec APTT 25.1 (22.0-30.0) sec CBC 03/31/23 Range/Units 13:28 WBC 11.9 H (3.8-10.6) k/uL RBC 5.52 (4.30-5.90) m/uL Hgb 17.0 (13.0-17.5) gm/dL Hct 50.7 (39.0-53.0) % Plt Count 262 (150-450) k/uL Comprehensive Metabolic Panel 03/31/23 Range/Units 13:28 Sodium 140 (137-145) mmol/L Potassium 4.3 (3.5-5.1) mmol/L Chloride 108 H (98-107) mmol/L Carbon Dioxide 23 (22-30) mmol/L BUN 19 (9-20) mg/dL Creatinine 0.81 (0.66-1.25) mg/dL Glucose 134 H (74-99) mg/dL Calcium 9.6 (8.4-10.2) mg/dL AST 30 (17-59) U/L ALT 28 (4-49) U/L Alkaline Phosphatase 86 (38-126) U/L Total Protein 8.2 (6.3-8.2) g/dL Albumin 4.4 (3.5-5.0) g/dL Current Medications Generic Name Dose Route Start Last Admin Trade Name Freq PRN Reason Stop Dose Admin Diltiazem HCl 125 mg/ Sodium 125 mls @ 5 mls/hr 03/31/23 13:30 03/31/23 14:02 Chloride IV 5 mg/hr .Q24H LOPEZ 5 mls/hr Administration 5 MG/HR Amiodarone HCl 360 mg/ 200 mls @ 33.333 mls/hr 03/31/23 14:44 03/31/23 15:48 Dextrose/Water IV 03/31/23 20:43 1 mg/min .Q6H ONE 33.333 mls/hr Administration Protocol 1 MG/MIN Amiodarone HCl 450 mg/ 250 mls @ 16.667 mls/hr 03/31/23 20:43 Dextrose/Water IV 04/01/23 14:42 .Q15H LOPEZ Protocol 0.5 MG/MIN Naloxone HCl 0.2 mg 03/31/23 14:49 Naloxone 0.4 Mg/Ml 1 Ml Vial IV Q2M PRN Opioid Reversal Ondansetron HCl 4 mg 03/31/23 14:49 Ondansetron 4 Mg/2 Ml Vial IVP Q8HR PRN Nausea And Vomiting Intake and Output 02/04/24 02/04/24 02/04/24 06:59 14:59 22:59 Other: Weight 117.934 kg Patient Weight 04/01/23 06:59 Weight 117.934 kg 03/31/23 13:28 03/31/23 13:28
[2023-03-31] MEDS: INSULIN ASPART (NovoLOG) 100 UNIT/ML VIAL SQ SCH ×2 (19:31→20:26)
[2023-03-31] MEDS: PROTRIPTYLINE HCL 5 MG PO SCH (20:26)
[2023-03-31 20:27] LABS: Glucose,Whole Blood 123 mg/dL (70-110)
[2023-03-31] MEDS: APIXABAN 5 MG TAB PO SCH (20:35)
[2023-03-31] MEDS: ATORVASTATIN 10 MG TAB PO SCH (20:35)
[2023-03-31] MEDS ORDERED: INSULIN DETEMIR (LEVEMIR) 100 UNIT/ML SYR SQ SCH (21:00)
[2023-03-31] MEDS: AMIODARONE 450 MG in DEXTROSE 5% IN WATER 250 ML IV SCH ×2 (21:14)
[2023-04-01 07:00] LABS: Glucose,Whole Blood 67 mg/dL (70-110)
[2023-04-01] MEDS: INSULIN ASPART (NovoLOG) 100 UNIT/ML VIAL SQ SCH ×4 (07:06→20:27)
[2023-04-01] MEDS ORDERED: LOSARTAN 50 MG TAB PO SCH (09:00)
[2023-04-01] MEDS ORDERED: DEXTROSE 50% SYRINGE 50 ML IVP STA (09:05)
--- NOTE | 2023-04-01 09:19 | P.PN ---
Subjective Progress Note Date: 04/01/23 62-year-old male with PMH of diabetes mellitus, mood disorder, dyslipidemia, hypertension, atrial fibrillation presents to the ED. He was recently admitted from 03/27-03/29 for atrial fibrillation with RVR. He underwent cardioversion at that time with Dr. Garcia on 03/29. Discharged on Cardizem and Eliquis. He reports waking up this morning feeling palpitations, lightheadedness, chest pressure. He also reports dyspnea with exertion. Checked his heart rate with his pulse ox which was in the 150s. He took his Cardizem and came to the ED. In the ED, he underwent extensive valuation. Tachycardic with heart rate in the 120s. CBC show WBC count of 11.9. Coagulation panel within normal limits. CMP chloride 108, glucose 134. Magnesium 1.7. TSH 2.11. Troponin less than 0.012 x 2. EKG showed atrial flutter with rapid ventricular rate of 124, RBBB Chest x-ray no acute process. Patient was started on Cardizem and amiodarone drip and admitted for cardiology evaluation. Plan is for cardioversion on 04/01. 04/01 Patient was seen and examined. He reports some lightheadedness but relates it to being hypoglycemic. No chest pain or SOB. He was hypoglycemic this morning at 67, 2 amps of D50 ordered. Heart rate in the 100s. Maintained on Amiodarone and Cardizem drip. Plans for cardioversion today. CBC and BMP pending at the time of this note. General: Non toxic, no distress, appears at stated age Derm: Warm, dry Head: Atraumatic, normocephalic, symmetric Eyes: EOMI, no lid lag, anicteric sclera Mouth: No lip lesion, mucus membranes moist Cardiovascular: Irregularly irregular, no murmur Lungs: Clear to auscultation bilateral, no rhonchi, no rales, no accessory muscle use Ext: No gross muscle atrophy, no edema, no contractures Neuro: no focal neuro deficits Psych: Alert, oriented, appropriate affect Based on my assessment of this patient, this patient meets a high complexity level of care. Patient has a diagnosis of atrial fibrillation with RVR which poses a threat to life or bodily function. Atrial fibrillation with RVR: Cardizem drip at 5 mg/hr. Amiodarone drip at 0.5 mg/min. Eliquis 5 mg PO BID for AC. Telemetry monitoring. Cardiology plans on cardioversion today. Diabetes mellitus with hypoglycemia: Discontinue Levemir started by ED physician. Accuchecks ACHS. Hypoglycemic precautions. Leukocytosis: Likely reactive. No signs of active infection. Morbid obesity: Structured weight loss program. Chronic additions: Diabetes mellitus, mood disorder, dyslipidemia, hypertension CODE STATUS: FULL CODE. DVT Prophylaxis: Eliquis. GI Prophylaxis: Designated medical POA if patient is not able to make medical decisions for themselves: Danielle I have reviewed the following network security consultant notes: Cardiology note. I have reviewed the results of the following tests: POC glucose. I have ordered the following tests: Pending: CBC and BMP. I have discussed the care of this patient with the following independent historian: I have independently interpreted the following test below: I have discussed the management of this patient with the following physician: Objective - Vital Signs Vital signs: Vital Signs Temp 97.8 F 03/31/23 12:59 Pulse 90 04/01/23 06:00 Resp 20 04/01/23 06:00 BP 146/94 04/01/23 06:00 Pulse Ox 96 04/01/23 06:16 FiO2 Intake & Output 03/31/23 04/01/23 04/01/23 18:59 06:59 18:59 Weight 117.934 kg - Labs CBC & Chem 7: 03/31/23 13:28 03/31/23 13:28 Labs: Abnormal Lab Results - Last 24 Hours (Table) 03/31/23 03/31/23 03/31/23 Range/Units 13:28 13:28 13:28 WBC 11.9 H (3.8-10.6) k/uL Neutrophils # 7.9 H (1.3-7.7) k/uL Chloride 108 H (98-107) mmol/L Glucose 134 H (74-99) mg/dL POC Glucose (mg/dL) (70-110) mg/dL Urine Glucose (UA) 4+ H (Negative) 03/31/23 04/01/23 Range/Units 20:25 06:59 WBC (3.8-10.6) k/uL Neutrophils # (1.3-7.7) k/uL Chloride (98-107) mmol/L Glucose (74-99) mg/dL POC Glucose (mg/dL) 123 H 67 L (70-110) mg/dL Urine Glucose (UA) (Negative)
[2023-04-01 09:35] LABS: Basophils # (A) 0.1 k/uL (0-0.2); Basophils % (A) 1 %; Eosinophils # (A) 0.5 k/uL (0-0.7); Eosinophils % (A) 5 %; HCT 52.9 % (39.0-53.0); HGB 17.2 gm/dL (13.0-17.5); Lymphocytes # (A) 2.5 k/uL (1.0-4.8); Lymphocytes % (A) 24 %; MCH 30.2 pg (25.0-35.0); MCHC 32.4 g/dL (31.0-37.0); Mean Platelet Volume 7.1; Monocytes # (A) 0.7 k/uL (0-1.0); Monocytes % (A) 7 %; Neutrophils # (A) 6.4 k/uL (1.3-7.7); Neutrophils % (A) 60 %; Platelet Count 252 k/uL (150-450); RBC 5.69 m/uL (4.30-5.90); RDW 13.8 % (11.5-15.5); WBC 10.5 k/uL (3.8-10.6)
[2023-04-01 09:41] LABS: Glucose,Whole Blood 77 mg/dL (70-110)
[2023-04-01] MEDS: APIXABAN 5 MG TAB PO SCH ×2 (09:41→20:26)
[2023-04-01 09:56] LABS: African American GFR (CKD) >90 (>60 ml/min/1.73 sqM); Anion Gap 8 mmol/L; Blood Urea Nitrogen 17 mg/dL (9-20); Calcium 9.4 mg/dL (8.4-10.2); Carbon Dioxide 26 mmol/L (22-30); Chloride 108 mmol/L (98-107); Glucose 84 mg/dL (74-99); Non-African American GFR(CKD) 85 (>60 ml/min/1.73 sqM); Potassium 4.2 mmol/L (3.5-5.1); Sodium 142 mmol/L (137-145)
[2023-04-01] MEDS ORDERED: SODIUM CHLORIDE 0.9% 500 ML 500 ML IV ONE (10:15)
[2023-04-01] MEDS ORDERED: ADENOSINE 3 MG/ML 2 ML VIAL IVP ONE (10:19)
--- NOTE | 2023-04-01 11:12 | P.EPPROC ---
- EP Procedure Note Date of Procedure: 04/01/23 Electrophysiology Procedure Note: PROCEDURE NAME: Synchronized cardioversion. Indication:and underwent CASSIDY cardioversion. CASSIDY at that time did not show any evidence of left atrial or left atrial appendage thrombus. This was followed by cardioversion which was successful. Yesterday patient presented to the hospital again because of worsening shortness of breath. It was noticed by his daughter that patient was in atrial fibrillation at home. Due to this he presented to the ER. Today his heart rate is around 120 bpm on Cardizem drip 5 mg/h and amiodarone drip. As CASSIDY was performed recently with no evidence of intracardiac thrombus and patient has not missed any systemic anticoagulation doses. We decided not to repeat CASSIDY and directly proceed with cardioversion. Consent: Risks and benefits discussed with patient and consent obtained. Anesthesia: provided by Anesthesia team using propofol The appropriate time-out procedure was performed including proper identification of the patient, physician, procedure, documentation, and there were no safety issues identified. The patient participated actively in this. After sedation was achieved, the patient was placed in the supine position and hands free patches were placed on his chest in the AP position. 6 mg of adenosine was administered prior to cardioversion to determine what was underlying rhythm. It appears that patient is in typical atrial flutter based on the rhythm strip and the ECG. 1 shock was provided at, 200 Joules with successful resumption of normal sinus rhythm. This was confirmed on EKG. Repeat EKG confirms return to sinus rhythm. Complications: The patient tolerated the procedure well without complications. Plan Case was discussed with Dr. Johnson to see if patient would benefit from a early ablation. A collective plan was made to start patient on rate control strategy with metoprolol 100 mg twice daily. As it seems to be a reentrant tachycardia, antiarrhythmics like flecainide and amiodarone would not be helpful. Continue metoprolol 100 mg twice daily Continue Eliquis 5 mg twice daily Follow-up outpatient with Dr. Garcia in next 1 to 2 weeks. Set up a early outpatient nuclear stress test to rule out any ischemia Set up an early outpatient sleep study evaluation Set up ablation evaluation by Dr. Alex Grijalva to be discharged today.
--- NOTE | 2023-04-01 11:17 | P.EN ---
Discharge medications Eliquis 5 mg twice daily Metoprolol 100 mg twice daily which is a new medication. Use Cardizem 60 mg only as needed for palpitations. Do not take more than 1 tab in 8 hours Reduce losartan to 50 mg daily Would recommend patient to get of pioglitazone and tricyclic antidepressant which should be done as an outpatient. Please CC this note to patient's primary care physician
[2023-04-01] MEDS ORDERED: METOPROLOL TARTRATE 50 MG TAB PO STA (11:23)
[2023-04-01] MEDS ORDERED: LOSARTAN 50 MG TAB PO STA (11:27)
[2023-04-01] MEDS: PROTRIPTYLINE HCL 5 MG PO SCH ×2 (11:30→20:29)
[2023-04-01] MEDS: FUROSEMIDE 40 MG TAB PO SCH (11:34)
[2023-04-01] MEDS: ARIPiprazole 2 MG TAB PO SCH (11:58)
[2023-04-01] MEDS: AMIODARONE 450 MG in DEXTROSE 5% IN WATER 250 ML IV SCH ×2 (12:12)
--- NOTE | 2023-04-01 12:58 | PN ---
PROGRESS NOTE This gentleman underwent electrical cardioversion that was performed on Saturday. He came back with atrial fibrillation, RVR, and he received amiodarone yesterday. He is going to have an electrical cardioversion today by Dr. Stack. Vitals are stable. Heart rate is in the 110 range. Atrial fibrillation. He is on IV amiodarone. I would recommend we continue IV amiodarone and then switch it to oral after 24 hours and possible discharge later on today if he is converted to sinus rhythm. Vitals are stable. S1, S2 with a regular rate and rhythm noted. Short systolic murmur noted. Lungs revealed decent air entry. Abdominal and lower extremity exam is unchanged. He is scheduled for electrical cardioversion at 10 a.m. today. The patient and family understand and wish to proceed. MMODL / IJN: [id number] /
[2023-04-01] MEDS ORDERED: AMIODARONE 200 MG TAB PO SCH (14:00)
[2023-04-01 14:28] LABS: Glucose,Whole Blood 142 mg/dL (70-110)
[2023-04-01 16:47] LABS: Glucose,Whole Blood 115 mg/dL (70-110)
[2023-04-01 19:47] LABS: Glucose,Whole Blood 132 mg/dL (70-110)
[2023-04-01] MEDS: ATORVASTATIN 10 MG TAB PO SCH (20:26)
[2023-04-01] MEDS: METOPROLOL TARTRATE 50 MG TAB PO SCH (20:27)
[2023-04-01] MEDS ORDERED: INSULIN DETEMIR (LEVEMIR) 100 UNIT/ML SYR SQ STA (20:39)
[2023-04-01] MEDS ORDERED: METOPROLOL TARTRATE 50 MG TAB PO SCH (21:00)
[2023-04-02 05:39] LABS: Glucose,Whole Blood 104 mg/dL (70-110)
[2023-04-02] MEDS: INSULIN ASPART (NovoLOG) 100 UNIT/ML VIAL SQ SCH (05:55)
[2023-04-02] MEDS: METOPROLOL TARTRATE 50 MG TAB PO SCH (08:35)
[2023-04-02] MEDS: ARIPiprazole 2 MG TAB PO SCH (08:35)
[2023-04-02] MEDS: FUROSEMIDE 40 MG TAB PO SCH (08:35)
[2023-04-02] MEDS: PROTRIPTYLINE HCL 5 MG PO SCH (08:36)
[2023-04-02] MEDS: APIXABAN 5 MG TAB PO SCH (08:36)
[2023-04-02] MEDS ORDERED: LOSARTAN 50 MG TAB PO SCH (09:00)
[2023-04-02 10:07] VITALS: BP 145/83; PULSE 94; RESP 17; TEMP 97.7
--- NOTE | 2023-04-02 10:55 | P.DS ---
Providers Date of admission: 03/31/23 14:49 Expected date of discharge: 04/02/23 Attending physician: Spring De La Rosa MD Consults: 03/31/23 14:17 Consult Physician Routine Consulting Provider: [facility] Consult Reason/Comments: afib with rvr Do you want consulting provider notified?: Yes Primary care physician: [facility] Course: Discharge Diagnosis: Atrial flutter with rapid ventricular response Diabetes mellitus with hypoglycemia X 1 Leukocytosis, reactive Class II obesity OCD, anxiety, mood disorder Dyslipidemia Hypertension Hospital Course: Patient is a 62-year-old male with recently diagnosed atrial flutter, diabetes mellitus, dyslipidemia, hypertension, and multiple other comorbid conditions who presented to the emergency department due to palpitations. In the ER he underwent an extensive evaluation. Labs were significant for magnesium of 1.7 and white blood cell count of 11.9. That patient was in atrial fibrillation with rapid ventricular response and therefore he was started on cardia some drip. He was admitted and cardiology was consulted. On 04/01 he underwent CASSIDY with cardioversion which was successful. After review by the human service worker it appeared his initial rhythm was atrial flutter. He continued to do well and maintain normal sinus rhythm. He was determined stable for discharge home. Follow-up: Patient will follow-up with Dr. Garcia in the cardiology office with referral to Dr. Johnson for possible ablation. I discussed with the patient in detail considering coming off of his TCA and pioglitazone which he will discuss with Dr. Aburto and Dr. Adams. He will continue on Eliquis 5 mg twice daily, he will start on metoprolol 100 mg twice daily. He will use Cardizem 60 mg as needed for palpitations and will not take more than 1 tab in 8 hours. Losartan decreased to 50 mg daily. Patient seen and examined at bedside. His dizziness is resolved. He still has a flutter in his chest every once in a while but it is not consistent or persistent. He is having some shortness of breath but it is better than yesterday. No other complaints currently. Vital signs reviewed and stable. General: Nontoxic, no distress, appears at stated age Cardiovascular: S1S2 reg, no murmur, positive posterior tibial pulse bilateral, Lungs: CTA bilateral, no rhonchi, no rales, no accessory muscle use Abdominal: Soft, nontender to palpation, no guarding, no appreciable organomegaly Ext: No gross muscle atrophy, no edema b/l lower extremities, no contractures Neuro: CN II-XI grossly intact, no focal neuro deficits Psych: Alert, oriented, appropriate affect A total of 37 minutes of time were spent preparing this complex discharge summary. Patient was discharged on 04/02/23. This dictation was prepared using [employer] voice recognition software. Though every attempt is made to correct errors during dictation some may still exist. Patient Condition at Discharge: Stable Plan - Discharge Summary Discharge Rx Participant: No New Discharge Prescriptions: New Metoprolol Tartrate [Lopressor] 100 mg PO BID 30 Days #60 tablet Losartan [Cozaar] 50 mg PO DAILY 30 Days #30 tab Continue Dulaglutide [Trulicity] 1.5 mg SQ WE metFORMIN HCL [Glucophage] 1,000 mg PO BID Lovastatin [Mevacor] 40 mg PO HS Insulin Glargine,Hum.rec.anlog [Lantus Solostar Pen] 60 unit SQ HS ARIPiprazole [Abilify] 2 mg PO DAILY Protriptyline HCl [Vivactil] 10 mg PO BID Pioglitazone [Actos] 30 mg PO DAILY ALPRAZolam [Xanax] 1 mg PO BID PRN PRN Reason: Anxiety Insulin Aspart [NovoLOG Flexpen] See Protocol SQ ACHS PRN PRN Reason: HIGH BLOOD SUGAR Empagliflozin [Jardiance] 25 mg PO DAILY Apixaban [Eliquis] 5 mg PO BID #90 tab Discontinued Losartan Potassium 100 mg PO DAILY Diltiazem Oral [Cardizem*] 60 mg PO TID #120 tab Furosemide [Lasix] 40 mg PO DAILY #4 tablet Discharge Medication List Dulaglutide [Trulicity] 1.5 mg SQ WE 04/17/18 [History] metFORMIN HCL [Glucophage] 1,000 mg PO BID 04/17/18 [History] Insulin Glargine,Hum.rec.anlog [Lantus Solostar Pen] 60 unit SQ HS 03/14/20 [History] Lovastatin [Mevacor] 40 mg PO HS 03/14/20 [History] ARIPiprazole [Abilify] 2 mg PO DAILY 06/28/21 [History] ALPRAZolam [Xanax] 1 mg PO BID PRN 03/27/23 [History] Empagliflozin [Jardiance] 25 mg PO DAILY 03/27/23 [History] Insulin Aspart [NovoLOG Flexpen] See Protocol SQ ACHS PRN 03/27/23 [History] Pioglitazone [Actos] 30 mg PO DAILY 03/27/23 [History] Protriptyline HCl [Vivactil] 10 mg PO BID 03/27/23 [History] Apixaban [Eliquis] 5 mg PO BID #90 tab 03/29/23 [Rx] Losartan [Cozaar] 50 mg PO DAILY 30 Days #30 tab 04/01/23 [Rx] Metoprolol Tartrate [Lopressor] 100 mg PO BID 30 Days #60 tablet 04/01/23 [Rx] Follow up Appointment(s)/Referral(s): Suresh Garcia MD [Medical Doctor] - 1 Week (please call to schedule followup with Dr. Garcia in one week from today.) Nav Adams DO [Primary Care Provider] - 1-2 days Patient Instructions/Handouts: Atrial Flutter (DC) Activity/Diet/Wound Care/Special Instructions: Activity: As tolerated Diet: Carb consistent Special Instructions: Please discuss with Dr. Lamonte evans the possibility of coming off pioglitazone as cardiology is worried about its potential to cause fluid retention. Please talk with Dr. Adams about coming off of your protriptyline as it has a side effect of tachycardia. This should be risk versus benefits discussions with both pr oviders. Your Cardizem at home can be taken 1 pill every 8 hours as needed for palpitations. Please return to the ER with sustained heart rates greater than 140, dizziness, or palpitations. You are okay to restart physical therapy for your knee with close monitoring of her heart rates during sessions. Discharge Disposition: HOME SELF-CARE
--- NOTE | 2023-04-02 11:51 | P.PN ---
Subjective HISTORY OF PRESENT ILLNESS: Patient is status post cardioversion yesterday with Dr. Garcia. He is maintaining sinus mechanism this morning. Patient was initially cleared for discharge yesterday but was having some dizziness in the afternoon and primary medicine decided to hold his discharge. He reports his dizziness has resolved today. He denies any chest pain or pressure. Denies any shortness of breath. Vital signs remained stable. PHYSICAL EXAM: VITAL SIGNS: Reviewed. GENERAL: Well-developed in no acute distress. NECK: Supple. No JVD or thyromegaly LUNGS: Respirations even and unlabored. Lungs essentially clear to auscultation bilaterally. HEART: Regular rate and rhythm. S1 and S2 heard. EXTREMITIES: Normal range of motion. No clubbing or cyanosis. Peripheral pulses intact. No lower extremity edema ASSESSMENT: Paroxysmal atrial fibrillation/flutter with RVR, status post cardioversion History of CASSIDY and cardioversion 03-29-2023 Hypertension Hyperlipidemia Diabetes PLAN: Continue current cardiac medications Patient is stable for discharge home today from a cardiac standpoint Nurse practitioner note has been reviewed by physician. Signing provider agrees with the documented findings, assessment, and plan of care documented by [employer] MACHINE OPERATOR as a scribe. Objective - Vital Signs Vital signs: Vital Signs Temp 97.7 F 04/02/23 08:30 Pulse 94 04/02/23 08:30 Resp 17 04/02/23 08:30 BP 145/83 04/02/23 08:30 Pulse Ox 94 L 04/02/23 08:30 FiO2 Intake & Output 04/01/23 04/02/23 04/02/23 18:59 06:59 18:59 Intake Total 607.505 Balance 607.505 Weight 117.934 kg Intake: IV 200 Intake, IV Titration 227.505 Amount Amiodarone 450 mg In 227.505 Dextrose 5% in Water 250 ml @ 0.5 MG/MIN 16.667 mls/hr IV .Q15H LOPEZ Rx#: [id number] Oral 180 Other: # Voids 1 - Labs CBC & Chem 7: 04/01/23 09:18 04/01/23 09:18 Labs: Abnormal Lab Results - Last 24 Hours (Table) 04/01/23 04/01/23 04/01/23 Range/Units 14:22 16:45 19:45 POC Glucose (mg/dL) 142 H 115 H 132 H (70-110) mg/dL
== END 2023-04-02 11:23 | disposition home or self-care (01) | DRG 310 ==
LOC: EC 12:56 → 3SCARD 14:49
PROVIDERS: ADMIT Family Medicine; ATTEND Family Medicine
PROC: 5A2204Z Restoration of Cardiac Rhythm, Single (ICD-10-PCS; principal; 2023-03-31)
PROC: B246ZZ4 Ultrasonography of Right and Left Heart, Transesophageal (ICD-10-PCS; 2023-03-31)
DX: I48.0 Paroxysmal atrial fibrillation (principal); I48.92 Unspecified atrial flutter; Z79.01 Long term (current) use of anticoagulants; E11.649 Type 2 diabetes mellitus with hypoglycemia without coma; Z71.3 Dietary counseling and surveillance; E66.9 Obesity, unspecified; F42.9 Obsessive-compulsive disorder, unspecified; E78.5 Hyperlipidemia, unspecified; I10 Essential (primary) hypertension; F41.9 Anxiety disorder, unspecified; R00.0 Tachycardia, unspecified; E11.43 Type 2 diabetes mellitus with diabetic autonomic (poly)neuropathy; K31.84 Gastroparesis; F39 Unspecified mood [affective] disorder; E66.01 Morbid (severe) obesity due to excess calories; I45.10 Unspecified right bundle-branch block; Z79.4 Long term (current) use of insulin; Z79.84 Long term (current) use of oral hypoglycemic drugs; Z79.899 Other long term (current) drug therapy; Z88.8 Allergy status to other drugs, medicaments and biological substances; Z88.0 Allergy status to penicillin
CPT/HCPCS: 36415; 71046; 80048; 80053; 81003; 83735; 84443; 84484; 85025; 85610; 85730; 92960; 93005; 96365; 96366; 96368; 96375; 99285

== ENCOUNTER 2023-04-06 17:19 | Inpatient (IN) | payer BC ==
--- NOTE | 2023-04-06 17:28 | ED ---
General Adult HPI - General Chief complaint: Chest Pain Stated complaint: Chest pains Time Seen by Provider: 04/06/23 17:26 Source: patient Mode of arrival: ambulatory Limitations: no limitations - History of Present Illness Initial comments: Patient presents to the ED with his for evaluation. Patient states that he has had 2 hospital admissions and 2 electrical cardioversions for atrial fibrillation over the past couple of weeks. Patient is currently being scheduled for an ablation procedure. Patient states that he has had rapid heart palpitations and dyspnea "all day today". Patient states that he has also had some chest heaviness since this afternoon. Patient's states that the patient's proteomics scientist instructed her to bring the patient to the ED should his heart rate get above 140, which it did this evening, so she has brought him to the ED. Patient denies trauma or injury, fever or chills, headache, focal numbness/weakness/neuro deficit, neck/arm/jaw/back pain, pleuritic pain, cough or cold symptoms, dizziness, syncope, nausea/vomiting/diaphoresis, abdominal pain, diarrhea, bloody or melanotic stool, dysuria or urinary symptoms, decreased urine output, leg or calf swelling or pain, or any other symptoms or complaints. - Related Data Home Medications Medication Instructions Recorded Confirmed Dulaglutide [Trulicity] 1.5 mg SQ WE 04/17/18 03/31/23 metFORMIN HCL [Glucophage] 1,000 mg PO BID 04/17/18 03/31/23 Insulin Glargine,Hum.rec.anlog 60 unit SQ HS 03/14/20 03/31/23 [Lantus Solostar Pen] Lovastatin [Mevacor] 40 mg PO HS 03/14/20 03/31/23 ARIPiprazole [Abilify] 2 mg PO DAILY 06/28/21 03/31/23 ALPRAZolam [Xanax] 1 mg PO BID PRN 03/27/23 03/31/23 Empagliflozin [Jardiance] 25 mg PO DAILY 03/27/23 03/31/23 Insulin Aspart [NovoLOG Flexpen] See Protocol SQ ACHS PRN 03/27/23 03/31/23 Pioglitazone [Actos] 30 mg PO DAILY 03/27/23 03/31/23 Protriptyline HCl [Vivactil] 10 mg PO BID 03/27/23 03/31/23 Previous Rx's Medication Instructions Recorded Apixaban [Eliquis] 5 mg PO BID #90 tab 03/29/23 Losartan [Cozaar] 50 mg PO DAILY 30 Days #30 tab 04/01/23 Metoprolol Tartrate [Lopressor] 100 mg PO BID 30 Days #60 tablet 04/01/23 Allergies Allergy/AdvReac Type Severity Reaction Status Date / Time adhesive tape Allergy Rash/Hives Verified 04/06/23 17:25 lisinopril Allergy Anaphylaxis Verified 04/06/23 17:25 Penicillins Allergy Rash/Hives Verified 04/06/23 17:25 Review of Systems ROS Statement: Those systems with pertinent positive or pertinent negative responses have been documented in the HPI. ROS Other: All systems not noted in ROS Statement are negative. Past Medical History Past Medical History: Diabetes Mellitus, Hyperlipidemia, Hypertension, Sleep Apnea/CPAP/BIPAP Additional Past Medical History / Comment(s): SLEEP APNEA-NO CPAP, diabetic gastroparesis History of Any Multi-Drug Resistant Organisms: None Reported Past Surgical History: Heart Catheterization Additional Past Surgical History / Comment(s): //carpal tunnel, COLONOSCOPY , RIGHT AND LEFT SHOULDER MANIPULATION , 02/20/23 right knee surgery, cardioversion x2 Past Anesthesia/Blood Transfusion Reactions: No Reported Reaction Past Psychological History: Anxiety Smoking Status: Former smoker Past Alcohol Use History: None Reported Past Drug Use History: None Reported - Past Family History Mother Family Medical History: Deep Vein Thrombosis (DVT) Brother(s) Family Medical History: Cancer Additional Family Medical History / Comment(s): 2 BROTHERS WITH CANCER General Exam Limitations: no limitations General appearance: alert, in no apparent distress Eye exam: Present: normal appearance ENT exam: Present: mucous membranes moist Neck exam: Present: other (Trachea is in midline) Respiratory exam: Present: normal lung sounds bilaterally. Absent: respiratory distress, wheezes, rales, rhonchi, stridor, chest wall tenderness Cardiovascular Exam: Present: tachycardia, irregular rhythm, normal heart sounds, other (Normal radial pulses bilaterally) GI/Abdominal exam: Present: soft. Absent: tenderness, guarding Extremities exam: Present: other (Negative Homans' sign bilaterally). Absent: tenderness, pedal edema, calf tenderness Neurological exam: Present: alert, oriented X3. Absent: motor sensory deficit Skin exam: Present: warm, dry, normal color Course Vital Signs 04/06/23 04/06/23 04/06/23 17:22 17:28 18:08 Temperature 97.6 F 97.8 F Pulse Rate 143 H 125 H 112 H Respiratory 20 20 18 Rate Blood Pressure 158/115 169/97 156/94 O2 Sat by Pulse 99 98 97 Oximetry - Reevaluation(s) Reevaluation #1: 04/06/23 18:25 Patient remains in atrial fibrillation on the field auditor, but his heart rate has now improved to the 100's - 110's. Patient reports some improvement in his symptoms. Patient denies development of any new symptoms while in the ED. Patient remains alert and breathing comfortably with a normal room air oxygen saturation. Patient, and daughter are aware the patient's test results, and they all agree with hospital admission at this time. 04/06/23 18:37 Case, H&P, test results and ED management thus far were discussed with Dr. Knight. She accepts hospital admission. She agrees with starting the patient on a diltiazem IV drip at this time. She also agrees with cardiology consultation. She has no further recommendations at this time. EKG Findings - EKG Comments: EKG Findings:: ED physician interpretation (interpreted by me): Atrial fibr illation with RVR, ventricular rate of 123 bpm, right bundle branch block, QRS duration of 128 ms, normal QT interval, leftward axis, no ST elevation Medical Decision Making - Medical Decision Making Was pt. sent in by a medical professional or institution (, PA, GLOVE BOARDER, urgent care, hospital, or fdc...) When possible be specific @ -No Did you speak to anyone other than the patient for history (EMS, parent, family, police, friend...)? What history was obtained from this source @ -History was also obtained from the patient's . Did you review nursing and triage notes (agree or disagree)? Why? @ -I reviewed and agree with nursing and triage notes Were old charts reviewed (outside hosp., previous admission, EMS record, old EKG, old radiological studies, urgent care reports/EKG's, fdc records)? Report findings @ -No old charts were reviewed Differential Diagnosis (chest pain, altered mental status, abdominal pain women, abdominal pain men, vaginal bleeding, weakness, fever, dyspnea, syncope, headache, dizziness, GI bleed, back pain, seizure, CVA, palpatations, mental health, musculoskeletal)? @ -Differential Palpitations Ventricular arrhythmias, atrial arrhythmias, atrial fibrillation, atrial flutter, myocardial infarction, anemia, thyrotoxicosis, electrolyte imbalance, hypokalemia, pulmonary disease, drugs, alcohol, anxiety, stress.... This is not meant to be an all-inclusive list. EKG interpreted by me (3pts min.). @ -As above X-rays interpreted by me (1pt min.). @ -Chest x-ray was reviewed myself and shows no acute cardiopulmonary disease. I agree with the radiologist's interpretation as above. CT interpreted by me (1pt min.). @ -None done U/S interpreted by me (1pt. min.). @ -None done What testing was considered but not performed or refused? (CT, X-rays, U/S, labs)? Why? @ -None What meds were considered but not given or refused? Why? @ -None Did you discuss the management of the patient with other professionals (professionals i.e. , PA, GLOVE BOARDER, lab, RT, psych nurse, high school social studies teacher, drier and pulverizer tender, teacher, booking police officer, case mgr)? Give summary @ -As above. Was smoking cessation discussed for >3mins.? @ -No Was critical care preformed (if so, how long)? @ -Yes, for 30 minutes. Were there social determinants of health that impacted care today? How? (Homelessness, low income, unemployed, alcoholism, drug addiction, transportation, low edu. Level, literacy, decrease access to med. care, correction, rehab)? @ -No Was there de-escalation of care discussed even if they declined (Discuss DNR or withdrawal of care, Hospice)? DNR status @ -No What co-morbidities impacted this encounter? (DM, HTN, Smoking, COPD, CAD, Cancer, CVA, ARF, Chemo, Hep., AIDS, mental health diagnosis, sleep apnea, morbid obesity)? @ -Atrial fibrillation Was patient admitted / discharged? Hospital course, mention meds given and route, prescriptions, significant lab abnormalities, going to OR and other pertinent info. @ -Patient presented to the ED in atrial fibrillation with RVR (heart rate in the 130s to 140s). Patient's heart rate has improved with IV diltiazem treatment in the ED. Patient remains alert and breathing comfortably with a normal room air oxygen saturation. Patient's troponin and BNP are within normal limits, as is the patient's chest x-ray. The rest of the patient's labs are fairly unremarkable. Patient's daughter is an ICU nurse here, and she states that the patient's proteomics scientist apparently came to the ED and saw the patient while in the ED and is adjusted his metoprolol dose. Case was discussed with Dr. Knight who accepts hospital admission. Patient and family agree with this plan. Undiagnosed new problem with uncertain prognosis? @ -No Drug Therapy requiring intensive monitoring for toxicity (Heparin, Nitro, Insulin, Cardizem)? @ -No Were any procedures done? @ -No Diagnosis/symptom? @ -Atrial fibrillation with rapid ventricular response Acute, or Chronic, or Acute on Chronic? @ -Default Uncomplicated (without systemic symptoms) or Complicated (systemic symptoms)? @ -Default Side effects of treatment? @ -No Exacerbation, Progression, or Severe Exacerbation? @ -No Poses a threat to life or bodily function? How? (Chest pain, [place], [place], pneumonia, PE, COPD, DKA, ARF, appy, cholecystitis, CVA, Diverticulitis, Homicidal, Suicidal, threat to staff... and all critical care pts) @ -No - Lab Data Result diagrams: 04/06/23 17:41 04/06/23 17:41 Lab Results 04/06/23 04/06/23 04/06/23 Range/Units 17:41 17:41 17:41 WBC 10.8 H (3.8-10.6) k/uL RBC 5.59 (4.30-5.90) m/uL Hgb 17.1 (13.0-17.5) gm/dL Hct 51.5 (39.0-53.0) % MCV 92.2 (80.0-100.0) fL MCH 30.5 (25.0-35.0) pg MCHC 33.1 (31.0-37.0) g/dL RDW 13.5 (11.5-15.5) % Plt Count 245 (150-450) k/uL MPV 7.3 Neutrophils % 51 % Lymphocytes % 33 % Monocytes % 6 % Eosinophils % 5 % Basophils % 1 % Neutrophils # 5.5 (1.3-7.7) k/uL Lymphocytes # 3.6 (1.0-4.8) k/uL Monocytes # 0.7 (0-1.0) k/uL Eosinophils # 0.6 (0-0.7) k/uL Basophils # 0.1 (0-0.2) k/uL PT 11.4 (10.0-12.5) sec INR 1.0 (<1.2) APTT 25.9 (22.0-30.0) sec Sodium 142 (137-145) mmol/L Potassium 4.6 (3.5-5.1) mmol/L Chloride 106 (98-107) mmol/L Carbon Dioxide 28 (22-30) mmol/L Anion Gap 8 mmol/L BUN 17 (9-20) mg/dL Creatinine 0.78 (0.66-1.25) mg/dL Est GFR (CKD-EPI)AfAm >90 (>60 ml/min/1.73 sqM) Est GFR (CKD-EPI)NonAf >90 (>60 ml/min/1.73 sqM) Glucose 153 H (74-99) mg/dL Calcium 9.5 (8.4-10.2) mg/dL Magnesium 1.7 (1.6-2.3) mg/dL Total Bilirubin 0.3 (0.2-1.3) mg/dL AST 23 (17-59) U/L ALT 25 (4-49) U/L Alkaline Phosphatase 108 (38-126) U/L Troponin I (0.000-0.034) ng/mL NT-Pro-B Natriuret Pep 111 pg/mL Total Protein 7.9 (6.3-8.2) g/dL Albumin 4.1 (3.5-5.0) g/dL 04/06/23 Range/Units 17:41 WBC (3.8-10.6) k/uL RBC (4.30-5.90) m/uL Hgb (13.0-17.5) gm/dL Hct (39.0-53.0) % MCV (80.0-100.0) fL MCH (25.0-35.0) pg MCHC (31.0-37.0) g/dL RDW (11.5-15.5) % Plt Count (150-450) k/uL MPV Neutrophils % % Lymphocytes % % Monocytes % % Eosinophils % % Basophils % % Neutrophils # (1.3-7.7) k/uL Lymphocytes # (1.0-4.8) k/uL Monocytes # (0-1.0) k/uL Eosinophils # (0-0.7) k/uL Basophils # (0-0.2) k/uL PT (10.0-12.5) sec INR (<1.2) APTT (22.0-30.0) sec Sodium (137-145) mmol/L Potassium (3.5-5.1) mmol/L Chloride (98-107) mmol/L Carbon Dioxide (22-30) mmol/L Anion Gap mmol/L BUN (9-20) mg/dL Creatinine (0.66-1.25) mg/dL Est GFR (CKD-EPI)AfAm (>60 ml/min/1.73 sqM) Est GFR (CKD-EPI)NonAf (>60 ml/min/1.73 sqM) Glucose (74-99) mg/dL Calcium (8.4-10.2) mg/dL Magnesium (1.6-2.3) mg/dL Total Bilirubin (0.2-1.3) mg/dL AST (17-59) U/L ALT (4-49) U/L Alkaline Phosphatase (38-126) U/L Troponin I <0.012 (0.000-0.034) ng/mL NT-Pro-B Natriuret Pep pg/mL Total Protein (6.3-8.2) g/dL Albumin (3.5-5.0) g/dL - Radiology Data Chest x-ray: No acute process. No significant change from prior. Critical Care Time Critical Care Time: Yes Total Critical Care Time: 30 Disposition Clinical Impression: Atrial fibrillation with RVR Disposition: ADMITTED IP TO THIS HOSP Condition: Stable Is patient prescribed a controlled substance at d/c from ED?: No Referrals: Nav Adams DO [Primary Care Provider] - 1-2 days Time of Disposition: 18:37
[2023-04-06 17:49] LABS: Basophils # (A) 0.1 k/uL (0-0.2); Basophils % (A) 1 %; Eosinophils # (A) 0.6 k/uL (0-0.7); Eosinophils % (A) 5 %; HCT 51.5 % (39.0-53.0); HGB 17.1 gm/dL (13.0-17.5); Lymphocytes # (A) 3.6 k/uL (1.0-4.8); Lymphocytes % (A) 33 %; MCH 30.5 pg (25.0-35.0); MCHC 33.1 g/dL (31.0-37.0); MCV 92.2 fL (80.0-100.0); Mean Platelet Volume 7.3; Monocytes # (A) 0.7 k/uL (0-1.0); Monocytes % (A) 6 %; Neutrophils # (A) 5.5 k/uL (1.3-7.7); Neutrophils % (A) 51 %; Platelet Count 245 k/uL (150-450); RBC 5.59 m/uL (4.30-5.90); RDW 13.5 % (11.5-15.5); WBC 10.8 k/uL (3.8-10.6)
[2023-04-06] MEDS: DILTIAZEM 5 MG/ML 5 ML VIAL IVP STA (17:51)
[2023-04-06 17:57] LABS: Partial Thromboplastin Time 25.9 sec (22.0-30.0); Prothrombin Time 11.4 sec (10.0-12.5)
--- NOTE | 2023-04-06 18:01 | XR ---
EXAMINATION TYPE: XR chest 1V portable DATE OF EXAM: 04/06/2023 COMPARISON: Chest x-ray 6 days ago HISTORY: Palpitations. TECHNIQUE: Single frontal view of the chest is obtained. FINDINGS: There is no focal air space opacity, pleural effusion, or pneumothorax seen. The cardiac silhouette size is stable and upper limits of normal. The osseous structures are intact. IMPRESSION: No acute process. No significant change from prior.
[2023-04-06 18:02] LABS: ALT 25 U/L (4-49); AST 23 U/L (17-59); African American GFR (CKD) >90 (>60 ml/min/1.73 sqM); Albumin 4.1 g/dL (3.5-5.0); Alkaline Phosphatase 108 U/L (38-126); Anion Gap 8 mmol/L; Blood Urea Nitrogen 17 mg/dL (9-20); Calcium 9.5 mg/dL (8.4-10.2); Carbon Dioxide 28 mmol/L (22-30); Chloride 106 mmol/L (98-107); Glucose 153 mg/dL (74-99); Magnesium 1.7 mg/dL (1.6-2.3); Non-African American GFR(CKD) >90 (>60 ml/min/1.73 sqM); Potassium 4.6 mmol/L (3.5-5.1); Sodium 142 mmol/L (137-145); Total Bilirubin 0.3 mg/dL (0.2-1.3); Total Protein 7.9 g/dL (6.3-8.2)
[2023-04-06 18:10] LABS: NT-Pro-B-Type Natriuretic Pept 111 pg/mL
[2023-04-06] MEDS: METOPROLOL TARTRATE 50 MG TAB PO STA (18:23)
[2023-04-06] MEDS: METOPROLOL TARTRATE 50 MG TAB PO SCH (18:46)
[2023-04-06] MEDS ORDERED: NALOXONE 0.4 MG/ML 1 ML VIAL IV PRN (18:49)
[2023-04-06] MEDS: DILTIAZEM 125 MG in SODIUM CHLORIDE 0.9% 100 ML IV SCH (18:49)
[2023-04-06 20:58] LABS: Glucose,Whole Blood 91 mg/dL (70-110)
--- NOTE | 2023-04-07 02:56 | P.HPIM ---
History of Present Illness H&P Date: 04/06/23 Patient is a 62-year-old male with a PMH of A-fib (multiple recent hospitalizations with 2 electrical cardioversions, reports currently scheduled for an ablation, on Eliquis), type II DM, hypertension, hyperlipidemia who presents to the emergency room with complaints of palpitations, shortness of br eath, and chest tightness. Patient reports his symptoms have been ongoing for the past 1 to 2 days and have persisted. He checked his heart rate at home which was in the 140s to 160s, at which point he contacted his psychiatric clinician who advised him to go to the emergency room. At time of interview, patient reports occasional palpitations and chest tightness, lasting for few minutes at a time. Denied fever, chills, cough, nausea, vomiting, abdominal pain, diarrhea. EKG in the emergency room revealed A-fib with RVR at 123 bpm with left axis deviation and right bundle branch block as reviewed by me. Chest x-ray was unremarkable. Laboratory evaluation was remarkable for leukocytosis of 10.8, troponin less than 0.012 with proBNP 111. ED documentation reviewed and case discussed with ED provider. Review of systems: Pertinent positives and negatives as discussed in HPI, a complete review of systems was performed and all other systems are negative. Physical examination: Vital signs reviewed General: non toxic, no distress, appears at stated age, morbidly obese Derm: no unusual rashes/lesions, warm Head: atraumatic, normocephalic, symmetric Eyes: EOMI, no lid lag, anicteric sclera, pupils equal round reactive to light ENT: Nose and ears atraumatic Neck: No cervical lymphadenopathy, trachea midline, supple Mouth: no lip lesion, mucus membranes moist Cardiovascular: Irregularly irregular, no murmur, positive dorsalis pedis pulse bilateral, no edema Lungs: CTA bilateral, no rhonchi, no rales, no accessory muscle use Abdominal: soft, nontender to palpation, no guarding Ext: muscle strength 5 out of 5 in all 4 extremities grossly, no gross muscle atrophy, no contractures, Neuro: CN II-XI grossly intact, no gross focal neuro deficits Psych: Alert, oriented, appropriate affect Assessment: A-fib with RVR Leukocytosis, likely due to acute stressor, no signs of active infection at this time Chronic conditions: Type II DM, hypertension, hyperlipidemia Imaging: EKG in the emergency room revealed A-fib with RVR at 123 bpm with left axis deviation and right bundle branch block as reviewed by me. Chest x-ray was unremarkable. Data Review: Laboratory evaluation was remarkable for leukocytosis of 10.8, troponin less than 0.012 with proBNP 111. Plan: Continue with Cardizem infusion Cardiac monitoring Cardiology consulted Continue Lopressor 200 mg p.o. twice daily Insulin sliding scale and blood glucose monitoring Resume home medications DVT prophylaxis: Dina The patient is admitted with an anticipated greater than 2 midnight stay for evaluation of Afib CODE STATUS: Full Code Discussed with: Patient Anticipated discharge place: Home Past Medical History Past Medical History: Diabetes Mellitus, Hyperlipidemia, Hypertension, Sleep Apnea/CPAP/BIPAP Additional Past Medical History / Comment(s): SLEEP APNEA-NO CPAP, diabetic gastroparesis History of Any Multi-Drug Resistant Organisms: None Reported Past Surgical History: Heart Catheterization Additional Past Surgical History / Comment(s): //carpal tunnel, COLONOSCOPY , RIGHT AND LEFT SHOULDER MANIPULATION , 02/20/23 right knee surgery, cardioversion x2 Past Anesthesia/Blood Transfusion Reactions: No Reported Reaction Past Psychological History: Anxiety Smoking Status: Former smoker Past Alcohol Use History: None Reported Additional Past Alcohol Use History / Comment(s): STARTED SMOKING AT AGE 21 SMOKING 3/4PPD Past Drug Use History: None Reported - Past Family History Mother Family Medical History: Deep Vein Thrombosis (DVT) Brother(s) Family Medical History: Cancer Additional Family Medical History / Comment(s): 2 BROTHERS WITH CANCER Medications and Allergies Home Medications Medication Instructions Recorded Confirmed Type Dulaglutide [Trulicity] 1.5 mg SQ WE 04/17/18 04/06/23 History metFORMIN HCL [Glucophage] 1,000 mg PO BID 04/17/18 04/06/23 History Insulin Glargine,Hum.rec.anlog 60 unit SQ HS 03/14/20 04/06/23 History [Lantus Solostar Pen] Lovastatin [Mevacor] 40 mg PO HS 03/14/20 04/06/23 History ARIPiprazole [Abilify] 2 mg PO DAILY 06/28/21 04/06/23 History ALPRAZolam [Xanax] 1 mg PO BID PRN 03/27/23 04/06/23 History Empagliflozin [Jardiance] 25 mg PO DAILY 03/27/23 04/06/23 History Insulin Aspart [NovoLOG Flexpen] See Protocol SQ ACHS PRN 03/27/23 04/06/23 History Pioglitazone [Actos] 30 mg PO DAILY 03/27/23 04/06/23 History Protriptyline HCl [Vivactil] 10 mg PO BID 03/27/23 04/06/23 History Apixaban [Eliquis] 5 mg PO BID #90 tab 03/29/23 04/06/23 Rx Losartan [Cozaar] 50 mg PO DAILY 30 Days #30 tab 04/01/23 04/06/23 Rx Metoprolol Tartrate [Lopressor] 100 mg PO BID 30 Days #60 tablet 04/01/23 04/06/23 Rx Allergies Allergy/AdvReac Type Severity Reaction Status Date / Time adhesive tape Allergy Rash/Hives Verified 04/06/23 17:25 lisinopril Allergy Anaphylaxis Verified 04/06/23 17:25 Penicillins Allergy Rash/Hives Verified 04/06/23 17:25 Physical Exam Vitals: Vital Signs Temp Pulse Pulse Resp BP BP Pulse Ox 04/06/23 20:00 97.9 F 103 H 18 154/80 98 04/06/23 18:08 97.8 F 112 H 18 156/94 97 04/06/23 17:28 125 H 20 169/97 98 04/06/23 17:22 97.6 F 143 H 20 158/115 99 Intake and Output 04/06/23 04/06/23 04/06/23 06:59 14:59 22:59 Other: Weight 120.202 kg Results CBC & Chem 7: 04/06/23 17:41 04/06/23 17:41 Labs: Abnormal Lab Results - Last 24 Hours (Table) 04/06/23 04/06/23 Range/Units 17:41 17:41 WBC 10.8 H (3.8-10.6) k/uL Glucose 153 H (74-99) mg/dL Thrombosis Risk Factor Assmnt - Choose All That Apply Each Factor Represents 1 point: Obesity (BMI >25) Other Risk Factors: Yes Each Risk Factor Represents 2 Points: Age 61-74 years Each Risk Factor Represents 3 Points: Family history of DVT/PE Thrombosis Risk Factor Assessment Total Risk Factor Score: 6 Thrombosis Risk Factor Assessment Level: High Risk
[2023-04-07 06:01] LABS: Glucose,Whole Blood 123 mg/dL (70-110)
[2023-04-07] MEDS: ARIPiprazole 2 MG TAB PO SCH (08:27)
[2023-04-07] MEDS: APIXABAN 5 MG TAB PO SCH (08:27)
[2023-04-07] MEDS: LOSARTAN 50 MG TAB PO SCH (08:27)
[2023-04-07] MEDS: PROTRIPTYLINE HCL 5 MG PO SCH (08:28)
[2023-04-07] MEDS ORDERED: bisacodyL 5 MG TABLET.DR PO PRN (08:30)
[2023-04-07] MEDS: ACETAMINOPHEN TAB 325 MG TAB PO PRN (08:35)
[2023-04-07 09:33] LABS: Basophils # (A) 0.1 k/uL (0-0.2); Basophils % (A) 1 %; Eosinophils # (A) 0.4 k/uL (0-0.7); Eosinophils % (A) 3 %; HGB 17.1 gm/dL (13.0-17.5); Lymphocytes # (A) 3.2 k/uL (1.0-4.8); Lymphocytes % (A) 27 %; MCH 30.4 pg (25.0-35.0); MCHC 32.8 g/dL (31.0-37.0); MCV 92.6 fL (80.0-100.0); Mean Platelet Volume 7.7; Monocytes # (A) 0.7 k/uL (0-1.0); Monocytes % (A) 6 %; Neutrophils # (A) 6.9 k/uL (1.3-7.7); Neutrophils % (A) 60 %; Platelet Count 242 k/uL (150-450); RBC 5.62 m/uL (4.30-5.90); RDW 13.6 % (11.5-15.5); WBC 11.6 k/uL (3.8-10.6)
[2023-04-07 09:34] LABS: ALT 25 U/L (4-49); AST 26 U/L (17-59); African American GFR (CKD) >90 (>60 ml/min/1.73 sqM); Albumin 3.8 g/dL (3.5-5.0); Alkaline Phosphatase 88 U/L (38-126); Anion Gap 7 mmol/L; Blood Urea Nitrogen 16 mg/dL (9-20); Calcium 9.3 mg/dL (8.4-10.2); Carbon Dioxide 24 mmol/L (22-30); Chloride 110 mmol/L (98-107); Glucose 108 mg/dL (74-99); Non-African American GFR(CKD) >90 (>60 ml/min/1.73 sqM); Potassium 4.7 mmol/L (3.5-5.1); Sodium 141 mmol/L (137-145); Total Bilirubin 0.4 mg/dL (0.2-1.3); Total Protein 7.5 g/dL (6.3-8.2)
[2023-04-07] MEDS: DILTIAZEM CD 120 MG CAP.ER.24H PO SCH (10:41)
[2023-04-07 11:31] LABS: Glucose,Whole Blood 126 mg/dL (70-110)
--- NOTE | 2023-04-07 12:37 | P.CNPUL ---
History of Present Illness Consult date: 04/07/23 Reason for consult: obstructive sleep apnea History of present illness: 62-year-old male patient who is being seen regarding the possibility of obstructive sleep apnea. The patient has been having recurrent episodes of A- fib requiring multiple hospitalization. Yesterday, the patient had A-fib with RVR and the patient accordingly was brought into the hospital again. Note that the A-fib is occurring mainly during the day and has no nocturnal relationship. His heart rate was up to 160 and he was brought into the emergency department and the patient is currently on Cardizem drip at 5 mg an hour. His cardiac rhythm is switching to a flutter. He is going to need an ablation at a later stage. Nevertheless, I was asked to consult on this patient as the patient is told to have obstructive sleep apnea. The is at the bedside and she confirms that the patient snores very loud and he has long apneas throughout the night. He tries to sleep on his side. He goes to bed around 11 PM and wakes up 6 AM in the morning and the patient has chronic hypersomnia sleepiness and he can easily nap during the day. He has chronic tiredness and fatigue. Denies waking up choking or gasping for air. He has gained weight recently in the ord er of 20 to 25 pounds. No restlessness in lower extremities. No nocturnal seizures. No nocturnal chest pain. No heartburn. No personal or family history of obstructive sleep apnea. The patient has had no trauma to the head. No sleepwalking. No sleep talking. No other parasomnias noted. The patient is resting comfortably in bed at this point in time. Chest x-ray is unremarkable. His troponins were negative. proBNP level is 111. The patient is currently on a Cardizem drip. He is going to need a screening polysomnogram and subsequent therapy for sleep apnea as the patient has a high clinical suspicion for underlying DONNA. He is currently retired. No history of any motor vehicle accident because of feeling drowsy or sleepy. Review of Systems Constitutional: Reports daytime sleepiness, Reports fatigue, Reports weight gain Eyes: denies as per HPI, denies blurred vision, denies bulging eye, denies decreased vision, denies diplopia, denies discharge, denies dry eye, denies irritation, denies itching, denies pain, denies photophobia, denies loss of peripheral vision, denies loss of vision, denies tunnel vision/blind spots Ears: deny: decreased hearing, ear discharge, earache, tinnitus Ears, nose, mouth and throat: Reports as per HPI Breasts: absent: as per HPI, gynecomastia Cardiovascular: Reports irregular heart beat, Reports rapid heart beat, Reports shortness of breath Respiratory: Reports dyspnea, Reports sleep apnea, Reports snoring Gastrointestinal: Reports as per HPI Genitourinary: Reports as per HPI Musculoskeletal: Reports as per HPI Musculoskeletal: absent: ankle pain, ankle stiffness, ankle swelling Integumentary: Reports as per HPI Neurological: Reports as per HPI Psychiatric: Reports as per HPI Endocrine: Reports as per HPI, Reports fatigue Hematologic/Lymphatic: Reports as per HPI Allergic/Immunologic: Reports as per HPI Past Medical History Past Medical History: Atrial Fibrillation, Atrial Flutter, Diabetes Mellitus, Hyperlipidemia, Hypertension, Sleep Apnea/CPAP/BIPAP Additional Past Medical History / Comment(s): SLEEP APNEA-NO CPAP, diabetic gastroparesis History of Any Multi-Drug Resistant Organisms: None Reported Past Surgical History: Heart Catheterization Additional Past Surgical History / Comment(s): //carpal tunnel, COLONOSCOPY , RIGHT AND LEFT SHOULDER MANIPULATION , 02/20/23 right knee surgery, cardioversion x2 Past Anesthesia/Blood Transfusion Reactions: No Reported Reaction Past Psychological History: Anxiety Smoking Status: Former smoker Past Alcohol Use History: None Reported Additional Past Alcohol Use History / Comment(s): STARTED SMOKING AT AGE 21 SMOKING 3/4PPD Past Drug Use History: None Reported - Past Family History Mother Family Medical History: Deep Vein Thrombosis (DVT) Brother(s) Family Medical History: Cancer Additional Family Medical History / Comment(s): 2 BROTHERS WITH CANCER Medications and Allergies Home Medications Medication Instructions Recorded Confirmed Type Dulaglutide [Trulicity] 1.5 mg SQ WE 04/17/18 04/06/23 History metFORMIN HCL [Glucophage] 1,000 mg PO BID 04/17/18 04/06/23 History Insulin Glargine,Hum.rec.anlog 60 unit SQ HS 03/14/20 04/06/23 History [Lantus Solostar Pen] Lovastatin [Mevacor] 40 mg PO HS 03/14/20 04/06/23 History ARIPiprazole [Abilify] 2 mg PO DAILY 06/28/21 04/06/23 History ALPRAZolam [Xanax] 1 mg PO BID PRN 03/27/23 04/06/23 History Empagliflozin [Jardiance] 25 mg PO DAILY 03/27/23 04/06/23 History Insulin Aspart [NovoLOG Flexpen] See Protocol SQ ACHS PRN 03/27/23 04/06/23 History Pioglitazone [Actos] 30 mg PO DAILY 03/27/23 04/06/23 History Protriptyline HCl [Vivactil] 10 mg PO BID 03/27/23 04/06/23 History Apixaban [Eliquis] 5 mg PO BID #90 tab 03/29/23 04/06/23 Rx Losartan [Cozaar] 50 mg PO DAILY 30 Days #30 tab 04/01/23 04/06/23 Rx Metoprolol Tartrate [Lopressor] 100 mg PO BID 30 Days #60 tablet 04/01/23 04/06/23 Rx Allergies Allergy/AdvReac Type Severity Reaction Status Date / Time adhesive tape Allergy Rash/Hives Verified 04/06/23 17:25 lisinopril Allergy Anaphylaxis Verified 04/06/23 17:25 Penicillins Allergy Rash/Hives Verified 04/06/23 17:25 Physical Exam Vitals: Vital Signs Temp Pulse Pulse Resp BP BP BP 04/07/23 08:25 04/07/23 08:20 97.9 F 115 H 20 149/71 04/07/23 04:00 97.5 F L 103 H 16 131/83 04/07/23 02:00 102 H 18 04/07/23 00:00 97.8 F 102 H 18 154/70 04/06/23 20:00 97.9 F 96 18 154/80 04/06/23 18:08 97.8 F 112 H 18 156/94 04/06/23 17:28 125 H 20 169/97 04/06/23 17:22 97.6 F 143 H 20 158/115 Pulse Ox 04/07/23 08:25 96 04/07/23 08:20 96 04/07/23 04:00 97 04/07/23 02:00 04/07/23 00:00 97 04/06/23 20:00 98 04/06/23 18:08 97 04/06/23 17:28 98 04/06/23 17:22 99 Intake and Output 04/06/23 04/07/23 04/07/23 22:59 06:59 14:59 Other: Voiding Method Toilet Toilet # Voids 3 Weight 120.202 kg Morbidly obese, calm and comfortable with a body mass index of 37.5 Head exam was generally normal. There was no scleral icterus or corneal arcus. Mucous membranes were moist. Neck is short and the patient has significant crowding of posterior pharynx with a Mallampati class IV. He has a thick neck. No JVD is could be appreciated. No neck masses. Lungs were clear to auscultation and percussion, and with normal diaphragmatic excursion. No wheezes or rales were noted. Heart sounds are irregular is still tachycardic. Positive S1-S2 and overall heart sounds are distant. Abdominal exam revealed normal bowel sounds. The abdomen was soft, non-tender, and without masses, organomegaly, or appreciable enlargement of the abdominal aorta. Examination of the extremities revealed easily palpable radial, femoral and pedal pulses. There was no cyanosis, clubbing or edema. Examination of the skin revealed no evidence of significant rashes, suspicious appearing nevi or other concerning lesions. Neurologically, the patient is awake and alert and the patient does not have any focal neurological deficit. Cranial nerves are essentially intact. Results - Laboratory Findings CBC and BMP: 04/07/23 08:29 04/07/23 08:29 PT/INR, D-dimer PT 11.4 sec (10.0-12.5) 04/06/23 17:41 INR 1.0 (<1.2) 04/06/23 17:41 Abnormal lab findings: Abnormal Labs 04/06/23 04/06/23 04/07/23 17:41 17:41 05:58 WBC 10.8 H Chloride Glucose 153 H POC Glucose (mg/dL) 123 H 04/07/23 04/07/23 08:29 08:29 WBC 11.6 H Chloride 110 H Glucose 108 H POC Glucose (mg/dL) - Diagnostic Findings Chest x-ray: image reviewed Assessment and Plan Plan: Loud snoring and witnessed apneas and chronic hypersomnia sleepiness and typical anatomic features to suggest obstructive sleep apnea. The patient has Mallampati class IV. Overall clinical suspicion for obstructive sleep apnea is quite high and this is mildly contributing also to his recurrent episodes of atrial fibrillation/flutter. The patient will need further testing Chronic hypersomnia secondary to above Obesity with a BMI of 37.5 Recurrent episodes of A-fib with RVR, currently on a Cardizem drip for rate control. Diabetes mellitus type 2 Hypertension Hyperlipidemia History of diabetic gastroparesis Plan Management of A-fib per cardiology Patient is currently on a Cardizem drip Patient may most likely need a cardiac ablation of atrial fibrillation at a later stage I am going to set up this patient for a screening polysomnography as soon as possible and this will be done immediately after discharge and proceed with treatment accordingly Encourage weight loss Optimize comorbidities including diabetes mellitus Will continue to follow
--- NOTE | 2023-04-07 13:07 | P.CRDCN ---
History of Present Illness History of present illness: HISTORY OF PRESENTING ILLNESS This is a pleasant 62-year-old male past medical history significant for paroxysmal atrial fib and flutter on eliquis s/p cardioversion, hypertension, dyslipidemia and diabetes mellitus. Follows in the office with Dr. Garcia. We have been asked to see in consultation for atrial flutter. He recently saw Dr. Johnson in the office and is in the process of being scheduled for an a flutter ablation. He presented to the hospital with palpitations and EKG revealed atrial fibs/flutter heart rate of 123. He is currently more rate controlled but in persistent atrial flutter. Laboratory data reviewed, WBC 11.6, hemoglobin 17.1, platelets 242, sodium 141, potassium 4.7, creatinine 0.74 troponin negative x 3, magnesium 1.7 and TSH from previous admission March 31, 2023 was 2.1. Current daily cardiac medications include Eliquis 5 mg twice daily, losartan 50 mg daily, Lopressor 100 mg twice daily and lovastatin 40 mg at bedtime. Most recent echo obtained March 2023 revealed preserved LV systolic function with ejection fraction 55% with mild MR. REVIEW OF SYSTEMS At the time of my exam: CONSTITUTIONAL: Denies fever or chills. CARDIOVASCULAR: Denies chest pain, shortness of breath, orthopnea, PND or palpitations. RESPIRATORY: Denies cough. GASTROINTESTINAL: Denies abdominal pain, diarrhea, constipation, nausea or vomiting. MUSCULOSKELETAL: Denies myalgias. NEUROLOGIC: Denies numbness, tingling, headache or weakness. ENDOCRINE: Denies fatigue, weight change, polydipsia or polyurina. GENITOURINARY: Denies burning, hematuria or urgency with micturation. HEMATOLOGIC: Denies history of anemia or bleeding. PHYSICAL EXAMINATION Vital signs reviewed CONSTITUTIONAL: No apparent distress. HEENT: Head is normocephalic. Pupils are equal, round. Sclerae anicteric. Mucous membranes of the mouth are moist. No JVD. No carotid bruit. CHEST EXAMINATION: Lungs are clear to auscultation. No chest wall tenderness is noted on palpation or with deep breathing. HEART EXAMINATION: Irregular rate and rhythm. S1, S2 heard. No murmurs, gallops or rub. ABDOMEN: Soft, nontender. EXTREMITIES: 2+ peripheral pulses, no lower extremity edema and no calf tenderness. NEUROLOGIC EXAMINATION: Patient is awake, alert and oriented x3. ASSESSMENT Typical atrial flutter Hypertension Dyslipidemia Diabetes mellitus PLAN Increase metoprolol to 200 mg twice daily. Discontinue Cardizem infusion. Add oral Cardizem 120 mg daily. Continue to monitor heart rates on telemetry. The recommendations to follow based upon clinical course. Thank you kindly for this consultation. Nurse Practitioner note has been reviewed, I agree with a documented findings and plan of care. Patient was seen and examined. Past Medical History Past Medical History: Diabetes Mellitus, Hyperlipidemia, Hypertension, Sleep Apnea/CPAP/BIPAP Additional Past Medical History / Comment(s): SLEEP APNEA-NO CPAP, diabetic gastroparesis History of Any Multi-Drug Resistant Organisms: None Reported Past Surgical History: Heart Catheterization Additional Past Surgical History / Comment(s): //carpal tunnel, COLONOSCOPY , RIGHT AND LEFT SHOULDER MANIPULATION , 02/20/23 right knee surgery, cardioversion x2 Past Anesthesia/Blood Transfusion Reactions: No Reported Reaction Past Psychological History: Anxiety Smoking Status: Former smoker Past Alcohol Use History: None Reported Additional Past Alcohol Use History / Comment(s): STARTED SMOKING AT AGE 21 SMOKING 3/4PPD Past Drug Use History: None Reported - Past Family History Mother Family Medical History: Deep Vein Thrombosis (DVT) Brother(s) Family Medical History: Cancer Additional Family Medical History / Comment(s): 2 BROTHERS WITH CANCER Medications and Allergies Home Medications Medication Instructions Recorded Confirmed Type Dulaglutide [Trulicity] 1.5 mg SQ WE 04/17/18 04/06/23 History metFORMIN HCL [Glucophage] 1,000 mg PO BID 04/17/18 04/06/23 History Insulin Glargine,Hum.rec.anlog 60 unit SQ HS 03/14/20 04/06/23 History [Lantus Solostar Pen] Lovastatin [Mevacor] 40 mg PO HS 03/14/20 04/06/23 History ARIPiprazole [Abilify] 2 mg PO DAILY 06/28/21 04/06/23 History ALPRAZolam [Xanax] 1 mg PO BID PRN 03/27/23 04/06/23 History Empagliflozin [Jardiance] 25 mg PO DAILY 03/27/23 04/06/23 History Insulin Aspart [NovoLOG Flexpen] See Protocol SQ ACHS PRN 03/27/23 04/06/23 History Pioglitazone [Actos] 30 mg PO DAILY 03/27/23 04/06/23 History Protriptyline HCl [Vivactil] 10 mg PO BID 03/27/23 04/06/23 History Apixaban [Eliquis] 5 mg PO BID #90 tab 03/29/23 04/06/23 Rx Losartan [Cozaar] 50 mg PO DAILY 30 Days #30 tab 04/01/23 04/06/23 Rx Metoprolol Tartrate [Lopressor] 100 mg PO BID 30 Days #60 tablet 04/01/23 04/06/23 Rx Allergies Allergy/AdvReac Type Severity Reaction Status Date / Time adhesive tape Allergy Rash/Hives Verified 04/06/23 17:25 lisinopril Allergy Anaphylaxis Verified 04/06/23 17:25 Penicillins Allergy Rash/Hives Verified 04/06/23 17:25 Physical Exam Vitals: Vital Signs Temp Pulse Pulse Resp BP BP BP 04/07/23 08:25 04/07/23 08:20 97.9 F 115 H 20 149/71 04/07/23 04:00 97.5 F L 103 H 16 131/83 04/07/23 02:00 102 H 18 04/07/23 00:00 97.8 F 102 H 18 154/70 04/06/23 20:00 97.9 F 96 18 154/80 04/06/23 18:08 97.8 F 112 H 18 156/94 04/06/23 17:28 125 H 20 169/97 04/06/23 17:22 97.6 F 143 H 20 158/115 Pulse Ox 04/07/23 08:25 96 04/07/23 08:20 96 04/07/23 04:00 97 04/07/23 02:00 04/07/23 00:00 97 04/06/23 20:00 98 04/06/23 18:08 97 04/06/23 17:28 98 04/06/23 17:22 99 Intake and Output 04/06/23 04/07/23 04/07/23 22:59 06:59 14:59 Other: Voiding Method Toilet Toilet # Voids 3 Weight 120.202 kg Results 04/07/23 08:29 04/07/23 08:29 Cardiac Enzymes 04/06/23 04/06/23 04/06/23 Range/Units 17:41 17:41 20:22 AST 23 (17-59) U/L Troponin I <0.012 <0.012 (0.000-0.034) ng/mL 04/07/23 04/07/23 Range/Units 00:44 08:29 AST 26 (17-59) U/L Troponin I <0.012 (0.000-0.034) ng/mL Coagulation 04/06/23 Range/Units 17:41 PT 11.4 (10.0-12.5) sec APTT 25.9 (22.0-30.0) sec CBC 04/06/23 04/07/23 Range/Units 17:41 08:29 WBC 10.8 H 11.6 H (3.8-10.6) k/uL RBC 5.59 5.62 (4.30-5.90) m/uL Hgb 17.1 17.1 (13.0-17.5) gm/dL Hct 51.5 52.0 (39.0-53.0) % Plt Count 245 242 (150-450) k/uL Comprehensive Metabolic Panel 04/06/23 04/07/23 Range/Units 17:41 08:29 Sodium 142 141 (137-145) mmol/L Potassium 4.6 4.7 (3.5-5.1) mmol/L Chloride 106 110 H (98-107) mmol/L Carbon Dioxide 28 24 (22-30) mmol/L BUN 17 16 (9-20) mg/dL Creatinine 0.78 0.74 (0.66-1.25) mg/dL Glucose 153 H 108 H (74-99) mg/dL Calcium 9.5 9.3 (8.4-10.2) mg/dL AST 23 26 (17-59) U/L ALT 25 25 (4-49) U/L Alkaline Phosphatase 108 88 (38-126) U/L Total Protein 7.9 7.5 (6.3-8.2) g/dL Albumin 4.1 3.8 (3.5-5.0) g/dL Current Medications Generic Name Dose Route Start Last Admin Trade Name Freq PRN Reason Stop Dose Admin Acetaminophen 650 mg 04/07/23 08:30 04/07/23 08:35 Acetaminophen Tab 325 Mg Tab PO 650 mg Q6HR PRN Administration Fever and/ or Mild Pain Alprazolam 1 mg 04/07/23 02:54 Alprazolam 1 Mg Tab PO BID PRN Anxiety Apixaban 5 mg 04/07/23 09:00 04/07/23 08:27 Apixaban 5 Mg Tab PO 5 mg BID LOPEZ Administration Protocol Aripiprazole 2 mg 04/07/23 09:00 04/07/23 08:27 Aripiprazole 2 Mg Tab PO 2 mg DAILY LOPEZ Administration Atorvastatin Calcium 10 mg 04/07/23 21:00 Atorvastatin 10 Mg Tab PO HS LOPEZ Bisacodyl 5 mg 04/07/23 08:30 Bisacodyl 5 Mg Tablet.Dr PO DAILY PRN Constipation Diltiazem HCl 120 mg 04/07/23 10:45 Diltiazem Cd 120 Mg Cap.Er.24h PO DAILY LOPEZ Melatonin 5 mg 04/07/23 08:30 Melatonin 5 Mg Tablet PO HS PRN Insomnia Metoprolol Tartrate 200 mg 04/06/23 21:00 04/07/23 08:28 Metoprolol Tartrate 50 Mg Tab PO 200 mg BID LOPEZ Administration Naloxone HCl 0.2 mg 04/06/23 18:49 Naloxone 0.4 Mg/Ml 1 Ml Vial IV Q2M PRN Opioid Reversal Non-Formulary Medication 10 mg 04/07/23 09:00 04/07/23 08:28 Protriptyline Hcl [Vivactil] PO Not Given BID [facility] Intake and Output 04/06/23 04/07/23 04/07/23 22:59 06:59 14:59 Other: Voiding Method Toilet Toilet # Voids 3 Weight 120.202 kg 04/07/23 08:29 04/07/23 08:29
[2023-04-07] MEDS ORDERED: DEXTROSE 50% SYRINGE 50 ML IVP PRN (14:02)
--- NOTE | 2023-04-07 14:05 | P.PN ---
Subjective Progress Note Date: 04/07/23 (delayed charting seen at approx 1000) Patient is a 62-year-old male with known atrial fibs/flutter (multiple hospitalizations the first on 03/27/2023 and the second on 04/20 both with cardioversions and medications adjustments currently following with Dr. Johnson for EP ablation and needs to undergo sleep study), diabetes mellitus type 2, hypertension, and dyslipidemia who presented to the emergency department with palpitations. In the ER he underwent an extensive evaluation labs were hernanar asim for white blood cell count of 10.8. Initial troponin was negative. EKG confirmed atrial flutter. In the ER he was given a one-time dose of IV Cardizem and then started on a Cardizem drip. He was seen by cardiology and started on metoprolol. He was admitted to the cardiac unit for further monitoring. Patient seen and examined at bedside. Denies any chest pain, still feeling short of breath, somewhat fatigued. Vital signs reviewed General: Nontoxic, no distress, appears at stated age Cardiovascular: S1S2 reg, no murmur Lungs: Decreased bs bilateral, no rhonchi, no rales, no accessory muscle use Abdominal: Soft, nontender to palpation, no guarding Ext: No gross muscle atrophy, no edema b/l lower extremities, no contractures Neuro: CN II-XI grossly intact, no focal neuro deficits Psych: Alert, oriented, appropriate affect Assessment/Plan: Atrial flutter with rapid ventricular response Hypertension Dyslipidemia -Metoprolol 200 mg twice daily -Cardiology note reviewed: Cardizem infusion discontinued started Cardizem 120 mg daily -Continue to monitor on telemetry. Diabetes mellitus type 2 -Resume home Jardiance, Levemir 60 mg at night, sliding scale insulin - hold actos - follow BS Probable obstructive sleep apnea -Pulmonary consultation placed. Case discussed with Dr. Rodgers and will attempt to set up PSG as soon as possible for the patient, encouraged weight loss Imaging: None new Data Review: Labs reviewed from today include CBC and CMP which are remarkable for blood sugar of 108 DVT prophylaxis: Eliquis Anticipated discharge date: In a.m. Anticipated discharge place: Home This dictation was prepared using [email or web address] voice recognition software. Though every attempt is made to correct errors during dictation some may still exist. Objective - Vital Signs Vital signs: Vital Signs Temp 98.6 F 04/07/23 12:02 Pulse 123 H 04/07/23 12:02 Resp 18 04/07/23 12:02 BP 139/78 04/07/23 12:02 Pulse Ox 97 04/07/23 12:02 FiO2 Intake & Output 04/06/23 04/07/23 04/07/23 18:59 06:59 18:59 Intake Total 329.333 Balance 329.333 Weight 120.202 kg 120.202 kg Intake: IV 10 Invasive Line 1 10 Intake, IV Titration 79.333 Amount Diltiazem 125 mg In 79.333 Sodium Chloride 0.9% 100 ml @ 5 MG/HR 5 mls/hr IV .Q24H [facility] Rx#:[id number] Oral 240 Other: Voiding Method Toilet Toilet # Voids 3 2 - Labs CBC & Chem 7: 04/07/23 08:29 04/07/23 08:29 Labs: Abnormal Lab Results - Last 24 Hours (Table) 04/06/23 04/06/23 04/07/23 Range/Units 17:41 17:41 05:58 WBC 10.8 H (3.8-10.6) k/uL Chloride (98-107) mmol/L Glucose 153 H (74-99) mg/dL POC Glucose (mg/dL) 123 H (70-110) mg/dL 04/07/23 04/07/23 04/07/23 Range/Units 08:29 08:29 11:29 WBC 11.6 H (3.8-10.6) k/uL Chloride 110 H (98-107) mmol/L Glucose 108 H (74-99) mg/dL POC Glucose (mg/dL) 126 H (70-110) mg/dL
[2023-04-07] MEDS: DAPAGLIFLOZIN PROPANEDIOL 10 MG TABLET PO SCH (14:12)
[2023-04-07 16:48] LABS: Glucose,Whole Blood 111 mg/dL (70-110)
[2023-04-07] MEDS: INSULIN ASPART (NovoLOG) 100 UNIT/ML VIAL SQ SCH (17:08)
[2023-04-07 20:29] LABS: Glucose,Whole Blood 137 mg/dL (70-110)
[2023-04-07] MEDS: INSULIN DETEMIR (LEVEMIR) 100 UNIT/ML SYR SQ SCH (20:40)
[2023-04-07] MEDS: MELATONIN 5 MG TABLET PO PRN (20:41)
[2023-04-07] MEDS: ATORVASTATIN 10 MG TAB PO SCH (20:41)
[2023-04-08 06:20] LABS: Glucose,Whole Blood 99 mg/dL (70-110)
[2023-04-08] MEDS: ALPRAZolam 1 MG TAB PO PRN (09:29)
--- NOTE | 2023-04-08 10:43 | P.PN ---
Subjective Progress Note Date: 04/08/23 HISTORY OF PRESENTING ILLNESS This is a pleasant 62-year-old male past medical history significant for paroxysmal atrial fib and flutter on eliquis s/p cardioversion, hypertension, dyslipidemia and diabetes mellitus. Follows in the office with Dr. Garcia. We have been asked to see in consultation for atrial flutter. He recently saw Dr. Johnson in the office and is in the process of being scheduled for an a flutter ablation. He presented to the hospital with palpitations and EKG revealed atrial fibs/flutter heart rate of 123. He is currently more rate controlled but in persistent atrial flutter. Laboratory data reviewed, WBC 11.6, hemoglobin 17.1, platelets 242, sodium 141, potassium 4.7, creatinine 0.74 troponin negative x 3, magnesium 1.7 and TSH from previous admission March 31, 2023 was 2.1. Current daily cardiac medications include Eliquis 5 mg twice daily, losartan 50 mg daily, Lopressor 100 mg twice daily and lovastatin 40 mg at bedtime. Most recent echo obtained March 2023 revealed preserved LV systolic function with ejection fraction 55% with mild MR. 04/08 Patient remains in atrial flutter with controlled rate in the 70s to 90s. Blood pressure 136/70. Patient has been the scheduled for atrial flutter ablation today with Dr. Johnson. PHYSICAL EXAMINATION Vital signs reviewed CONSTITUTIONAL: No apparent distress. HEENT: Head is normocephalic. Pupils are equal, round. Sclerae anicteric. Mucous membranes of the mouth are moist. No JVD. No carotid bruit. CHEST EXAMINATION: Lungs are clear to auscultation. No chest wall tenderness is noted on palpation or with deep breathing. HEART EXAMINATION: Regular rate and rhythm. S1, S2 heard. No murmurs, gallops or rub. ABDOMEN: Soft, nontender. EXTREMITIES: 2+ peripheral pulses, no lower extremity edema and no calf tenderness. NEUROLOGIC EXAMINATION: Patient is awake, alert and oriented x3. ASSESSMENT Typical atrial flutter Hypertension Dyslipidemia Diabetes mellitus PLAN Continue metoprolol 200 mg twice daily. Continue oral Cardizem 120 mg daily. Continue to monitor heart rates on telemetry. Atrial flutter ablation today with Dr. Johnson. Nurse Practitioner note has been reviewed, I agree with a documented findings and plan of care. Patient was seen and examined. Objective - Vital Signs Vital signs: Vital Signs Temp 97.8 F 04/08/23 07:58 Pulse 90 04/08/23 07:58 Resp 16 04/08/23 07:58 BP 136/70 04/08/23 07:58 Pulse Ox 98 04/08/23 07:58 FiO2 Intake & Output 04/07/23 04/08/23 04/08/23 18:59 06:59 18:59 Intake Total 569.333 10 240 Balance 569.333 10 240 Intake: IV 10 10 Invasive Line 1 10 10 Intake, IV Titration 79.333 Amount Diltiazem 125 mg In 79.333 Sodium Chloride 0.9% 100 ml @ 5 MG/HR 5 mls/hr IV .Q24H [facility] Rx#:[id number] Oral 480 240 Other: Voiding Method Toilet Toilet # Voids 3 1 - Labs CBC & Chem 7: 04/07/23 08:29 04/07/23 08:29 Labs: Abnormal Lab Results - Last 24 Hours (Table) 04/07/23 04/07/23 04/07/23 Range/Units 08:29 08:29 11:29 WBC 11.6 H (3.8-10.6) k/uL Chloride 110 H (98-107) mmol/L Glucose 108 H (74-99) mg/dL POC Glucose (mg/dL) 126 H (70-110) mg/dL 04/07/23 04/07/23 Range/Units 16:46 20:28 WBC (3.8-10.6) k/uL Chloride (98-107) mmol/L Glucose (74-99) mg/dL POC Glucose (mg/dL) 111 H 137 H (70-110) mg/dL
[2023-04-08 11:36] LABS: Glucose,Whole Blood 87 mg/dL (70-110)
[2023-04-08] MEDS: LORazepam 2 MG/ML INJ IV PRN (12:35)
[2023-04-08] MEDS: DEXTROSE 50% SYRINGE 50 ML IVP PRN (12:52)
[2023-04-08 12:55] LABS: Glucose,Whole Blood 76 mg/dL (70-110)
[2023-04-08 15:33] LABS: Glucose,Whole Blood 88 mg/dL (70-110)
--- NOTE | 2023-04-08 16:22 | P.PN ---
Subjective Progress Note Date: 04/08/23 (delayed charting seen at 0915) Patient is a 62-year-old male with known atrial fibs/flutter (multiple hospitalizations the first on 03/27/2023 and the second on 04/20 both with cardioversions and medications adjustments currently following with Dr. Johnson for EP ablation and needs to undergo sleep study), diabetes mellitus type 2, hypertension, and dyslipidemia who presented to the emergency department with palpitations. In the ER he underwent an extensive evaluation labs were remarkable for white blood cell count of 10.8. Initial troponin was negative. EKG confirmed atrial flutter. In the ER he was given a one-time dose of IV Cardizem and then started on a Cardizem drip. He was seen by cardiology and started on metoprolol. He was admitted to the cardiac unit for further monitor ing. Patient seen and examined at bedside with family present. He continues to have some shortness of breath. He is feeling anxious about his ablation procedure today. Vital signs reviewed General: Nontoxic, no distress, appears at stated age Cardiovascular: S1S2 reg, no murmur Lungs: Decreased bs bilateral, no rhonchi, no rales, no accessory muscle use Abdominal: Soft, nontender to palpation, no guarding Ext: No gross muscle atrophy, no edema b/l lower extremities, no contractures Neuro: CN II-XI grossly intact, no focal neuro deficits Psych: Alert, oriented, appropriate affect Assessment/Plan: Atrial flutter with rapid ventricular response Hypertension Dyslipidemia -Cardiology note reviewed: EP study today, continue oral Cardizem at 120 and metoprolol 200 twice daily -Metoprolol 200 mg twice daily, cardiazem 120 mg daily -Continue to monitor on telemetry. Diabetes mellitus type 2 -Farxiga 10 mg daily , Levemir 60 mg at night, sliding scale insulin - hold actos - follow BS Probable obstructive sleep apnea -Pulmonary consultation placed. Case discussed with Dr. Rodgers and will attempt to set up PSG as soon as possible for the patient, encouraged weight loss Imaging: None new Data Review: Labs reviewed from today include blood sugar of 99 and A1c of 7. DVT prophylaxis: Eliquis Anticipated discharge date: In a.m. Anticipated discharge place: Home This dictation was prepared using [email or web address] voice recognition software. Though every attempt is made to correct errors during dictation some may still exist. Objective - Vital Signs Vital signs: Vital Signs Temp 97.8 F 04/08/23 07:58 Pulse 98 04/08/23 14:31 Resp 16 04/08/23 11:52 BP 132/83 04/08/23 11:52 Pulse Ox 97 04/08/23 11:52 FiO2 Intake & Output 04/07/23 04/08/23 04/08/23 18:59 06:59 18:59 Intake Total 569.333 10 280 Balance 569.333 10 280 Intake: IV 10 10 40 Invasive Line 1 10 10 20 Invasive Line 2 20 Intake, IV Titration 79.333 Amount Diltiazem 125 mg In 79.333 Sodium Chloride 0.9% 100 ml @ 5 MG/HR 5 mls/hr IV .Q24H [facility] Rx#:[id number] Oral 480 240 Other: Voiding Method Toilet Toilet Toilet # Voids 3 1 1 - Labs CBC & Chem 7: 04/07/23 08:29 04/07/23 08:29 Labs: Abnormal Lab Results - Last 24 Hours (Table) 04/07/23 04/07/23 04/08/23 Range/Units 16:46 20:28 06:26 POC Glucose (mg/dL) 111 H 137 H (70-110) mg/dL Hemoglobin A1c 7.0 H (<=6.0) %
[2023-04-08] MEDS ORDERED: PHENYLEPHRINE-0.9% NACL SYG 1,000 MCG/10 ML SYRINGE ONE (16:34)
[2023-04-08] MEDS ORDERED: PROPOFOL 10 MG/ML 20 ML VIAL IV ONE (16:34)
[2023-04-08] MEDS ORDERED: SUCCINYLCHOLINE CHLORIDE 200 MG/10 ML VIAL IV ONE (16:34)
[2023-04-08] MEDS: IV FLUID CONTINUATION 1,000 ML IV ONE (16:34)
[2023-04-08] MEDS ORDERED: CALCIUM CHLORIDE 100 MG/ML 10 ML SYRINGE ONE (16:34)
[2023-04-08] MEDS ORDERED: ROCURONIUM 10 MG/ML (5 ML VIAL) IV ONE (16:34)
[2023-04-08] MEDS ORDERED: NEOSTIGMINE 1 MG/ML 10 ML VIAL ONE (16:34)
[2023-04-08] MEDS ORDERED: LIDOCAINE 1% INJ 10MG/ML (20 ML MDV) ONE (16:34)
[2023-04-08] MEDS ORDERED: GLYCOPYRROLATE 0.2 MG/ML 2 ML VIAL ONE (16:34)
[2023-04-08] MEDS ORDERED: fentaNYL (PF) 50 MCG/ML 2 ML AMP ONE (16:34)
[2023-04-08] MEDS ORDERED: MIDAZOLAM 2 MG/2 ML VIAL ONE (16:34)
[2023-04-08] MEDS: HEPARIN SODIUM (1,000 UNIT/ML) 1,000 UNIT in SODIUM CHLORIDE 0.9% 1,000 ML IRRIGATION ONE (16:53)
[2023-04-08] MEDS: LIDOCAINE 1% INJ 10MG/ML (20 ML MDV) SQ ONE (17:06)
[2023-04-08] MEDS: SODIUM CHLORIDE 0.9% 1,000 ML IV ONE (18:22)
--- NOTE | 2023-04-08 19:03 | P.EPPROC ---
- EP Procedure Note Electrophysiology Procedure Note: Diagnosis Sustained atrial flutter with RVR, symptomatic Failed 2 electrical cardioversions, failed rate control medications Hypertension Increased BMI Obstructive sleep apnea Final diagnosis Typical atrial flutter with RVR Cavotricuspid isthmus dependent Atrial cycle length was 211 ms Termination with RF, complete line of block was made Bidirectional block proven with differential pacing Intracardiac echo revealed LVH with thickened pericardium with a small effusion, exudative Plan Continue Eliquis Assessment of sleep apnea Stop metoprolol and start losartan once again. Hypertension management Weight reduction Details Patient is brought to the EP lab in a fasting state. Written informed consent was obtained prior to the procedure. General anesthesia provided Venous sheaths placed in the right and left femoral veins With these diagnostic catheters were placed in the high right atrium His bundle area right ventricle and coronary sinus Intracardiac echo catheter placed Mapping and ablation cath placed along with a long sheath The patient was in an atrial tachycardia with concentric activation, atrial cycle length of 211 ms Entrainment mapping was performed from the cavotricuspid isthmus and isthmus dependency was proven with concealed entrainment Intracardiac echo revealed 1. LVH with preserved systolic function 2. Thickened pericardium with a small pericardial effusion with exudate at the base of the LV, close to the LA 3. Long cavotricuspid isthmus with thick eustachian ridge 3D electroanatomic mapping was performed And RF A block was made from the tricuspid valve to the eustachian ridge Termination of tachycardia occurred close to the eustachian ridge Thereafter a complete line of block was made. However the isthmus tissue was quite thick and despite using 40 W of power the electrograms were quite sharp Multiple ablations had to be performed and virtually 2 para lines were made in the 6 o'clock position A complete line of block was proven Widely split potentials were noted all along the line with pacing maneuvers Differential pacing revealed bidirectional block Isthmus conduction time 157 ms in either direction In sinus rhythm and EP study was performed Sinus cycle length 732 ms, SC interval 174 ms, QRS 151 ms right bundle branch block pattern and QT interval 352 ms AH interval 78 ms, HV interval 63 ms Patricia response to Para-Hisian pacing AV node Wenckebach block 340 ms VA Wenckebach block 210 ms Sinus node recovery times at 600, 500 and, 400 ms were 941, 989 and 1003 ms, normal All catheters removed Vascade closure was applied Hemostasis was assured Patient tolerated procedure well without any acute complications
[2023-04-08 20:31] LABS: Glucose,Whole Blood 66 mg/dL (70-110)
[2023-04-08] MEDS: SODIUM CHLORIDE 0.9% 1,000 ML IV SCH (20:32)
[2023-04-08 20:55] LABS: Glucose,Whole Blood 72 mg/dL (70-110)
[2023-04-09 05:36] LABS: Glucose,Whole Blood 96 mg/dL (70-110)
[2023-04-09 07:31] LABS: HCT 48.6 % (39.0-53.0); HGB 15.8 gm/dL (13.0-17.5); MCH 30.5 pg (25.0-35.0); MCHC 32.6 g/dL (31.0-37.0); MCV 93.6 fL (80.0-100.0); Mean Platelet Volume 7.1; Platelet Count 235 k/uL (150-450); RBC 5.19 m/uL (4.30-5.90); RDW 13.7 % (11.5-15.5)
[2023-04-09 07:48] VITALS: RESP 18
[2023-04-09 08:01] LABS: ALT 23 U/L (4-49); AST 28 U/L (17-59); African American GFR (CKD) >90 (>60 ml/min/1.73 sqM); Albumin 3.5 g/dL (3.5-5.0); Alkaline Phosphatase 89 U/L (38-126); Anion Gap 8 mmol/L; Blood Urea Nitrogen 15 mg/dL (9-20); Calcium 8.8 mg/dL (8.4-10.2); Carbon Dioxide 25 mmol/L (22-30); Chloride 107 mmol/L (98-107); Glucose 200 mg/dL (74-99); Non-African American GFR(CKD) >90 (>60 ml/min/1.73 sqM); Potassium 4.1 mmol/L (3.5-5.1); Sodium 140 mmol/L (137-145); Total Bilirubin 0.6 mg/dL (0.2-1.3); Total Protein 6.8 g/dL (6.3-8.2)
[2023-04-09] MEDS: LOSARTAN 50 MG TAB PO SCH (09:42)
[2023-04-09 11:36] VITALS: BP 156/95; PULSE 98; TEMP 97.7
--- NOTE | 2023-04-09 14:55 | P.PN ---
Subjective Progress Note Date: 04/09/23 HISTORY OF PRESENTING ILLNESS This is a pleasant 62-year-old male past medical history significant for paroxysmal atrial fib and flutter on eliquis s/p cardioversion, hypertension, dyslipidemia and diabetes mellitus. Follows in the office with Dr. Garcia. We have been asked to see in consultation for atrial flutter. He recently saw Dr. Johnson in the office and is in the process of being scheduled for an a flutter ablation. He presented to the hospital with palpitations and EKG revealed atrial fibs/flutter heart rate of 123. He is currently more rate controlled but in persistent atrial flutter. Laboratory data reviewed, WBC 11.6, hemoglobin 17.1, platelets 242, sodium 141, potassium 4.7, creatinine 0.74 troponin negative x 3, magnesium 1.7 and TSH from previous admission March 31, 2023 was 2.1. Current daily cardiac medications include Eliquis 5 mg twice daily, losartan 50 mg daily, Lopressor 100 mg twice daily and lovastatin 40 mg at bedtime. Most recent echo obtained March 2023 revealed preserved LV systolic function with ejection fraction 55% with mild MR. 04/08 Patient remains in atrial flutter with controlled rate in the 70s to 90s. Blood pressure 136/70. Patient has been the scheduled for atrial flutter ablation today with Dr. Johnson. 04/09 Yesterday, patient underwent atrial fibrillation ablation with Dr. Johnson. Patient remains in a sinus rhythm. He is complaining of throbbing in his right groin. Heart rate is running 103. Patient states he feels tired but otherwise no chest pain, no shortness of breath no palpitations. No lightheadedness or d izziness. PHYSICAL EXAMINATION Vital signs reviewed CONSTITUTIONAL: No apparent distress. HEENT: Head is normocephalic. Pupils are equal, round. Sclerae anicteric. Mucous membranes of the mouth are moist. No JVD. No carotid bruit. CHEST EXAMINATION: Lungs are clear to auscultation. No chest wall tenderness is noted on palpation or with deep breathing. HEART EXAMINATION: Regular rate and rhythm. S1, S2 heard. No murmurs, gallops or rub. ABDOMEN: Soft, nontender. EXTREMITIES: 2+ peripheral pulses, no lower extremity edema and no calf tenderness. NEUROLOGIC EXAMINATION: Patient is awake, alert and oriented x3. ASSESSMENT Typical atrial flutter Hypertension Dyslipidemia Diabetes mellitus PLAN Continue current cardiac medications Patient is cleared for discharge from cardiology will follow-up with Dr. Garcia as scheduled. Nurse Practitioner note has been reviewed, I agree with a documented findings and plan of care. Patient was seen and examined. Objective - Vital Signs Vital signs: Vital Signs Temp 98.4 F 04/09/23 07:44 Pulse 101 H 04/09/23 07:44 Resp 18 04/09/23 07:44 BP 157/93 04/09/23 07:44 Pulse Ox 98 04/09/23 07:44 FiO2 Intake & Output 04/08/23 04/09/23 04/09/23 18:59 06:59 18:59 Intake Total 1797 20 Output Total 400 Balance 1797 -380 Intake: IV 1557 20 Invasive Line 1 20 20 Invasive Line 2 20 Oral 240 Output: Urine 400 Other: Voiding Method Toilet Toilet # Voids 1 1 - Labs CBC & Chem 7: 04/09/23 06:56 04/09/23 06:56 Labs: Abnormal Lab Results - Last 24 Hours (Table) 04/08/23 04/08/23 04/09/23 Range/Units 06:26 20:30 06:56 WBC 11.0 H (3.8-10.6) k/uL Glucose (74-99) mg/dL POC Glucose (mg/dL) 66 L (70-110) mg/dL Hemoglobin A1c 7.0 H (<=6.0) % 04/09/23 Range/Units 06:56 WBC (3.8-10.6) k/uL Glucose 200 H (74-99) mg/dL POC Glucose (mg/dL) (70-110) mg/dL Hemoglobin A1c (<=6.0) %
--- NOTE | 2023-04-09 16:35 | P.DS ---
Providers Date of admission: 04/06/23 18:49 Expected date of discharge: 04/09/23 Attending physician: Gabriella Friedman DO Consults: 04/06/23 18:28 Consult Physician Urgent Consulting Provider: Yobany Brownlee Consult Reason/Comments: Atrial fibrillation with RVR Do you want consulting provider notified?: Yes 04/07/23 10:09 Consult Physician Routine Consulting Provider: Clement Rodgers Consult Reason/Comments: DONNA Do you want consulting provider notified?: Already Contacted Primary care physician: Nav Adams [facility] Course: Discharge Diagnosis: Atrial flutter with rapid ventricular response Hypertension Dyslipidemia Diabetes mellitus type 2, insulin requiring Probable obstructive sleep apnea Hospital Course: Patient is a 62-year-old male with known atrial fibs/flutter (multiple hospitalizations the first on 03/27/2023 and the second on 04/20 both with cardioversions and medications adjustments currently following with Dr. Johnson for EP ablation and needs to undergo sleep study), diabetes mellitus type 2, hypertension, and dyslipidemia who presented to the emergency department with palpitations. In the ER he underwent an extensive evaluation labs were remarkable for white blood cell count of 10.8. Initial troponin was negative. EKG confirmed atrial flutter. In the ER he was given a one-time dose of IV Cardizem and then started on a Cardizem drip. He was seen by cardiology and started on metoprolol. He was admitted to the cardiac unit for further monitoring. His oral medications were optimized yet he continued to be symptomatic with atrial flutter with high heart rates. He was seen by electrophysiology and underwent atrial flutter ablation on 04/08/2023. He tolerated the procedure well. He was taken off of Cardizem and metoprolol. He was determined stable for discharge home. Follow-up: Dr. Johnson on 04/10/2023 Dr. Adams in 1 to 2 days. Continue with Dina. Him and family are aware that pulmonary is working on scheduling sleep study. Patient seen and examined at bedside. He is doing well. Having some throbbing sensation in his groin but no other complaints currently. Vital signs reviewed and stable. General: Nontoxic, no distress, appears at stated age Cardiovascular: S1S2 reg, no murmur, positive posterior tibial pulse bilateral, Lungs: CTA bilateral, no rhonchi, no rales, no accessory muscle use Abdominal: Soft, nontender to palpation, no guarding, no appreciable organomegaly Ext: No gross muscle atrophy, no edema b/l lower extremities, no contractures Neuro: CN II-XI grossly intact, no focal neuro deficits Psych: Alert, oriented, appropriate affect A total of 35 minutes of time were spent preparing this complex discharge summary. Patient was discharged on 04/09/2023. This dictation was prepared using [employer] voice recognition software. Though every attempt is made to correct errors during dictation some may still exist. Patient Condition at Discharge: Stable Plan - Discharge Summary Discharge Rx Participant: No New Discharge Prescriptions: New Losartan [Cozaar] 50 mg PO DAILY #90 tab Continue Dulaglutide [Trulicity] 1.5 mg SQ WE metFORMIN HCL [Glucophage] 1,000 mg PO BID Lovastatin [Mevacor] 40 mg PO HS Insulin Glargine,Hum.rec.anlog [Lantus Solostar Pen] 60 unit SQ HS ARIPiprazole [Abilify] 2 mg PO DAILY Protriptyline HCl [Vivactil] 10 mg PO BID Pioglitazone [Actos] 30 mg PO DAILY ALPRAZolam [Xanax] 1 mg PO BID PRN PRN Reason: Anxiety Insulin Aspart [NovoLOG Flexpen] See Protocol SQ ACHS PRN PRN Reason: HIGH BLOOD SUGAR Empagliflozin [Jardiance] 25 mg PO DAILY Apixaban [Eliquis] 5 mg PO BID #90 tab Discontinued Metoprolol Tartrate [Lopressor] 100 mg PO BID 30 Days #60 tablet Losartan [Cozaar] 50 mg PO DAILY 30 Days #30 tab Discharge Medication List Dulaglutide [Trulicity] 1.5 mg SQ WE 04/17/18 [History] metFORMIN HCL [Glucophage] 1,000 mg PO BID 04/17/18 [History] Insulin Glargine,Hum.rec.anlog [Lantus Solostar Pen] 60 unit SQ HS 03/14/20 [History] Lovastatin [Mevacor] 40 mg PO HS 03/14/20 [History] ARIPiprazole [Abilify] 2 mg PO DAILY 06/28/21 [History] ALPRAZolam [Xanax] 1 mg PO BID PRN 03/27/23 [History] Empagliflozin [Jardiance] 25 mg PO DAILY 03/27/23 [History] Insulin Aspart [NovoLOG Flexpen] See Protocol SQ ACHS PRN 03/27/23 [History] Pioglitazone [Actos] 30 mg PO DAILY 03/27/23 [History] Protriptyline HCl [Vivactil] 10 mg PO BID 03/27/23 [History] Apixaban [Eliquis] 5 mg PO BID #90 tab 03/29/23 [Rx] Losartan [Cozaar] 50 mg PO DAILY #90 tab 04/08/23 [Rx] Follow up Appointment(s)/Referral(s): Enrique Johnson MD [STAFF PHYSICIAN] - 04/10/23 1:30 pm Nav Adams DO [Primary Care Provider] - 1-2 days (Please call to schedule follow up appoitment. Unable to reach office staff. ) Activity/Diet/Wound Care/Special Instructions: Post EP study - Ablation instructions 1. Keep access sites dry for 2 days. 2. No heavy lifting or straining for 2 days. 3. Avoid bending the hips repeatedly for 2 days. 4. You may go up and down stairs slowly 5. No driving until 48 hours post procedure Call if the following is noted 1. Bleeding, increasing swelling or pain at the access sites. 2. Increasing chest discomfort, especially upon taking a deep breath. 3. Increasing shortness of breath, at rest or with exertion. 4. Undue cough / phlegm 5. Difficulty or pain while swallowing. 6. Pain or change in color in the extremities. 7. Fever, chills, rigors. 8. Increasing headache or neurologic symptoms. 9. Dizziness, fainting, palpitations Continue Eliquis Stop metoprolol Start losartan Discharge Disposition: HOME SELF-CARE
== END 2023-04-09 11:51 | disposition home or self-care (01) | DRG 274 ==
LOC: EC 17:19 → 3SCARD 18:49
PROVIDERS: ADMIT Internal Medicine; ATTEND Internal Medicine
PROC: 02583ZZ Destruction of Conduction Mechanism, Percutaneous Approach (ICD-10-PCS; principal; 2023-04-08 12:50)
PROC: 02K83ZZ Map Conduction Mechanism, Percutaneous Approach (ICD-10-PCS; principal; 2023-04-08 12:50)
DX: I48.3 Typical atrial flutter (principal); I48.0 Paroxysmal atrial fibrillation; E11.43 Type 2 diabetes mellitus with diabetic autonomic (poly)neuropathy; K31.84 Gastroparesis; E66.01 Morbid (severe) obesity due to excess calories; I10 Essential (primary) hypertension; Z79.4 Long term (current) use of insulin; E78.5 Hyperlipidemia, unspecified; Z68.37 Body mass index [BMI] 37.0-37.9, adult; F41.9 Anxiety disorder, unspecified; G47.10 Hypersomnia, unspecified; G47.33 Obstructive sleep apnea (adult) (pediatric); I45.10 Unspecified right bundle-branch block; Z79.01 Long term (current) use of anticoagulants; Z79.84 Long term (current) use of oral hypoglycemic drugs; Z79.899 Other long term (current) drug therapy; Z79.85 Long-term (current) use of injectable non-insulin antidiabetic drugs; Z87.891 Personal history of nicotine dependence; Z88.0 Allergy status to penicillin; Z88.8 Allergy status to other drugs, medicaments and biological substances
CPT/HCPCS: 36415; 71045; 80053; 83036; 83735; 83880; 84484; 85025; 85027; 85610; 85730; 93005; 93653; 93662; 94760; 96365; 99291

== ENCOUNTER → 2023-04-22 | Outpatient (CLI) | payer BC ==
--- NOTE | 2023-04-24 12:01 | P.PCN ---
Date of Procedure: 04/24/23 Operative Findings: Home sleep study testing Date of service is 04/22/2023 Pertinent history This is a 62-year-old male patient with typical features of obstructive sleep apnea. The patient had loud snoring, sleep fragmentation and and chronic hypersomnia sleepiness. The patient is also morbidly obese. The patient is having issues with paroxysmal atrial fibrillation. Sleep study was indicated. The patient was given a home sleep study Technical description The vocaltap apnea link system was used to complete this home sleep study. This is a type III home sleep study. The total recording duration was 9 hours and 1 minutes. The study started at 10:25 PM and it ended at 7:27 AM. This was an adequate study as the patient had a total of 8035 minutes of flow monitoring and 8 hours and 51 minutes of oxygen saturation monitoring. Results The respiratory evaluation showed a total of 419 obstructive apneas and a total of 103 obstructive hypopneas. Resulting apnea-hypopnea index was measured to be at 60.7 consistent with severe obstructive sleep apnea. Note that the patient also had some few with central events throughout the sleep study at the predominant pathology was obstructive sleep apnea Oxygenation analysis The patient had multiple episodes of oxygen desaturation with a pulse ox d ropping more than 4%. The minimum recorded pulse ox was 57%. The baseline pulse ox while awake was 98%. Average pulse ox during sleep was 91% and the patient spent approximately 1 hour and 53 minutes of sleep time below pulse ox of 89% Cardiac summary The average heart rate was 84 with a minimum heart rate of 65 and a maximum heart rate of 108 Assessment Severe symptomatic DONNA with an AHI of 60.7. Severe nocturnal oxygen desaturation with a minimum pulse ox of 57% Morbid obesity Chronic hypersomnia sleepiness secondary to obstructive sleep apnea Paroxysmal atrial fibrillation post ablation Plan Will proceed with CPAP titration to treat this patient's severe symptomatic obstructive sleep apnea. The patient will need an immediate titration and further recommendations. Encourage weight loss Maintain regular sleep schedule and optimize sleep hygiene measures Avoid driving especially when feeling drowsy or sleepy Will continue to follow
== END ==
LOC: 3 N SLEEP 10:51
PROVIDERS: ATTEND Internal Medicine Critical Care Medicine
DX: G47.33 Obstructive sleep apnea (adult) (pediatric) (principal); G47.36 Sleep related hypoventilation in conditions classified elsewhere; E66.01 Morbid (severe) obesity due to excess calories; G47.10 Hypersomnia, unspecified; I48.0 Paroxysmal atrial fibrillation; F17.200 Nicotine dependence, unspecified, uncomplicated; Z91.048 Other nonmedicinal substance allergy status; Z88.8 Allergy status to other drugs, medicaments and biological substances; Z88.0 Allergy status to penicillin; Z79.01 Long term (current) use of anticoagulants

== ENCOUNTER 2023-04-25 19:21 | Outpatient (CLI) | payer BC ==
--- NOTE | 2023-05-02 08:53 | P.PCN ---
Date of Procedure: 05/02/23 Operative Findings: Patient study Date of service is 04/25/2023 Pertinent history 62-year-old male patient diagnosed having severe obstructive sleep apnea with an AHI of 60.7. Patient also has history of paroxysmal atrial fibrillation. He has no snoring, sleep fragmentation and chronic hypersomnia sleepiness. Patient is coming in for CPAP titration study Pertinent physical findings The height is 5 feet and 10 inches, weight is 260 pounds and a body mass index is 38.5 Technical description The patient was studied using a standard complex polysomnography protocol that included recording of the 2 EKG, Central, occipital and frontal EEG, right and left outer canthus EOG, submental EMG, right and left anterior tibialis EMG, respiratory airflow by thermocouple and or pressure/flow transducer, respiratory efforts by abdominal and thoracic PVDF belts, oxygen saturation by cable oximetry. Position by observation synchronized the PSG. Equipment used: Exaptive. Stepwise CPAP titration was done to limit obstructive respiratory events. Sleep characteristics The total recording time was 425.5 minutes. Total sleep time was 97.5 minutes. The sleep efficiency was documented to be at 93.4%. Latency to sleep onset was 10 minutes. Latency to REM onset of sleep was 69.5 minutes. The sleep architecture was characterized by 15.3% stage I, 52.5% stage II, 0% stage III anterior 33.2% REM sleep. Respiratory analysis CPAP titration was started initially at a pressure of 6 and a new support and pressure was gradually increased by increments of 1 cm to reach a maximum CPAP pressure of 15 cm of water. This was a very successful titration. All sleep stages were encountered and the patient had minimal amount. The study was done while the patient assumed various body positions including a supine body pelvis centimeters at a pressure of 14 and 15 cm of water, there was complete remission of obstructive respiratory events without any residual apneas or hypopneas. Oxygenation also improved and the patient had no significant desaturations recently while being on a CPAP pressure of 14 Sleep continuity summary The patient had a total number of arousals 30 with an arousal index of 4.5 with a respiratory arousal index of 0.0 Periodic movement events There were a total of 25 mg of the activity with an index of 3.8. No arousals related to PMN Cardiac summary Average HR was 82 with a minimum heart rate of 79 and maximum heart rate of 85 Assessment Severe symptomatic DONNA with an AHI of 60. The patient underwent a successful CPAP titration Paroxysmal atrial fibrillation Chronic hypersomnia sleepiness related to obstructive sleep apnea Morbid obesity with a BMI of 38.5 Plan Initiate CPAP therapy pressure of 14 cm of water with a C-Flex of 3. The patient will be given an AirFit F20 fullface mask large size. Encourage weight loss. Management of A-fib. See me back in the office in 39 days to assess clinical response and compliancy.
== END 2023-04-26 05:00 | disposition home or self-care (01) ==
LOC: 3 N SLEEP 19:21
PROVIDERS: ATTEND Internal Medicine Critical Care Medicine
DX: G47.33 Obstructive sleep apnea (adult) (pediatric) (principal); I48.0 Paroxysmal atrial fibrillation; G47.10 Hypersomnia, unspecified; E66.01 Morbid (severe) obesity due to excess calories; F17.200 Nicotine dependence, unspecified, uncomplicated; Z68.38 Body mass index [BMI] 38.0-38.9, adult; Z91.048 Other nonmedicinal substance allergy status; Z88.8 Allergy status to other drugs, medicaments and biological substances; Z88.0 Allergy status to penicillin; Z79.01 Long term (current) use of anticoagulants
CPT/HCPCS: 95811

== ENCOUNTER → 2023-07-04 | Outpatient (CLI) | payer BC ==
[2023-07-04 13:46] LABS: African American GFR (CKD) >90 (>60 ml/min/1.73 sqM); Blood Urea Nitrogen 28 mg/dL (9-20); Non-African American GFR(CKD) >90 (>60 ml/min/1.73 sqM)
--- NOTE | 2023-07-04 15:24 | CT ---
EXAMINATION TYPE: CT chest w con DATE OF EXAM: 07/04/2023 COMPARISON: HISTORY: Pericardial cyst CT DLP: 646.70 mGycm Automated exposure control for dose reduction was used. TECHNIQUE: CT scan of the chest is performed with IV Contrast, patient injected with 100 mL of Isovue 300. MIP Images are created on CT scanner and reviewed. 3D reconstructed images are created on an independent workstation and reviewed. FINDINGS: There are no suspicious lung masses or nodules. There is no abnormal airspace/consolidative density or abnormal interstitial density. There is no pleural effusion, pleural thickening or pneumothorax. The great vessels chest are normal and is no mediastinal, hilar or axillary adenopathy. There is a sm all 2.7 cm cystic mass adjacent to the right atrium consistent with a small pericardial cyst. There is no mediastinal, hilar or axillary adenopathy. Limited scanning through the upper abdomen reveals no gross abnormality. The osseous structures are intact. IMPRESSION: No significant abnormality seen.
== END | disposition home or self-care (01) ==
LOC: RADCTMAIN 12:57
PROVIDERS: ATTEND Family Medicine
DX: I31.8 Other specified diseases of pericardium (principal)
CPT/HCPCS: 82565; 84520; 71260; Q9967

== ENCOUNTER → 2023-07-23 | Day surgery (SDC) | payer BC ==
[~2023-07-23] MED LIST changes: +ALPRAZolam 0.25 MG TAB PO PRN; +ALPRAZolam 0.5 MG TAB PO PRN; +ASPIRIN 325 MG TAB PO STA; +HEPARIN SODIUM 1,000 UN/ML (10ML VL) ONE; +HEPARIN SODIUM,PORCINE (1 ML) 2,500 UNIT in SODIUM CHLORIDE 0.9% 250 ML IRRIGATION PRN; +HEPARIN SODIUM,PORCINE 10,000 UNIT in SODIUM CHLORIDE 0.9% 1,000 ML IRRIGATION PRN; -LACTATED RINGERS 1,000 ML IV SCH; +LIDOCAINE 1% INJ 10MG/ML (20 ML MDV) ONE; +NITROGLYCERIN SL TABS 0.4 MG TAB SUBLINGUAL PRN; +VERAPAMIL 2.5 MG/ML 2 ML AMP ONE; +fentaNYL (PF) 50 MCG/ML 2 ML AMP ONE
[2023-07-23] MEDS: SODIUM CHLORIDE 0.9% 1,000 ML in EMPTY BAG 1 BAG IV SCH (11:00)
[2023-07-23 11:16] LABS: Basophils # (A) 0.1 k/uL (0-0.2); Basophils % (A) 1 %; Eosinophils # (A) 0.4 k/uL (0-0.7); Eosinophils % (A) 3 %; HCT 47.6 % (39.0-53.0); HGB 15.6 gm/dL (13.0-17.5); Lymphocytes # (A) 2.7 k/uL (1.0-4.8); Lymphocytes % (A) 22 %; MCHC 32.7 g/dL (31.0-37.0); Mean Platelet Volume 7.3; Monocytes # (A) 0.8 k/uL (0-1.0); Monocytes % (A) 6 %; Neutrophils # (A) 7.8 k/uL (1.3-7.7); Neutrophils % (A) 65 %; Platelet Count 220 k/uL (150-450); RBC 5.18 m/uL (4.30-5.90); RDW 13.9 % (11.5-15.5)
[2023-07-23 11:29] LABS: African American GFR (CKD) >90 (>60 ml/min/1.73 sqM); Anion Gap 9 mmol/L; Blood Urea Nitrogen 15 mg/dL (9-20); Calcium 9.1 mg/dL (8.4-10.2); Carbon Dioxide 25 mmol/L (22-30); Chloride 107 mmol/L (98-107); Glucose 111 mg/dL (74-99); Non-African American GFR(CKD) >90 (>60 ml/min/1.73 sqM); Sodium 141 mmol/L (137-145)
[2023-07-23 11:31] LABS: Potassium 4.6 mmol/L (3.5-5.1)
[2023-07-23 11:47] VITALS: TEMP 97.8
[2023-07-23] MEDS: fentaNYL (PF) 50 MCG/ML 2 ML AMP IVP ONE (12:41)
[2023-07-23] MEDS: LIDOCAINE 1% INJ 10MG/ML (20 ML MDV) SQ ONE (12:41)
[2023-07-23] MEDS: MIDAZOLAM 2 MG/2 ML VIAL IVP ONE (12:41)
[2023-07-23] MEDS: VERAPAMIL SYRINGE (5 MG/10 ML) INTRAARTER ONE (12:42)
[2023-07-23] MEDS: HEPARIN SODIUM 1,000 UN/ML (10ML VL) IVP ONE (13:01)
[2023-07-23 13:14] LABS: O2 Sat Blood Gas 73.9 %
[2023-07-23] MEDS: IOPAMIDOL-370 100ML BTL INJ ONE (13:14)
[2023-07-23 13:17] LABS: O2 Sat Blood Gas 90.3 %
[2023-07-23 13:18] LABS: O2 Sat Blood Gas 73.1 %
[2023-07-23 15:42] VITALS: BP 158/74; PULSE 86; RESP 16
--- NOTE | 2023-07-23 16:41 | P.CARDCATH ---
Date of Procedure: 07/23/23 Description of Procedure: DIAGNOSTIC CORONARY ANGIOGRAPHY, right heart cath and LEFT HEART CATH REPORT PROCEDURES PERFORMED: Left heart catheterization Right heart catheterization Selective coronary angiography Moderate conscious sedation 30 mins Right radial access INDICATION: 62-year-old male with past medical history of atrial flutter s/p ablation. Post ablation patient continued to have symptoms of dyspnea on exertion and substernal chest pressure. He endorsed symptoms of exertional shortness of breath with NYHA class III symptoms. He was appropriately managed on antianginals and heart failure medications to treat his diastolic heart failure with minimal clinical response. Due to ongoing symptoms, his risk factors of diabetes, obesity, hypertension, he was scheduled for a left and right heart catheterization. CONSENT: I have explained the procedural steps of above-mentioned procedures in layman's terms to the patient. I discussed the risks (including but not limited to stroke, emergent vascular or cardiac surgery or ), benefits and alternative therapies for the above-mentioned procedure. I discussed the risks of sedation/analgesia and blood product administration (if indicated). The patient has indicated understanding and acceptance of these risks. Conscious Sedation: Patient's ECG, heart rate, blood pressure, pulse oximetry were monitored throughout the duration of procedure under my direct supervision. [2] mg Versed and [50] mg Fentanyl were used for induction of moderate conscious sedation. Total duration of moderate concious sedation 30 minutes. PROCEDURE: After explaining the risks, benefits and alternatives of the above mentioned procedures in detail to the patient, informed consent was obtained. Patient was taken to the catheterization lab, prepped and draped in usual sterile fashion using universal precuations. Barbow and gildardo test were perfor med to confirm adequate perfusion to fingers. Ultrasound was used to identify the radial artery. 1% lidocaine was infiltrated over the right radial artery. A 6-[place] sheath was placed and secured in the right radial artery using modified Seldinger technique. The sheath was flushed and 5 mg verapamil was administered intra-arterially. J tipped wire was advanced under fluoroscopic guidance. Once the wire tip reached aortic root [5000] units of IV heparin was given. Over the wire JR4 diagnostic catheter was advanced. The wire in place the catheter was manipulated to cross the aortic valve and entered into LV under fluoroscopy guidance. The wire was removed and the catheter was flushed. LV pressures were obtained and pullback was performed under fluoroscopy. Catheter was manipulated to selectively engage the right coronary ostium. Right coronary angiography was performed in different angiographic projections. The JR4 diagnostic catheter was exchanged for a JL 3.5 diagnostic catheter over the wire. This catheter seemed smaller. It was exchanged for a JL 4 diagnostic catheter over the J-wire. The wire was removed, catheter was flushed and manipulated under fluoroscopy to selectively engaged the left coronary ostium. Left coronary angioplasty was performed in different angiographic projections. Catheter was removed over the wire. Radial sheath was flushed. The right radial sheath was removed and a TR band was placed with excellent patent hemostasis was achieved. The patient tolerated the procedure well. Patient was transported back to the post catheterization holding area in stable condition. Angiographic images were reviewed in detail. HEMODYNAMICS: Aortic Pressure: 109/60 mmHg. LV pressure: 110/10 mmHg. LVEDP 20 mmHg. There was no significant gradient across the aortic valve. Right heart catheterization Mean wedge pressure 16 mmHg PA pressure 35/20 mmHg, mean PA pressure 27 mmHg RV pressure 48 over 6 mmHg, RVEDP 10 mmHg Mean RA pressure 10 mmHg Hemoglobin 15.6, BSA 4.51 Arterial sat 90% Pulmonary artery saturation 75% RA saturation 75% RV sat 75% Shayne cardiac output 20.2 liters per minute. Shayne cardiac index 4.48 L/min/m Thermodilution cardiac output 12.9 L/min Thermodilution cardiac index 2.86 L/min/m SELECTIVE CORONARY ARTERIOGRAPHY: LEFT MAIN: The left main is a large caliber vessel which bifurcates into the LAD and circumflex. Left main appears angiographically normal. LEFT ANTERIOR DESCENDING CORONARY ARTERY: LAD is a large caliber vessel which wr aps around to the apex. Proximal and mid LAD has mild luminal irregularities. It gives rise to diagonal branches appears angiographically normal. Distal LAD appears angiographically normal. LEFT CIRCUMFLEX CORONARY ARTERY: It is nondominant vessel. Left circumflex is a moderate caliber vessel. It has mild luminal irregularities. It gives rise to OM branches appears angiographically normal RIGHT CORONARY ARTERY: Dominant vessel. Proximal mid and distal RCA has mild luminal irregularities. They gives rise to PDA and PL branches as well as angiographically normal IMPRESSION: Mild nonobstructive CAD Mildly elevated LVEDP, Mild pulm hypertension, likely due to DONNA PLAN: Aggressive risk factor modification per most recent ACC/AHA guidelines Recommend better BP control and appropriate DONNA treatment 125 cc fluids for 3 hours Discharge home in 3 hours Follow-up in the office in 1-2 weeks. Performing Physician Suresh Garcia MD, FACC, RPVI Thank you for allowing [facility] to participate in this patient's care. Feel free to reach out in case of any followup questions.
== END ==
LOC: CATHCVL 10:09
PROVIDERS: ATTEND Student in an Organized Health Care Education/Training Program
DX: I25.10 Atherosclerotic heart disease of native coronary artery without angina pectoris (principal); I10 Essential (primary) hypertension; E78.5 Hyperlipidemia, unspecified; E11.9 Type 2 diabetes mellitus without complications; F17.210 Nicotine dependence, cigarettes, uncomplicated; Z82.49 Family history of ischemic heart disease and other diseases of the circulatory system; Z79.01 Long term (current) use of anticoagulants; Z79.899 Other long term (current) drug therapy
CPT/HCPCS: 93460; 76937; 80048; 85018; 82810; 85025; C1769 ×2; C1894; C1751; J2250; J2001; J3010; J1644; Q9967

== ENCOUNTER → 2023-10-25 | Outpatient (CLI) | payer BC ==
--- NOTE | 2023-10-25 18:21 | US ---
EXAMINATION TYPE: US bladder DATE OF EXAM: 10/25/2023 COMPARISON: NONE CLINICAL INDICATION: Male, 63 years old with history of R35.0 FREQUENCY OF MICTURITION; frequent urin ation x a few months TECHNIQUE: Multiple sonographic images of the bladder are obtained. FINDINGS: EXAM MEASUREMENTS: Post Void Residual Volume: 66.2 mL ROLLED SEAT TRIMMER NOTES: bladder appears sonolucent and unremarkable. Color Doppler performed to assess ureteral jets. Bilateral Jets seen: Yes Normal Post Void Residual (less than 50ml) IMPRESSION: Postvoid bladder volume increased at 66 mL suggests urinary retention. No other specific sonographic abnormality of the bladder identified.
== END | disposition home or self-care (01) ==
LOC: RADUSWWP 12:06
PROVIDERS: ATTEND Family Medicine
DX: R35.0 Frequency of micturition (principal)
CPT/HCPCS: 76857

== ENCOUNTER → 2024-01-17 | Outpatient (CLI) | payer BC ==
[2024-01-17 08:43] LABS: African American GFR (CKD) >90 (>60 ml/min/1.73 sqM); Blood Urea Nitrogen 19 mg/dL (9-20); Non-African American GFR(CKD) 86 (>60 ml/min/1.73 sqM)
--- NOTE | 2024-01-17 10:03 | CT ---
EXAMINATION TYPE: CT urogram wo/w con DATE OF EXAM: 01/17/2024 9:30 AM COMPARISON: None. CLINICAL INDICATION: Male, 63 years old with history of R31.0 Gross hematuria, gross heamturia x9 mon ths, TECHNIQUE: CT Urography was performed with unenhanced followed by enhanced images of the kidneys, ure ters and urinary bladder. Delayed images were obtained. 3D reconstruction performed on a separate w orkstation. IV CONTRAST: with IV Contrast, patient injected with 100 mL of Isovue 300. (None if empty) CT DLP: 3640 mGycm, Automated exposure control for dose reduction was used. FINDINGS: KIDNEYS/BLADDER: No hydronephrosis. Nonobstructing 3 mm calculus lower pole left kidney. No disctinc t renal mass. Urinary bladder grossly unremarkable. LUNG BASES-: No visible nodule. No infiltrate. Mild hepatic steatosis. LIVER/GB: No calcified gallstones. No space occupying hepatic lesion. Biliary tree is of normal ca liber. PANCREAS: No inflammation. No distinct mass. SPLEEN: No splenic enlargement. No lesion seen. ADRENALS: No nodule. No thickening. BOWEL: Normal appendix. Normal bowel caliber. No inflammation. GENITAL ORGANS: Prostate gland enlargement. LYMPH NODES: No greater than 1cm abdominal or pelvic lymph nodes are appreciated. AORTA: No significant abnormality. OSSEOUS STRUCTURES: No significant abnormality is seen. OTHER: No significant additional abnormality is seen. IMPRESSION: 1. No significant abnormality to account for the patient's symptoms of gross hematuria. There is a no nobstructing 3 mm calculus lower pole left kidney. [facility], , 01/17/2024 10:01 AM
== END | disposition home or self-care (01) ==
LOC: RADCTMAIN 08:06
PROVIDERS: ATTEND Urology
DX: N20.0 Calculus of kidney (principal)
CPT/HCPCS: 82565; 84520; 74178; 36415; 74400; Q9967

== ENCOUNTER → 2024-05-01 | Outpatient (CLI) | payer BC ==
--- NOTE | 2024-05-01 14:49 | US ---
EXAMINATION TYPE: US bladder DATE OF EXAM: 05/01/2024 COMPARISON: Ultrasound bladder 10/25/2023, CT urogram 01/17/2024 CLINICAL INDICATION: Male, 63 years old with history of N40.1 BENIGN PROSTATIC HYPERPLASIA; Patient s tates high urine frequency TECHNIQUE: Grayscale and color doppler imaging of the bilateral kidneys and urinary bladder. FINDINGS: EXAM MEASUREMENTS: Post Void Residual Volume: 246.1 mL DREDGE PIPE OPERATOR NOTES: Patient voided twice during scan and said he went both times Color Doppler performed to assess ureteral jets. Bilateral Jets seen Normal Post Void Residual (less than 50ml): No Anechoic appearance of bladder without wall thickening. No intraluminal filling defect identified. Ab normal postvoid residual of 246.1 mL. IMPRESSION: Abnormal urinary bladder postvoid residual volume of 246.1 mL. Suggest urinary retention again. No ot her specific sonographic evidence for abnormality of the urinary bladder. [facility], , 05/01/2024 2:47 PM
== END | disposition home or self-care (01) ==
LOC: RADUSWWP 14:12
PROVIDERS: ATTEND Family Medicine
DX: N40.1 Benign prostatic hyperplasia with lower urinary tract symptoms (principal); R39.198 Other difficulties with micturition
CPT/HCPCS: 76857